=== PATIENT | male | born 1940 | race Caucasian/White ===

== ENCOUNTER 2017-08-30 01:48 | Inpatient (IN) ==
[2017-08-30 02:51] LABS: Baso # (Auto) 0.1 th/mm3 (0.0-0.2); Baso % (Auto) 0.2 % (0.0-2.0); Eos # (Auto) 0.2 th/mm3 (0.0-0.4); Eos % (Auto) 0.9 % (0.0-4.0); Hematocrit 42.8 % (39.0-51.0); Hemoglobin 13.9 gm/dL (13.0-17.0); Lymph % (Auto) 4.4 % (9.0-44.0); Mean Corpuscular HGB Conc 32.4 % (32.0-36.0); Mean Corpuscular Hemoglobin 26.7 pg (27.0-34.0); Mean Corpuscular Volume 82.5 fL (80.0-100.0); Mean Platelet Volume 7.4 fL (7.0-11.0); Mono # (Auto) 1.2 th/mm3 (0.0-0.9); Neut % (Auto) 89.5 % (16.0-70.0); Platelet Count 371 th/mm3 (150-450); Red Blood Count 5.18 mil/mm3 (4.50-5.90); Red Cell Distribution Width 15.3 % (11.6-17.2); White Blood Count 23.4 th/mm3 (4.0-11.0)
[2017-08-30 03:04] LABS: Activated Partial Thrombo Time 53.1 sec (24.3-30.1); Prothrombin Time 20.2 sec (9.8-11.6)
[2017-08-30 03:08] LABS: Albumin 1.7 g/dL (3.4-5.0); Anion Gap 15 meq/L (5-15); Aspartate Aminotransferase 20 U/L (15-37); Blood Urea Nitrogen 7 mg/dL (7-18); Calcium 8.5 mg/dL (8.5-10.1); Carbon Dioxide 21.2 meq/L (21.0-32.0); Chloride 108 meq/L (98-107); D-Dimer 1.13 mg/L FEU (0.00-0.50); Glomerular Filtration Rate 73 mL/min (>89); Glucose,Random 95 mg/dL (74-106); Magnesium 1.8 mg/dL (1.5-2.5); Potassium 3.7 meq/L (3.5-5.1); Sodium 144 meq/L (136-145)
[2017-08-30 03:12] LABS: Alkaline Phosphatase 81 U/L (45-117); Total Protein 5.5 g/dL (6.4-8.2)
[2017-08-30 03:13] LABS: Creatine Kinase 28 U/L (39-308)
[2017-08-30] MEDS ORDERED: Vancomycin Inj 1 GM/200 ML PIGGYBACK IV.SIG ONE (03:47)
--- NOTE | 2017-08-30 03:53 | XR ---
EXAM DATE: 08/30/2017 3:32 AM EDT AGE/SEX: 76 years / Male INDICATIONS: Shortness of breath. CLINICAL DATA: This is the patient's initial encounter. Patient reports that signs and symptoms have been present for 1 day and indicates a pain score of Nonresponsive. MEDICAL/SURGICAL HISTORY: Hypertension. Stroke. Carcinoma, prostatic. Dementia. Parkinson's. . Heart valve replacement. COMPARISON: No prior exams available for comparison. FINDINGS: Single AP view of the chest. Median sternotomy wires. Prosthetic cardiac valve. Mild right hemidiaphr agm elevation. Small right pleural effusion. Mild bilateral pulmonary parenchymal opacity likely repr esenting mild pulmonary edema. CONCLUSION: 1. Mild bilateral hazy pulmonary opacity, likely representing mild pulmonary edema. 2. Small right pleural effusion. Electronically signed by: Clark Busch MD 08/30/2017 3:52 AM EDT
[2017-08-30 04:35] LABS: Bacteria,Urine Few /hpf; Bilirubin,Urine Negative (Negative); Calcium Oxalate Crystals,Urine Occasional /hpf; Clarity,Urine Turbid (Clear); Color,Urine Amber (Yellw/Straw); Glucose,Urine (UA) Negative (Negative); Leukocyte Esterase,Urine Large (Negative); Nitrite,Urine Negative (Negative); Specific Gravity,Urine 1.036 (1.002-1.035)
--- NOTE | 2017-08-30 05:03 | ED ---
HPI General Chief complaint: Respiratory Symptoms Stated complaint: Diff breathing, EVAC Time Seen by Provider: 08/30/17 02:08 History of Present Illness HPI narrative: Patient presented from [facility] and rehab secondary to respiratory distress. Satting 70% on 2 L with rales in all lung louis per EMS. Receiving IV Zosyn for presumed sepsis (stage 4 ulcer). They used the BVM his O2 sats increased to 80%. He is a DNR/DNI. Unable to get history from the patient secondary to have being on BiPAP. Related Data Allergies Allergy/AdvReac Type Severity Reaction Status Date / Time No Known Allergies Allergy Mild Uncoded 08/27/05 01:39 Review of Systems ROS Unobtainable other [facility] Medical History Medical History Atrial fibrillation (Acute) CVA (cerebral vascular accident) (Acute) Dementia (Acute) Edema (Acute) GERD (gastroesophageal reflux disease) (Acute) Hypertension (Acute) Hypokalemia (Acute) PTSD (post-traumatic stress disorder) (Acute) Parkinson disease (Acute) Pressure ulcer (Acute) Prostate cancer (Acute) Surgical History Surgical History Hx of prosthetic heart valve (Acute) Social History Social History Substance History: Unable to Obtain Smoking Status: Unknown if ever smoked How Often Do You Have a Drink Containing Alcohol: Unable to Obtain Recent Travel in [facility] within the Last 8 Weeks: No Recent Out of Country Travel within the Last 8 Weeks: No Immunization History Tetanus Immunization: Unable to Assess Exam Narrative Exam Narrative: GENERAL: In respiratory distress. SKIN: Focused skin assessment warm/dry. HEAD: Atraumatic. Normocephalic. EYES: Pupils equal and round. No scleral icterus. No injection or drainage. ENT: No nasal bleeding or discharge. Mucous membranes pink and moist. NECK: Trachea midline. No JVD. CARDIOVASCULAR: Regular rate and rhythm. No murmur appreciated. RESPIRATORY: Coarse breath sounds bilaterally, tachypneic. GASTROINTESTINAL: Abdomen soft, non-tender, nondistended. Hepatic and splenic margins not palpable. Stage 4 ulcer, no drainage, slight erythema around wound. MUSCULOSKELETAL: Extremities in contractures. NEUROLOGICAL: Awake and alert. No obvious cranial nerve deficits. Motor grossly within normal limits. Normal speech. PSYCHIATRIC: Appropriate mood and affect; insight and judgment normal. Course Initial Documented Vital Signs Temperature 97.8 F 08/30/17 01:54 Pulse Rate 111 H 08/30/17 01:54 Respiratory Rate 24 08/30/17 01:54 Blood Pressure 154/112 H 08/30/17 01:54 Pulse Oximetry 100 08/30/17 01:54 Last Documented Vital Signs Temperature 97.8 F 08/30/17 01:54 Pulse Rate 122 H 08/30/17 03:15 Respiratory Rate 24 08/30/17 03:15 Blood Pressure 168/81 H 08/30/17 03:15 Pulse Oximetry 100 08/30/17 03:15 Medical Decision Making [facility] Narrative Medical decision making narrative: Patient presents to the ER and respiratory distress. Patient was placed on BiPAP and labs/EKG/chest x-ray ordered. ECG: Difficult to assess secondary to patient's respiratory, rate approximately 99, A. fib, left axis deviation, QTC 427.Given 1gram IV vancomycin in ER as he's already getting zosyn. Labs: elevated wbc count, INR 2, elevated d-dimer, BNP increased, Ua-+ UTI, CXR: CONCLUSION: 1. Mild bilateral hazy pulmonary opacity, likely representing mild pulmonary edema. 2. Small right pleural effusion. CTA chest: CONCLUSION:1. No evidence of pulmonary embolus.2. 3 cm filling defectin the left atrium suspicious for thrombus.3. Moderate severity bilateral lower lobe pulmonary consolidation/atelectasis and small pleural effusions.4. 7 mm nodular density right upper lobe. Recommend six-month follow-up noncontrast chest CT.5. Cholelithiasis. Differential Diagnosis Differential Diagnosis: Pneumonia, PE, pulmonary edema, pleural effusion, pneumothorax Lab Data Result diagrams: 08/30/17 02:40 08/30/17 02:40 Lab Results 08/30/17 08/30/17 08/30/17 Range/Units 02:40 02:40 02:40 WBC 23.4 H (4.0-11.0) th/mm3 RBC 5.18 (4.50-5.90) mil/mm3 Hgb 13.9 (13.0-17.0) gm/dL Hct 42.8 (39.0-51.0) % MCV 82.5 (80.0-100.0) fL MCH 26.7 L (27.0-34.0) pg MCHC 32.4 (32.0-36.0) % RDW 15.3 (11.6-17.2) % Plt Count 371 (150-450) th/mm3 MPV 7.4 (7.0-11.0) fL Neut % (Auto) 89.5 H (16.0-70.0) % Lymph % (Auto) 4.4 L (9.0-44.0) % Grainger % (Auto) 5.0 (0.0-8.0) % Eos % (Auto) 0.9 (0.0-4.0) % Baso % (Auto) 0.2 (0.0-2.0) % Neut # (Auto) 21.0 H (1.8-7.7) th/mm3 Lymph # (Auto) 1.0 (1.0-4.8) th/mm3 Grainger # (Auto) 1.2 H (0.0-0.9) th/mm3 Eos # (Auto) 0.2 (0.0-0.4) th/mm3 Baso # (Auto) 0.1 (0.0-0.2) th/mm3 WBC Differential . Differential Comment Auto diff final PT 20.2 H (9.8-11.6) sec INR 2.0 Ratio APTT 53.1 H (24.3-30.1) sec D-Dimer Quant (PE/DVT) 1.13 H (0.00-0.50) mg/L FEU Sodium 144 (136-145) meq/L Potassium 3.7 (3.5-5.1) meq/L Chloride 108 H (98-107) meq/L Carbon Dioxide 21.2 (21.0-32.0) meq/L Anion Gap 15 (5-15) meq/L BUN 7 (7-18) mg/dL Creatinine 0.99 (0.60-1.30) mg/dL Estimated GFR 73 L (>89) mL/min Random Glucose 95 (74-106) mg/dL Calcium 8.5 (8.5-10.1) mg/dL Magnesium 1.8 (1.5-2.5) mg/dL Total Bilirubin 0.7 (0.2-1.0) mg/dL AST 20 (15-37) U/L ALT Less than 6 L (12-78) U/L Alkaline Phosphatase 81 (45-117) U/L Total Creatine Kinase 28 L (39-308) U/L Troponin I Less than 0.02 L (0.02-0.05) ng/mL B-Natriuretic Peptide (0-100) pg/mL Total Protein 5.5 L (6.4-8.2) g/dL Albumin 1.7 L (3.4-5.0) g/dL Urine Color (Yellw/Straw) Urine Clarity (Clear) Urine pH (5.0-8.5) Ur Specific [place] (1.002-1.035) Urine Protein (Neg-Trace) mg/dL Urine Glucose (UA) (Negative) mg/dL Urine Ketones (Negative) mg/dL Urine Occult Blood (Negative) Urine Nitrate (Negative) Urine Bilirubin (Negative) Urine Urobilinogen (Less than 2) mg/dL Ur Leukocyte Esterase (Negative) Urine RBC (0-3) /hpf Urine WBC (0-5) /hpf Urine WBC Clumps (None) Calcium Oxalate Crystal (None) /hpf Urine Bacteria (None) /hpf Urine Yeast (None) /hpf Micro UA Comment Urine Culture Comments 08/30/17 08/30/17 Range/Units 02:40 04:10 WBC (4.0-11.0) th/mm3 RBC (4.50-5.90) mil/mm3 Hgb (13.0-17.0) gm/dL Hct (39.0-51.0) % MCV (80.0-100.0) fL MCH (27.0-34.0) pg MCHC (32.0-36.0) % RDW (11.6-17.2) % Plt Count (150-450) th/mm3 MPV (7.0-11.0) fL Neut % (Auto) (16.0-70.0) % Lymph % (Auto) (9.0-44.0) % Grainger % (Auto) (0.0-8.0) % Eos % (Auto) (0.0-4.0) % Baso % (Auto) (0.0-2.0) % Neut # (Auto) (1.8-7.7) th/mm3 Lymph # (Auto) (1.0-4.8) th/mm3 Grainger # (Auto) (0.0-0.9) th/mm3 Eos # (Auto) (0.0-0.4) th/mm3 Baso # (Auto) (0.0-0.2) th/mm3 WBC Differential Differential Comment PT (9.8-11.6) sec INR Ratio APTT (24.3-30.1) sec D-Dimer Quant (PE/DVT) (0.00-0.50) mg/L FEU Sodium (136-145) meq/L Potassium (3.5-5.1) meq/L Chloride (98-107) meq/L Carbon Dioxide (21.0-32.0) meq/L Anion Gap (5-15) meq/L BUN (7-18) mg/dL Creatinine (0.60-1.30) mg/dL Estimated GFR (>89) mL/min Random Glucose (74-106) mg/dL Calcium (8.5-10.1) mg/dL Magnesium (1.5-2.5) mg/dL Total Bilirubin (0.2-1.0) mg/dL AST (15-37) U/L ALT (12-78) U/L Alkaline Phosphatase (45-117) U/L Total Creatine Kinase (39-308) U/L Troponin I (0.02-0.05) ng/mL B-Natriuretic Peptide 461 H (0-100) pg/mL Total Protein (6.4-8.2) g/dL Albumin (3.4-5.0) g/dL Urine Color [place] (Yellw/Straw) Urine Clarity Turbid H (Clear) Urine pH 5.0 (5.0-8.5) Ur Specific [place] 1.036 H (1.002-1.035) Urine Protein 30 H (Neg-Trace) mg/dL Urine Glucose (UA) Negative (Negative) mg/dL Urine Ketones Trace (Negative) mg/dL Urine Occult Blood Large H (Negative) Urine Nitrate Negative (Negative) Urine Bilirubin Negative (Negative) Urine Urobilinogen Less than 2 (Less than 2) mg/dL Ur Leukocyte Esterase Large H (Negative) Urine RBC 75 H (0-3) /hpf Urine WBC (0-5) /hpf Urine WBC Clumps Occasional H (None) Calcium Oxalate Crystal Occasional H (None) /hpf Urine Bacteria Few H (None) /hpf Urine Yeast Many H (None) /hpf Micro UA Comment Cath-culture ind Urine Culture Comments Cath-cult indicated Imaging Data Radiologist's impression: ITS Impressions Chest X-Ray 08/30/17 02:22 CONCLUSION: 1. Mild bilateral hazy pulmonary opacity, likely representing mild pulmonary edema. 2. Small right pleural effusion. Chest CTA 08/30/17 03:47 CONCLUSION: 1. No evidence of pulmonary embolus. 2. 3 cm filling defect in the left atrium suspicious for thrombus. 3. Moderate severity bilateral lower lobe pulmonary consolidation/atelectasis and small pleural effusions. 4. 7 mm nodular density right upper lobe. Recommend six-month follow-up noncontrast chest CT. 5. Cholelithiasis. Discharge Plan Discharge Disposition Patient Disposition: 30 Still Patient Discharge Condition Condition: Fair Discharge Details Discharge Problem: Pneumonia, Bacterial UTI Physicians Team ED Provider: Cris Blanton Primary Care Provider: Herminio Mendez Attending Provider: Juliana Hidalgo Discharge Interventions Interventions: Vital Signs Last Done: 08/30/17 03:15 Status ED Status: Admitted Patient
--- NOTE | 2017-08-30 05:07 | CT ---
EXAM DATE: 08/30/2017 4:45 AM EDT AGE/SEX: 76 years / Male INDICATIONS: Shortness of breath; rule out pulmonary embolus. CLINICAL DATA: This is the patient's initial encounter. Patient reports that signs and symptoms have been present for 1 day and indicates a pain score of 0/10. MEDICAL/SURGICAL HISTORY: Cardiovascular disease. Gastroesophageal reflux disease. Hypertension. Parkinsons disease, Dementia, . Valve replacement RADIATION DOSE: 10.68 CTDI (mGy) COMPARISON: No prior exams available for comparison. TECHNIQUE: Volumetric scanning was performed using a multi-row detector CT scanner during bolus infu jarred of 77 ml Omnipaque 350 (iohexol) nonionic water-soluble contrast as a single exam dose. The sandro a was post processed with a variety of visualization algorithms including full volume maximum intensi ty projection and sliding thin slab reformation. Using automated exposure control and adjustment of the mA and/or kV according to patient size, radiation dose was kept as low as reasonably achievable t o obtain optimal diagnostic quality images. DICOM format image data is available electronically for review and comparison. FINDINGS: There is good opacification of the pulmonary arteries. No filling defects to suggest pulmonary embolu s. Approximately 3 cm filling defect is seen anteriorly within the left atrium suggesting thrombus. The thoracic aorta is normal diameter. Moderate-sized areas of pulmonary consolidation/atelectasis in the lower lobes bilaterally. 7 mm nodu lar density in the right upper lobe on image #44. Small bilateral pleural effusions left greater than right. Mildly prominent precarinal lymph node fay suring 1.3 cm. Coronary artery calcification noted. Calcified gallstones in the gallbladder. CONCLUSION: 1. No evidence of pulmonary embolus. 2. 3 cm filling defect in the left atrium suspicious for thrombus. 3. Moderate severity bilateral lower lobe pulmonary consolidation/atelectasis and small pleural effu sions. 4. 7 mm nodular density right upper lobe. Recommend six-month follow-up noncontrast chest CT. 5. Cholelithiasis. Electronically signed by: Clark Busch MD 08/30/2017 5:05 AM EDT
[2017-08-30] MEDS ORDERED: Vancomycin Consult Pharmacy 1 EACH OTHER SCH (05:50)
[2017-08-30] MEDS ORDERED: Acetaminophen 325 MG Tablet PO PRN (05:55)
[2017-08-30] MEDS ORDERED: Bisacodyl 10 MG Supp RECTAL PRN (05:55)
[2017-08-30] MEDS: Heparin - SQ 10,000 UNITS/ML Vial SQ SCH ×2 (06:52→17:37)
[2017-08-30] MEDS: Piperacil/Tazo 4.5 GM Premix 4.5 GM/100 ML BAG IV.SIG SCH ×3 (09:30→21:13)
--- NOTE | 2017-08-30 11:13 | ECG ---
Date Performed: 08/30/2017 Time Performed: 03:32:08 PTAGE: 76 years EKG: POSSIBLE ATRIAL FIBRILLATION EXTENSIVE BASELINE ARTEFACT LEFT BUNDLE BRANCH BLOCK ABNORMAL ECG PREVIOUS TRACING : 09/07/2005 00.37 Compared to previous tracing, extensive baseline artefact a nd left bundle branch block pattern are now present. DOCTOR: Omer Gregg Interpretating Date/Time 08/30/2017 11:12:54
[2017-08-30 12:09] LABS: ABG Base Excess -3.3 mmol/L (-2-2); ABG PCO2 27 mmHg (38-42); ABG PO2 237 mmHg (61-120)
[2017-08-30] MEDS: Senna/Docusate Sodium 8.6/50 MG Tablet PO SCH ×2 (14:59→20:54)
--- NOTE | 2017-08-30 16:20 | P.HPIM ---
History of Present Illness Primary Care Physician: Herminio Mendez MD Chief Complaint: sob, sent for evaluation History of Present Illness: The patient is chronically ill 76-year-old male with past medical history of advanced Parkinson's, bedbound, atrial fibrillation, endocarditis status post valve replacement, prostate cancer. The [facility] for further evaluation of respiratory distress. He was saturating 70% on 2 L by nasal cannula with Rales in all lung louis when EMS arrived. Patient also has stage IV ulcer and he receive IV Zosyn for sepsis. The patient is DNR/ DNI. History is obtained from records, staff and spoke with his by phone. also is telling me she was talking with hospice residential facility and she is considering hospice. However what the is very upset because EMS brought the patient [place] and she wanted the patient to go to [facility] was he always being there admitted and he was recently admitted at [facility] for sepsis stage 4 decub ulcers. The patient follows with neurologist Dr. Childress and also with his PCP. Inpatient Certification: I certify that the inpatient services were ordered in accordance with Medicare regulations governing the order. This includes certification that hospital inpatient services are reasonable and necessary and in the case of services not specified as inpatient-only under 42 CFR 419.22(n), that they are appropriately provided as inpatient services in accordance to with the 2-midnight benchmark under 43 CFR 412.3(e) Estimated Total Length of Stay (Days): 3 Plans for Post Hospital Care: Not yet determined Review of Systems Ros review by as patient not able to communicate. Ros negative except as stated in HPI. PMFSH - History History Provided By: Family Member (I spoke with his ) - Medical History Medical History: Medical History (Last Reviewed 08/30/17 @ 15:44 by Lawanda Bustamante MD) Atrial fibrillation CVA (cerebral vascular accident) Dementia Edema GERD (gastroesophageal reflux disease) Hypertension Hypokalemia PTSD (post-traumatic stress disorder) Parkinson disease Pressure ulcer Prostate cancer - Surgical History Surgical History: Surgical History (Last Reviewed 08/30/17 @ 15:44 by Lawanda Bustamante MD) Hx of prosthetic heart valve - Family History Family History: Family History (Last Updated 08/30/17 @ 15:47 by Lawanda Bustamante MD) Mother Stroke Father Prostate CA - Tobacco History Smoking Status: Unknown if ever smoked - Alcohol History How Often Do You Have a Drink Containing Alcohol: Unable to Obtain - Substance Use History Substance History: Unable to Obtain - Travel History Recent Travel in the [place] Within the Last 8 Weeks: No Recent Travel Out of the Country Within the Last 8 Weeks: No - Immunization History Tetanus Immunization: Unable to Assess Medications and Allergies Active Medications: Active Medications Acetaminophen (Tylenol) 650 mg PO Q4H PRN PRN Reason: Temp > 100.4 Al Hydroxide/Mg Hydroxide (Milk Of Magnesia Liq) 30 ml PO Q12H PRN PRN Reason: Mild Constipation Bisacodyl (Dulcolax Supp) 10 mg RECTAL DAILY PRN PRN Reason: SEVERE CONSITIPATION Heparin Sodium (Porcine) (Heparin Inj) 5,000 units SQ Q12H [facility] Last Admin: 08/30/17 06:52 Dose: 5,000 units Pharmacy Profile Note (Vancomycin Consult Pharmacy) 0 mls @ 0 mls/hr OTHER UNSCH [facility] Piperacillin/Tazobactam/Dextrose (Zosyn 4.5 Gm Premix) 4.5 gm in 100 mls @ 200 mls/hr IV.SIG Q6H [facility] Last Admin: 08/30/17 09:30 Dose: Not Given Vancomycin HCl 1,500 mg/ (Sodium Chloride) 515 mls @ 250 mls/hr IV.SIG Q18H [facility] Lactulose (Lactulose Liq) 30 ml PO DAILY PRN PRN Reason: SEVERE CONSITIPATION Miscellaneous Information ([facility] Ordered Lab Info) 0 each OTHER ONCE ONE Stop: 09/01/17 05:46 Ondansetron HCl (Zofran Inj) 4 mg IV.PUSH Q6H PRN PRN Reason: NAUSEA OR VOMITING Senna/Docusate Sodium (Marisa-Colace) 1 tab PO BID [facility] Last Admin: 08/30/17 14:59 Dose: Not Given Sennosides (Senokot) 17.2 mg PO Q12H PRN PRN Reason: Moderate Constipation Allergies Allergy/AdvReac Type Severity Reaction Status Date / Time No Known Allergies Allergy Mild Uncoded 08/27/05 01:39 Exam Vital signs: Vital Signs 08/30/17 01:54 08/30/17 02:04 08/30/17 02:15 Temperature 97.8 F Pulse Rate 111 H 119 H Respiratory Rate 24 24 24 Blood Pressure 154/112 H 154/112 H Pulse Oximetry 100 100 08/30/17 02:27 08/30/17 03:15 08/30/17 07:00 Temperature Pulse Rate 122 H 105 H Respiratory Rate 24 18 Blood Pressure 168/81 H 183/85 H Pulse Oximetry 100 100 100 08/30/17 08:35 08/30/17 12:00 Temperature 97.8 F Pulse Rate 86 Respiratory Rate 18 17 Blood Pressure 129/72 Pulse Oximetry 97 Intake & Output 08/29/17 08/30/17 08/30/17 18:59 06:59 18:59 Weight 76.204 kg Narrative: GENERAL: Elderly male, cachectic, chronically ill appearance with shortness of breath saturating well while on nonrebreather mask at this time SKIN: Warm and dry. Stage IV sacral decubitus ulcers present on admission HEAD: Atraumatic. Normocephalic. EYES: Pupils equal and round. No scleral icterus. ENT: No nasal bleeding or discharge. NECK: Trachea midline. No JVD. CARDIOVASCULAR: Regular rate and rhythm. RESPIRATORY: No accessory muscle use. Bronchial, course respiratory sounds. No wheezing. GASTROINTESTINAL: Abdomen soft, non-tender, nondistended. Hepatic and splenic margins not palpable. MUSCULOSKELETAL: Extremities without clubbing, cyanosis, or edema. No obvious deformities. NEUROLOGICAL: Awake and alert. No obvious cranial nerve deficits. Results - Labs CBC & Chem 7: 08/30/17 02:40 08/30/17 02:40 Labs: Short CBC 08/30/17 Range/Units 02:40 WBC 23.4 H (4.0-11.0) th/mm3 Hgb 13.9 (13.0-17.0) gm/dL Hct 42.8 (39.0-51.0) % Plt Count 371 (150-450) th/mm3 BMP 08/30/17 02:40 Sodium 144 Potassium 3.7 Chloride 108 H Carbon Dioxide 21.2 BUN 7 Creatinine 0.99 Calcium 8.5 Cardiac Enzymes 08/30/17 Range/Units 02:40 Total Creatine Kinase 28 L (39-308) U/L Troponin I Less than 0.02 L (0.02-0.05) ng/mL Liver Function 08/30/17 Range/Units 02:40 Total Bilirubin 0.7 (0.2-1.0) mg/dL AST 20 (15-37) U/L ALT Less than 6 L (12-78) U/L Alkaline Phosphatase 81 (45-117) U/L Albumin 1.7 L (3.4-5.0) g/dL Urine 08/30/17 Range/Units 04:10 Urine Color Dinora (Yellw/Straw) Urine Clarity Turbid H (Clear) Urine pH 5.0 (5.0-8.5) Ur Specific [place] 1.036 H (1.002-1.035) Urine Protein 30 H (Neg-Trace) mg/dL Urine Glucose (UA) Negative (Negative) mg/dL - Imaging Impressions Chest X-Ray 08/30/17 02:22 CONCLUSION: 1. Mild bilateral hazy pulmonary opacity, likely representing mild pulmonary edema. 2. Small right pleural effusion. Chest CTA 08/30/17 03:47 CONCLUSION: 1. No evidence of pulmonary embolus. 2. 3 cm filling defect in the left atrium suspicious for thrombus. 3. Moderate severity bilateral lower lobe pulmonary consolidation/atelectasis and small pleural effusions. 4. 7 mm nodular density right upper lobe. Recommend six-month follow-up noncontrast chest CT. 5. Cholelithiasis. Caprini VTE Risk Assessment Caprini VTE Risk Assessment: Moderate/High Risk (score >= 2) Caprini Risk Assessment Model: Point Value = 1 Point Value = 2 Point Value = 3 Point Value = 5 Age 41-60 Minor surgery BMI > 25 kg/m2 Swollen legs Varicose veins or History of unexplained or recurrent spontaneous Oral contraceptives or hormone replacement Sepsis (< 1 month) Serious lung disease, including pneumonia (< 1 month) Abnormal pulmonary function Acute myocardial infarction Congestive heart failure (< 1 month) History of inflammatory bowel disease Medical patient at bed rest Age 61-74 Arthroscopic surgery Major open surgery (> 45 min) Laparoscopic surgery (> 45 min) Malignancy Confined to bed (> 72 hours) Immobilizing plaster cast Central venous access Age >= 75 History of VTE Family history of VTE Factor V Leiden Prothrombin [id number] Lupus anticoagulant Anticardiolipin antibodies Elevated serum homocysteine Heparin-induced thrombocytopenia Other congenital or acquired thrombophilia Stroke (< 1 month) Elective arthroplasty Hip, pelvis, or leg fracture Acute spinal cord injury (< 1 month) Prophylaxis Regimen: Total Risk Factor Score Risk Level Prophylaxis Regimen 0-1 Low Early ambulation 2 Moderate Order ONE of the following: *Sequential Compression Device (SCD) *Heparin 5000 units SQ BID 3-4 Higher Order ONE of the following medications: *Heparin 5000 units SQ TID *Enoxaparin/Lovenox 40 mg SQ daily (WT < 150 kg, CrCl > 30 mL/min) *Enoxaparin/Lovenox 30 mg SQ daily (WT < 150 kg, CrCl > 10-29 mL/min) *Enoxaparin/Lovenox 30 mg SQ BID (WT < 150 kg, CrCl > 30 mL/min) AND/OR *Sequential Compression Device (SCD) 5 or more Highest Order ONE of the following medications: *Heparin 5000 units SQ TID (Preferred with Epidurals) *Enoxaparin/Lovenox 40 mg SQ daily (WT < 150 kg, CrCl > 30 mL/min) *Enoxaparin/Lovenox 30 mg SQ daily (WT < 150 kg, CrCl > 10-29 mL/min) *Enoxaparin/Lovenox 30 mg SQ BID (WT < 150 kg, CrCl > 30 mL/min) AND *Sequential Compression Device (SCD) Assessment and Plan - Plan Acute respiratory failure patient placed on BiPAP as he was dessating in 80s. Sepsis with (tachycardia, tachypnea, leukocytosis, source of infection possible pneumonia and UTI, sacral decubitus ulcers stage IV on admission) Stage 4 sacral decubitus ulcers Atrial fibrillation. Elevated BNP possible CHF unknown EF. Will do 2D ECHO Advanced Parkinson's, bedbound Small right pleural effusion 7 mm nodular density right upper lobe of lung seen by CT recommend follow-up noncontrast CT chest in 6 months History of 3 cm thrombus in the left atrium Cholelithiasis DNR/DNI CODE STATUS Obtain blood cultures, urine cultures, wound cultures, follow-up results Start IV antibiotics Zosyn and vancomycin Duo nebs, steroids, Lasix by 1 time IV 20 mg. Elevated BNP poss CHF with exacerbation. Will do 2D ECHO Monitor vital signs. Monitor kidney function Trend white blood cells ABG. Maintain oxygen saturation more than 94.Consult pulm if need. Restart home medications as appropriate Consult his neurology Dr Elliott Consult wound care Consult palliative care for goals of care and hospice as had discussions with hospice while at [facility] CODE STATUS: DNR/ DNI Discussed at length with his , nurse, case management CM is following for possible transfer to [facility] as per request.
[2017-08-30] MEDS ORDERED: Dextrose 50% in Water 50 ML Vial IV.PUSH PRN (16:39)
[2017-08-30] MEDS ORDERED: Vancomycin Inj 1,000 MG in Sodium Chlor 0.9% Inj 250 ML IV.SIG SCH (17:00)
[2017-08-30] MEDS ORDERED: Vancomycin Inj 1,500 MG in Sodium Chlor 0.9% Inj 500 ML IV.SIG SCH (18:00)
[2017-08-31] MEDS: Piperacil/Tazo 4.5 GM Premix 4.5 GM/100 ML BAG IV.SIG SCH ×4 (03:33→22:07)
[2017-08-31] MEDS: Heparin - SQ 10,000 UNITS/ML Vial SQ SCH ×2 (05:40→18:23)
[2017-08-31 08:50] LABS: Baso # (Auto) 0.1 th/mm3 (0.0-0.2); Baso % (Auto) 0.2 % (0.0-2.0); Eos # (Auto) 0.4 th/mm3 (0.0-0.4); Eos % (Auto) 1.5 % (0.0-4.0); Hematocrit 41.3 % (39.0-51.0); Hemoglobin 13.5 gm/dL (13.0-17.0); Lymph # (Auto) 0.7 th/mm3 (1.0-4.8); Lymph % (Auto) 2.4 % (9.0-44.0); Mean Corpuscular HGB Conc 32.7 % (32.0-36.0); Mean Corpuscular Hemoglobin 26.9 pg (27.0-34.0); Mean Corpuscular Volume 82.4 fL (80.0-100.0); Mean Platelet Volume 7.9 fL (7.0-11.0); Mono # (Auto) 0.6 th/mm3 (0.0-0.9); Neut # (Auto) 26.5 th/mm3 (1.8-7.7); Neut % (Auto) 93.9 % (16.0-70.0); Platelet Count 331 th/mm3 (150-450); Red Blood Count 5.01 mil/mm3 (4.50-5.90); White Blood Count 28.2 th/mm3 (4.0-11.0)
[2017-08-31 09:12] LABS: Calcium 8.5 mg/dL (8.5-10.1); Carbon Dioxide 21.2 meq/L (21.0-32.0); Potassium 3.2 meq/L (3.5-5.1)
[2017-08-31] MEDS: Lisinopril 10 MG Tablet PO SCH (09:29)
[2017-08-31] MEDS: Senna/Docusate Sodium 8.6/50 MG Tablet PO SCH ×2 (09:29→22:06)
[2017-08-31] MEDS: amLODIPine 5 MG Tablet PO SCH (09:29)
--- NOTE | 2017-08-31 14:02 | P.PNWCN ---
Wound Care Nurse Consult Description: Wound consult ordered by for wound management. Communicated with: Saloni BURRELL, Recommendation: 1. Please reposition patient every 2 hours for comfort and offloading. 2. Please do not place patient on cotton underpads or multiple layers with specialty surface. 3. 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 4 Apply Santyl 2mm thick to moist gauze loosely pack into wound base and cover with dry absorbant dressing. 5. Change dressing daily or as needed for dislodgement/exudate.Sign and date all dressings. 6. Contact wound care if wounds worsen or treatment fails. 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 Wound/Pressure Injury - Patient Status Premedicated for Pain Prior to Dressing Change: No - Wound Sacrum Wound Staging: Stage IV Wound Assessment: Ongoing Wound Type: Pressure Injury Is This a Chronic Wound: Yes Requested from Provider a Wound Care Consult: No (Yury BURRELL,[facility] seen pt 08/31) Length: 6.3 Width: 5.4 Depth: 2.1 Wound Bed Appearance: Necrotic, [place], Red Surrounding Tissue Appearance: Blanched/Dull, [place] Surrounding Tissue Temperature: Cool Drainage Description: Serosanguinous Drainage Amount: Moderate Drainage Odor: Slight Odor Dressing Status: Dry & Intact, Changed Cleansing Solution: Saline Wound Packing Type: Gauze Pads Cover Dressing: Adhesive Dressing Wound Dressing Change Date: 08/31/17 Incision - Patient Status Premedicated for Pain Prior to Dressing Change: No
--- NOTE | 2017-08-31 14:49 | P.DIET ---
Nutritional Evaluation Type of nutrition evaluation: initial Nutrition consult regarding: Diet Evaluation Nutrition screening: [facility] [place] Screening comments: 08/30/17 [facility] [place] Calorie Counting for eval of peg tube, also dietary recs Subjective Subjective Comments: Pt receiving a breathing treatment; eyes closed. RN Saloni reports pt has no po intake d/t he is lethargic Objective - Diagnosis Pneumonia, UTI - Objective % IBW: 107 Body Weight Used for Calculations: Actual Energy Needs - Lower Range (kCal/kg): 30 Energy Needs - Upper Range (kCal/kg): 35 Lower Limit kCal/kg (kCals): 2,070 Upper Limit kCal/kg (kCals): 2,415 Lower Limit Protein Factor (Grams per Kg): 1.2 Upper Limit Protein Factor (Grams per Kg): 1.5 Lower Protein Needs (Protein): 83 Upper Protein Needs (Protein): 104 Dietitian Reviewed in Medical Record: Current diet, Curent medications, Intake & Output, Labs, Medical history Speech Therapy Recommendations: Yes (NPO) Objective Comments: PMH: AFib, CVA, Dementia, Edema, GERD, HTN, Hypokalemia, Parkinson's Disease- bedbound, Pressure Ulcer, Prostate Cancer, PTSD Labs Include: K 3.2, BUN 13, Creatinine 2.03, estGFR 32 Meds Include: Norvasc, Sinemet, Lactulose, Lisinopril, Namenda, Zofran, VitD3 -UOP 400ml, +2BM Assessment Assessment: Pt is at nutrition risk r/t diagnosis and increased needs for wound healing. Pt is lethargic w/no po intake. Calorie Count on-hold r/t ST Recs for NPO. Additional Recs r/t Clinical Course. Recommendations: 1.Calorie Count on-hold r/t ST Recs for NPO 2.Additional Recs r/t Clinical Course Dietitian to Monitor: Lab values, Electrolytes, Renal labs, Intake & Output, Weight change, Diet advancement, Wound/skin status, Swallow recommendations, Medical course
--- NOTE | 2017-08-31 15:56 | P.CONPAL ---
Consult Service: Palliative Care Requesting Physician: Lawanda Bustamante Reason for Consult: a. To assist with evaluation and management of symptoms including: weakness, dyspnea. b. To assist medical decision maker(s) with: better understanding of current medical conditions; weighing benefits/burdens of medical treatment options; making medical treatment decisions. Primary Care Provider: Herminio Mendez MD History of Present Illness History of Present Illness: Mr. Bhatia is a 76 year old male with past medical history of atrial fibrillation, dementia, Parkinson's disease, hypertension, CVA, GERD, PTSD and prostate cancer status post cryo. In review of records patient was previously admitted at [facility] on 07/29/17 with sepsis, sacral wound, fecal impaction, leukocytosis, lactic acidosis and A. fib with RVR, evaluation was negative for UTI. It appears he was discharged to the [facility]. Patient has a history of Parkinson's and dementia was being followed by neurology, Dr. Childress. Patient presented to [facility] emergency department on 08/30/17 from the [facility] for respiratory distress. Patient's oxygen saturation was in the 70s on 2 L oxygen via NC. BVM increased saturations into the 80's. Patient was placed on BiPAP. He was unable to provide any medical history upon arrival. Initial evaluation revealed: * VS: Temp 97.8, pulse 111, respiratory rate 24, BP 154/112 * Chest x-ray: Mild bilateral hazy pulmonary obesity, likely representing pulmonary edema, small right pleural effusion. * CTA chest: No evidence of pulmonary embolus, 3 cm filling defect in the left atrium suspicious for thrombus (in review of [facility] records this was present during last admission), moderate severity bilateral lower lobe pulmonary consolidation/atelectasis and small pleural effusions, 7 mm nodular density right upper lobe for which six-month follow-up imaging is recommended, cholelithiasis. * WBC 23.4, hemoglobin 13.9, hematocrit 42.8, platelet count 371, neutrophils 89.5% * PT 20.2, INR 2.0, PTT 53.1, d-dimer 1.13 * Sodium 144, potassium 3.7, chloride 108, carbon dioxide 21.2, BUN 7, creatinine 0.99, GFR 73, glucose 95, calcium 8.5, magnesium 1.8 * Total bilirubin 0.7, AST 20, ALT less than 6, alkaline phosphatase 81 * Total creatine kinase 28, troponin less than 0.02, BNP 461 * Total protein 5.5, albumin 1.7 * Urinalysis positive leukocyte esterase, bacteria and yeast, culture indicated. Later resulted Amelie albicans. Patient was admitted with acute respiratory failure on BiPAP, sepsis, possible pneumonia and UTI, sacral decubitus ulcer stage IV, possible CHF. Neurology consult pending. Patient has had decreased appetite, dietary consulted. Wound care consulted for wound management. Patient indicated to staff that she had met with [facility] hospice and was considering hospice admission while patient was in the [facility]. Palliative care was consulted to assist with symptom management further clarification of treatment goals. . Function/Cognitive Trajectory: Patient was living at home with his prior to [facility] admission in July at that time he was "fine." He was bed to WC bound with assistance. He was eating 3 meals per day and feeding himself. reports he left [facility] to the [facility] and has had continued decline. Review of Systems unobtainable due to mental status Constitutional: Reports fatigue Respiratory: Reports shortness of breath Psychiatric: Reports change in appetite (decreased) ROS limited per report as she was busy when I called her. [facility] - History History Provided By: Family Member (I spoke with his ), Medical Record ( review of [facility] review note from recent admission) - Medical History Medical History: Medical History (Last Reviewed 08/31/17 @ 16:33 by Dayana Salguero) Atrial fibrillation CVA (cerebral vascular accident) Dementia Edema GERD (gastroesophageal reflux disease) Hypertension Hypokalemia PTSD (post-traumatic stress disorder) Parkinson disease Pressure ulcer Prostate cancer - Surgical History Surgical History: Surgical History (Last Reviewed 08/31/17 @ 16:33 by Dayana Salguero) History of appendectomy History of cryosurgery History of tonsillectomy Hx of prosthetic heart valve - Family History Family History: Family History (Last Updated 08/30/17 @ 15:47 by Lawanda Bustamante MD) Mother Stroke Father Prostate CA - Tobacco History Smoking Status: Former smoker Tobacco Type: Cigarettes Smoking End Date: Quit in 1981. - Alcohol History How Often Do You Have a Drink Containing Alcohol: Unable to Obtain (Old EMR indicates prior social alcohol use.) - Substance Use History Substance History: Unable to Obtain - Travel History Recent Travel in the [place] Within the Last 8 Weeks: No Recent Travel Out of the Country Within the Last 8 Weeks: No - Immunization History Tetanus Immunization: Unable to Assess Medications and Allergies Active Medications: Active Medications Acetaminophen (Tylenol) 650 mg PO Q4H PRN PRN Reason: Temp > 100.4 Al Hydroxide/Mg Hydroxide (Milk Of Magnesia Liq) 30 ml PO Q12H PRN PRN Reason: Mild Constipation Albuterol (Duoneb Neb (Leslie)) 1 ampul NEB Q6HR WHILE AWAKE NEB [facility] Last Admin: 08/31/17 14:01 Dose: 1 ampul Albuterol (Duoneb Neb (Prn)) 1 ampul NEB Q2HR NEB PRN PRN Reason: SHORTNESS OF BREATH/WHEEZING Amlodipine Besylate (Norvasc) 5 mg PO DAILY [facility] Last Admin: 08/31/17 09:29 Dose: Not Given Aspirin (Ecotrin) 81 mg PO DAILY [facility] Last Admin: 08/31/17 09:28 Dose: Not Given Bisacodyl (Dulcolax Supp) 10 mg RECTAL DAILY PRN PRN Reason: SEVERE CONSITIPATION Carbidopa/Levodopa (Sinemet 25/100 Mg) 1 tab PO TID [facility] Last Admin: 08/31/17 14:12 Dose: Not Given Dextrose (D50w Vial) 50 ml IV.PUSH UNSCH PRN PRN Reason: PER HYPOGLYCEMIA PROTOCOL Glucagon (Glucagon Inj) 1 mg OTHER PRN PRN PRN Reason: for Hypoglycemia Protocol Heparin Sodium (Porcine) (Heparin Inj) 5,000 units SQ Q12H [facility] Last Admin: 08/31/17 05:40 Dose: 5,000 units Pharmacy Profile Note (Vancomycin Consult Pharmacy) 0 mls @ 0 mls/hr OTHER UNSCH [facility] Piperacillin/Tazobactam/Dextrose (Zosyn 4.5 Gm Premix) 4.5 gm in 100 mls @ 200 mls/hr IV.SIG Q6H [facility] Last Admin: 08/31/17 09:27 Dose: 100 mls/hr Vancomycin HCl 1,500 mg/ (Sodium Chloride) 515 mls @ 250 mls/hr IV.SIG Q18H [facility] Last Infusion: 08/30/17 19:00 Dose: Infused Lactulose (Lactulose Liq) 30 ml PO DAILY PRN PRN Reason: SEVERE CONSITIPATION Lisinopril (Prinivil) 10 mg PO DAILY [facility] Last Admin: 08/31/17 09:29 Dose: Not Given Memantine (Namenda) 0 mg PO DAILY [facility] Last Admin: 08/31/17 09:28 Dose: Not Given Miscellaneous Information ([facility] Ordered Lab Info) 0 each OTHER ONCE ONE Stop: 09/01/17 05:46 Ondansetron HCl (Zofran Inj) 4 mg IV.PUSH Q6H PRN PRN Reason: NAUSEA OR VOMITING Pyridoxine HCl (Vitamin B-6) 50 mg PO DAILY [facility] Last Admin: 08/31/17 14:12 Dose: Not Given Senna/Docusate Sodium (Marisa-Colace) 1 tab PO BID [facility] Last Admin: 08/31/17 09:29 Dose: Not Given Sennosides (Senokot) 17.2 mg PO Q12H PRN PRN Reason: Moderate Constipation Vitamin D (Vitamin D3) 1,000 unit PO DAILY [facility] Last Admin: 08/31/17 09:28 Dose: Not Given Allergies Allergy/AdvReac Type Severity Reaction Status Date / Time No Known Allergies Allergy Mild Uncoded 08/27/05 01:39 Advance Directives Living Will: Unknown Health Care Surrogate Name and Number: Dwight Bhatia, HCP/ : [phone] or [phone] Power of [employer] 2Nd Shift: Unknown Documented care wishes: [place] DNR order signed on chart completed July. Today's verbally stated goals: Patient is unable not capacitated to make his own healthcare decisions, will not regain capacity. No known written advanced directives. According to [place] statutes, healthcare proxy decision making falls to the patient's spouse , Dwight Bhatia. Family/friends goals: Spoke with briefly via phone. She requests to meet on 09/01/17, provided my cell number so she can call me when she comes. Ethical and Legal Issues: No known concerns at this time. Physical Exam Vital Signs: Vital Signs - 24 hr 08/30/17 16:00 08/30/17 17:21 08/30/17 20:00 Temperature 97.8 F 98.6 F Pulse Rate 66 104 H Respiratory Rate 16 14 22 Blood Pressure 122/56 L 91/57 L Pulse Oximetry 100 98 08/30/17 21:48 08/31/17 00:00 08/31/17 00:25 Temperature 98 F Pulse Rate 68 89 105 H Respiratory Rate 24 20 Blood Pressure 102/57 L Pulse Oximetry 100 08/31/17 04:00 08/31/17 08:00 08/31/17 08:22 Temperature 97.9 F 97.7 F Pulse Rate 99 H 95 H Respiratory Rate 20 20 Blood Pressure 117/76 114/58 L Pulse Oximetry 98 100 99 08/31/17 12:00 08/31/17 14:03 Temperature 98.1 F Pulse Rate 96 H 73 Respiratory Rate 22 14 Blood Pressure 105/67 Pulse Oximetry 100 I&O: Intake & Output 08/29/17 08/30/17 08/31/17 09/01/17 06:59 06:59 06:59 06:59 Intake Total 1015 / 1015 Output Total 425 / 425 Balance 590 / 590 Weight 76.204 kg 69 kg Physical Exam: CONSTITUTIONAL/GENERAL: This is an elderly male, in no apparent distress. TUBES/LINES/DRAINS: Oxygen via rebreather mask, PIVs x 2 right, Herring, splint wrist, podus boots. SKIN: No jaundice, rashes, or lesions. Ecchymoses on upper extremities. Erythema right buttock. No wounds seen anteriorly. Skin temperature appropriate. Not diaphoretic. HEAD: Atraumatic. Normocephalic. EYES: eyes closed. ENT: Hearing grossly normal. Nose without bleeding or purulent drainage. Mouth closed. NECK: Trachea midline. CARDIOVASCULAR: Regular rate and rhythm without murmurs, gallops, or rubs. No JVD. Peripheral pulses symmetric. RESPIRATORY/CHEST: Old well healed sternal scar. Clear to auscultation. GASTROINTESTINAL: Abdomen soft, nondistended. No guarding. Bowel sounds present. GENITOURINARY: Without palpable bladder distension. Herring catheter in place. MUSCULOSKELETAL: Extremities without clubbing, cyanosis, or edema. No mottling or clubbing. LYMPHATICS: No palpable cervical or supraclavicular adenopathy. NEUROLOGICAL: Asleep. PSYCHIATRIC: Asleep. Diagnostic Tests Laboratory: Laboratory Results - last 72 hr 08/30/17 08/30/17 08/30/17 02:40 02:40 02:40 WBC 23.4 H RBC 5.18 Hgb 13.9 Hct 42.8 MCV 82.5 MCH 26.7 L MCHC 32.4 RDW 15.3 Plt Count 371 MPV 7.4 Neut % (Auto) 89.5 H Lymph % (Auto) 4.4 L Bee % (Auto) 5.0 Eos % (Auto) 0.9 Baso % (Auto) 0.2 Neut # (Auto) 21.0 H Lymph # (Auto) 1.0 Bee # (Auto) 1.2 H Eos # (Auto) 0.2 Baso # (Auto) 0.1 WBC Differential . Differential Comment Auto diff final PT 20.2 H INR 2.0 APTT 53.1 H D-Dimer Quant (PE/DVT) 1.13 H Puncture Site Patient Temperature O2 Saturation ABG pH ABG pCO2 ABG pO2 ABG HCO3 ABG O2 Content ABG Base Excess ABG Methemoglobin Hemoglobin Carboxyhemoglobin O2 Delivery Device Liter Flow Inspired O2 Critical Value Sodium 144 Potassium 3.7 Chloride 108 H Carbon Dioxide 21.2 Anion Gap 15 BUN 7 Creatinine 0.99 Estimated GFR 73 L POC Glucose Random Glucose 95 Lactic Acid Calcium 8.5 Magnesium 1.8 Total Bilirubin 0.7 AST 20 ALT Less than 6 L Alkaline Phosphatase 81 Total Creatine Kinase 28 L Troponin I Less than 0.02 L B-Natriuretic Peptide Total Protein 5.5 L Albumin 1.7 L Urine Color Urine Clarity Urine pH Ur Specific [place] Urine Protein Urine Glucose (UA) Urine Ketones Urine Occult Blood Urine Nitrate Urine Bilirubin Urine Urobilinogen Ur Leukocyte Esterase Urine RBC Urine WBC Urine WBC Clumps Calcium Oxalate Crystal Urine Bacteria Urine Yeast Micro UA Comment Urine Culture Comments Stl C.difficile Tox PCR St C. diff Tox Epid 027 08/30/17 08/30/17 08/30/17 02:40 03:10 04:10 WBC RBC Hgb Hct MCV MCH MCHC RDW Plt Count MPV Neut % (Auto) Lymph % (Auto) Bee % (Auto) Eos % (Auto) Baso % (Auto) Neut # (Auto) Lymph # (Auto) Bee # (Auto) Eos # (Auto) Baso # (Auto) WBC Differential Differential Comment PT INR APTT D-Dimer Quant (PE/DVT) Puncture Site Patient Temperature O2 Saturation ABG pH ABG pCO2 ABG pO2 ABG HCO3 ABG O2 Content ABG Base Excess ABG Methemoglobin Hemoglobin Carboxyhemoglobin O2 Delivery Device Liter Flow Inspired O2 Critical Value Sodium Potassium Chloride Carbon Dioxide Anion Gap BUN Creatinine Estimated GFR POC Glucose Random Glucose Lactic Acid Calcium Magnesium Total Bilirubin AST ALT Alkaline Phosphatase Total Creatine Kinase Troponin I B-Natriuretic Peptide 461 H Total Protein Albumin Urine Color Dinora Urine Clarity Turbid H Urine pH 5.0 Ur Specific [place] 1.036 H Urine Protein 30 H Urine Glucose (UA) Negative Urine Ketones Trace Urine Occult Blood Large H Urine Nitrate Negative Urine Bilirubin Negative Urine Urobilinogen Less than 2 Ur Leukocyte Esterase Large H Urine RBC 75 H Urine WBC Urine WBC Clumps Occasional H Calcium Oxalate Crystal Occasional H Urine Bacteria Few H Urine Yeast Many H Micro UA Comment Cath-culture ind Urine Culture Comments Cath-cult indicated Stl C.difficile Tox PCR Negative St C. diff Tox Epid 027 Negative 08/30/17 08/30/17 08/30/17 06:20 11:00 17:27 WBC RBC Hgb Hct MCV MCH MCHC RDW Plt Count MPV Neut % (Auto) Lymph % (Auto) Bee % (Auto) Eos % (Auto) Baso % (Auto) Neut # (Auto) Lymph # (Auto) Bee # (Auto) Eos # (Auto) Baso # (Auto) WBC Differential Differential Comment PT INR APTT D-Dimer Quant (PE/DVT) Puncture Site Right brachial Patient Temperature 98.6 O2 Saturation 98 ABG pH 7.48 H ABG pCO2 27 L ABG pO2 237 H ABG HCO3 20 L ABG O2 Content 19.4 ABG Base Excess -3.3 L ABG Methemoglobin 0.8 Hemoglobin 13.7 Carboxyhemoglobin 0.8 O2 Delivery Device Partial rebreather Liter Flow 13.00 Inspired O2 80 Critical Value No Sodium Potassium Chloride Carbon Dioxide Anion Gap BUN Creatinine Estimated GFR POC Glucose 74 Random Glucose Lactic Acid 1.5 Calcium Magnesium Total Bilirubin AST ALT Alkaline Phosphatase Total Creatine Kinase Troponin I B-Natriuretic Peptide Total Protein Albumin Urine Color Urine Clarity Urine pH Ur Specific [place] Urine Protein Urine Glucose (UA) Urine Ketones Urine Occult Blood Urine Nitrate Urine Bilirubin Urine Urobilinogen Ur Leukocyte Esterase Urine RBC Urine WBC Urine WBC Clumps Calcium Oxalate Crystal Urine Bacteria Urine Yeast Micro UA Comment Urine Culture Comments Stl C.difficile Tox PCR St C. diff Tox Epid 027 08/31/17 08/31/17 08/31/17 00:35 06:32 07:28 WBC 28.2 H RBC 5.01 Hgb 13.5 Hct 41.3 MCV 82.4 MCH 26.9 L MCHC 32.7 RDW 16.0 Plt Count 331 MPV 7.9 Neut % (Auto) 93.9 H Lymph % (Auto) 2.4 L Bee % (Auto) 2.0 Eos % (Auto) 1.5 Baso % (Auto) 0.2 Neut # (Auto) 26.5 H Lymph # (Auto) 0.7 L Bee # (Auto) 0.6 Eos # (Auto) 0.4 Baso # (Auto) 0.1 WBC Differential . Differential Comment Auto diff final PT INR APTT D-Dimer Quant (PE/DVT) Puncture Site Patient Temperature O2 Saturation ABG pH ABG pCO2 ABG pO2 ABG HCO3 ABG O2 Content ABG Base Excess ABG Methemoglobin Hemoglobin Carboxyhemoglobin O2 Delivery Device Liter Flow Inspired O2 Critical Value Sodium Potassium Chloride Carbon Dioxide Anion Gap BUN Creatinine Estimated GFR POC Glucose 78 75 Random Glucose Lactic Acid Calcium Magnesium Total Bilirubin AST ALT Alkaline Phosphatase Total Creatine Kinase Troponin I B-Natriuretic Peptide Total Protein Albumin Urine Color Urine Clarity Urine pH Ur Specific [place] Urine Protein Urine Glucose (UA) Urine Ketones Urine Occult Blood Urine Nitrate Urine Bilirubin Urine Urobilinogen Ur Leukocyte Esterase Urine RBC Urine WBC Urine WBC Clumps Calcium Oxalate Crystal Urine Bacteria Urine Yeast Micro UA Comment Urine Culture Comments Stl C.difficile Tox PCR St C. diff Tox Epid 027 08/31/17 07:28 WBC RBC Hgb Hct MCV MCH MCHC RDW Plt Count MPV Neut % (Auto) Lymph % (Auto) Bee % (Auto) Eos % (Auto) Baso % (Auto) Neut # (Auto) Lymph # (Auto) Bee # (Auto) Eos # (Auto) Baso # (Auto) WBC Differential Differential Comment PT INR APTT D-Dimer Quant (PE/DVT) Puncture Site Patient Temperature O2 Saturation ABG pH ABG pCO2 ABG pO2 ABG HCO3 ABG O2 Content ABG Base Excess ABG Methemoglobin Hemoglobin Carboxyhemoglobin O2 Delivery Device Liter Flow Inspired O2 Critical Value Sodium 145 Potassium 3.2 L Chloride 108 H Carbon Dioxide 21.2 Anion Gap 16 H BUN 13 Creatinine 2.03 H Estimated GFR 32 L POC Glucose Random Glucose 83 Lactic Acid Calcium 8.5 Magnesium Total Bilirubin AST ALT Alkaline Phosphatase Total Creatine Kinase Troponin I B-Natriuretic Peptide Total Protein Albumin Urine Color Urine Clarity Urine pH Ur Specific [place] Urine Protein Urine Glucose (UA) Urine Ketones Urine Occult Blood Urine Nitrate Urine Bilirubin Urine Urobilinogen Ur Leukocyte Esterase Urine RBC Urine WBC Urine WBC Clumps Calcium Oxalate Crystal Urine Bacteria Urine Yeast Micro UA Comment Urine Culture Comments Stl C.difficile Tox PCR St C. diff Tox Epid 027 Result Diagrams: 08/31/17 07:28 08/31/17 07:28 Microbiology: Microbiology 08/30/17 04:10 Urine Culture - Final Catheterized Urine Amelie albicans 08/30/17 06:15 Aerobic Blood Culture - Preliminary Blood - Peripheral No growth in 1 day Anaerobic Blood Culture - Preliminary No growth in 1 day 08/30/17 06:28 Aerobic Blood Culture - Preliminary Blood - Peripheral No growth in 1 day Anaerobic Blood Culture - Preliminary No growth in 1 day 08/30/17 02:40 Aerobic Blood Culture - Preliminary Blood - Peripheral No growth in 1 day Anaerobic Blood Culture - Preliminary No growth in 1 day 08/30/17 02:35 Aerobic Blood Culture - Preliminary Blood - Peripheral No growth in 1 day Anaerobic Blood Culture - Preliminary No growth in 1 day Imaging: Chest X-Ray 08/30/17 02:22 CONCLUSION: 1. Mild bilateral hazy pulmonary opacity, likely representing mild pulmonary edema. 2. Small right pleural effusion. Chest CTA 08/30/17 03:47 CONCLUSION: 1. No evidence of pulmonary embolus. 2. 3 cm filling defect in the left atrium suspicious for thrombus. 3. Moderate severity bilateral lower lobe pulmonary consolidation/atelectasis and small pleural effusions. 4. 7 mm nodular density right upper lobe. Recommend six-month follow-up noncontrast chest CT. 5. Cholelithiasis. Patient/Family Conference Present at Family Conference: Spoke with , Dwight via phone briefly. Family Conference Time: 20 Family Conference Location: Telephone Issues Discussed: * Palliative care role, purpose, approach * Patients general health, functional status, and cognitive changes in the months leading up to the current hospitalization * Palliative care contact information provided Assessment and Plan Pertinent Non-Medical Issues: Psychosocial: . Retired from real estate. Spiritual: Unknown. Legal: Patient is not capacitated to make his own healthcare decisions, will not regain capacity. Cording to [place] statutes, healthcare proxy decision making falls to his spouse Dwight. Ethical issues impacting care: No known concerns at this time. Important Contacts: * Dwight Bhatia, HCP/: [phone] or [phone] Prognosis: Overall prognosis is poor given advanced dementia/Parkinson's disease. Hospice appropriate if goals are comfort oriented. Code Status: No Code DNR Plan: * Patient is not capacitated to make his own healthcare decisions, will not regain capacity. According to [place] statutes, healthcare proxy decision making falls to his spouse Dwight. * NO CODE * Spoke briefly with patient's via telephone she indicates that she is at the [facility] and request that we meet on 09/01/17. Palliative care number provided she will call when she is planning to come tomorrow. * SYMPTOMS: Dyspnea: On oxygen via mask. Patient unresponsive. Does not appear in any distress. Will continue to monitor. * Palliative care number provided. * Positive care will continue to follow throughout hospital course to assist with symptom management further clarification of medical treatment goals. Appreciation Thank you for the opportunity to participate in the care of Petar Bhatia. Attestation Attestation: To help prompt me to consider important information that might be impacting today's encounter and assessment, information from prior notes written by myself or my colleagues may have been "brought forward" into today's note. My signature on this note, however, is an attestation that I personally performed the exam, history, and/or decision-making noted today, and, unless otherwise indicated, the interactions with patient, family, and staff as well as the review of records all occurred today. I also attest that the listed assessment and stated plan reflect my best clinical judgment today based on the combination of historical information, prior notes, and today's exam/ interactions. When time spent is documented, it refers only to time spent today by the signer, or if indicated, combined time spent today by collaborating physician/nurse practitioner.
--- NOTE | 2017-08-31 16:23 | MB ---
cc: Alan Brown MD, PhD DATE: 08/31/2017 REASON FOR CONSULTATION: Parkinson's disease. HISTORY OF PRESENT ILLNESS: Mr. Bhatia is a 76-year-old man who has advanced Parkinson's disease. He was admitted with respiratory distress and sepsis. He has been very bradykinetic with generalized weakness. He has also history of endocarditis with valve replacement, prostatic cancer, atrial fibrillation, history of stroke in the past. CURRENT MEDICATIONS: 1. Tylenol. 2. DuoNeb. 3. Norvasc 5 mg daily. 4. Ecotrin 81 mg daily. 5. Dulcolax. 6. Sinemet 25/100 t.i.d. 7. Dextrose. 8. Glucagon. 9. Subcutaneous heparin. 10. Lactulose. 11. Prinivil. 12. Namenda. 13. Zofran. 14. Zosyn. 15. Senokot. 16. Vancomycin. NEUROLOGICAL EXAMINATION: VITAL SIGNS: Blood pressure is 114/58, pulse 95, respiratory rate is 20, temperature is 97.7 degrees. HIGHER CORTICAL FUNCTION: He is very lethargic, minimally responsive. CRANIAL NERVES: Intact. MOTOR EXAM: He is very bradykinetic with marked cogwheel rigidity in the upper and lower extremities and generalized weakness. IMAGING STUDIES: Chest CTA: No evidence of PE, 3 cm filling defect left atrium, possible thrombosis; pulmonary consolidation, 7 mm density right upper lobe. IMPRESSION AND PLAN: Severe parkinsonism, which has been exacerbated by his underlying medical illness. At the present time, would recommend no other therapy for his Parkinson's disease. Alan Brown MD, PhD JAZMINE/SB , 04:08 PM , 04:21 PM
--- NOTE | 2017-08-31 16:44 | P.PN ---
Physical Exam Vital signs: Vital Signs 08/30/17 17:21 08/30/17 20:00 08/30/17 21:48 Temperature 98.6 F Pulse Rate 104 H 68 Respiratory Rate 14 22 24 Blood Pressure 91/57 L Pulse Oximetry 98 08/31/17 00:00 08/31/17 00:25 08/31/17 04:00 Temperature 98 F 97.9 F Pulse Rate 89 105 H 99 H Respiratory Rate 20 20 Blood Pressure 102/57 L 117/76 Pulse Oximetry 100 98 08/31/17 08:00 08/31/17 08:22 08/31/17 12:00 Temperature 97.7 F 98.1 F Pulse Rate 95 H 96 H Respiratory Rate 20 22 Blood Pressure 114/58 L 105/67 Pulse Oximetry 100 99 100 08/31/17 14:03 Temperature Pulse Rate 73 Respiratory Rate 14 Blood Pressure Pulse Oximetry Intake & Output 08/30/17 08/31/17 08/31/17 18:59 06:59 18:59 Intake Total 0 / 0 1015 / 1015 100 / 100 Output Total 25 / 25 400 / 400 Balance -25 / -25 615 / 615 100 / 100 Weight 69 kg Intake: IV 1015 / 1015 100 / 100 Zosyn 4.5 GM Premix 4.5 gm In 300 / 300 100 / 100 100 ml @ 200 mls/hr IV.SIG Q6H MICHELLE Rx#:[id number] Vancomycin Inj 1,500 MG In NS 515 / 515 Inj 500 ML @ 250 mls/hr IV.SIG Q18H MICHELLE Rx#:[id number] Oral 0 / 0 Output: Urine 25 / 25 Urine Amount (Catheter) 400 / 400 Indwelling Temp Sensing 400 / 400 Catheter Other: # Incontinent Voids 1 Date of Last Bowel Movement 08/30/17 08/30/17 # Bowel Movements 2 # Incontinent Bowel Movements 1 Narrative: GENERAL: Elderly male, cachectic, chronically ill appearance with shortness of breath saturating well while on nonrebreather mask at this time. Nonverbal. SKIN: Warm and dry. Stage IV sacral decubitus ulcers present on admission CARDIOVASCULAR: Regular rate and rhythm. RESPIRATORY: Bronchial, course respiratory sounds. No wheezing. GASTROINTESTINAL: Abdomen soft, non-tender, nondistended. Hepatic and splenic margins not palpable. MUSCULOSKELETAL: Extremities without clubbing, cyanosis, or edema. No obvious deformities. NEUROLOGICAL: Awake and alert. No obvious cranial nerve deficits. Nonverbal doesn't follow commands. Assessment and Plan Acute respiratory failure patient placed on BiPAP as he was dessating in 80s. Sepsis with (tachycardia, tachypnea, leukocytosis, source of infection possible pneumonia and UTI, sacral decubitus ulcers stage IV on admission) Stage 4 sacral decubitus ulcers Atrial fibrillation. Elevated BNP possible CHF unknown EF. Will do 2D ECHO Advanced Parkinson's, bedbound Small right pleural effusion 7 mm nodular density right upper lobe of lung seen by CT recommend follow-up noncontrast CT chest in 6 months History of 3 cm thrombus in the left atrium Cholelithiasis DNR/DNI CODE STATUS Obtain blood cultures, urine cultures, wound cultures, follow-up results Start IV antibiotics Zosyn and vancomycin Duo nebs, steroids, Lasix by 1 time IV 20 mg. Elevated BNP poss CHF with exacerbation. Will do 2D ECHO Monitor vital signs. Monitor kidney function Trend white blood cells ABG. Maintain oxygen saturation more than 94.Consult pulm if need. Restart home medications as appropriate Consult his neurology Dr Elliott Consult wound care Consult palliative care for goals of care and hospice as had discussions with hospice while at [facility]. Appreciate recommendations. wants hospice to follow but did not decide for hospice yet Continue recommendations for wound care per wound care recommendations CODE STATUS: DNR/ DNI Discussed with the nurse, case management, wound care nurse. CM is following [facility]. However [facility] will not take patient. is upset... - Urinary Catheter Management Indwelling Temp Sensing Catheter Cath placed during this visit: no Reason for continuing: Chronic Urinary Retention Results - Labs CBC & Chem 7: 08/31/17 07:28 08/31/17 07:28 Laboratory Results - last 24 hr 08/30/17 08/31/17 08/31/17 17:27 00:35 06:32 WBC RBC Hgb Hct MCV MCH MCHC RDW Plt Count MPV Neut % (Auto) Lymph % (Auto) Yell % (Auto) Eos % (Auto) Baso % (Auto) Neut # (Auto) Lymph # (Auto) Yell # (Auto) Eos # (Auto) Baso # (Auto) WBC Differential Differential Comment Sodium Potassium Chloride Carbon Dioxide Anion Gap BUN Creatinine Estimated GFR POC Glucose 74 78 75 Random Glucose Calcium 08/31/17 08/31/17 07:28 07:28 WBC 28.2 H RBC 5.01 Hgb 13.5 Hct 41.3 MCV 82.4 MCH 26.9 L MCHC 32.7 RDW 16.0 Plt Count 331 MPV 7.9 Neut % (Auto) 93.9 H Lymph % (Auto) 2.4 L Yell % (Auto) 2.0 Eos % (Auto) 1.5 Baso % (Auto) 0.2 Neut # (Auto) 26.5 H Lymph # (Auto) 0.7 L Yell # (Auto) 0.6 Eos # (Auto) 0.4 Baso # (Auto) 0.1 WBC Differential . Differential Comment Auto diff final Sodium 145 Potassium 3.2 L Chloride 108 H Carbon Dioxide 21.2 Anion Gap 16 H BUN 13 Creatinine 2.03 H Estimated GFR 32 L POC Glucose Random Glucose 83 Calcium 8.5 Microbiology 08/30/17 04:10 Catheterized Urine Urine Culture - Final Amelie albicans 08/30/17 06:15 Blood - Peripheral Aerobic Blood Culture - Preliminary No growth in 1 day 08/30/17 06:15 Blood - Peripheral Anaerobic Blood Culture - Preliminary No growth in 1 day 08/30/17 06:28 Blood - Peripheral Aerobic Blood Culture - Preliminary No growth in 1 day 08/30/17 06:28 Blood - Peripheral Anaerobic Blood Culture - Preliminary No growth in 1 day 08/30/17 02:40 Blood - Peripheral Aerobic Blood Culture - Preliminary No growth in 1 day 08/30/17 02:40 Blood - Peripheral Anaerobic Blood Culture - Preliminary No growth in 1 day 08/30/17 02:35 Blood - Peripheral Aerobic Blood Culture - Preliminary No growth in 1 day 08/30/17 02:35 Blood - Peripheral Anaerobic Blood Culture - Preliminary No growth in 1 day Assessment and Plan - Plan Acute respiratory failure patient placed on BiPAP as he was dessating in 80s. Sepsis with (tachycardia, tachypnea, leukocytosis, source of infection possible pneumonia and UTI, sacral decubitus ulcers stage IV on admission) Stage 4 sacral decubitus ulcers Atrial fibrillation. Elevated BNP possible CHF unknown EF. Will do 2D ECHO Advanced Parkinson's, bedbound Small right pleural effusion 7 mm nodular density right upper lobe of lung seen by CT recommend follow-up noncontrast CT chest in 6 months History of 3 cm thrombus in the left atrium Cholelithiasis DNR/DNI CODE STATUS Obtain blood cultures, urine cultures, wound cultures, follow-up results Start IV antibiotics Zosyn and vancomycin Duo nebs, steroids, Lasix by 1 time IV 20 mg. Elevated BNP poss CHF with exacerbation. Will do 2D ECHO Monitor vital signs. Monitor kidney function Trend white blood cells ABG. Maintain oxygen saturation more than 94.Consult pulm if need. Restart home medications as appropriate Consult his neurology Dr Elliott Consult wound care Consult palliative care for goals of care and hospice as had discussions with hospice while at [facility] CODE STATUS: DNR/ DNI Discussed at length with his , nurse, case management CM is following for [facility].
[2017-08-31] MEDS: KCL 10 mEq/D5W/NaCl 0.45% Inj 1,000 ML IV.CONT SCH (18:58)
[2017-08-31] MEDS: MethylPREDNISolone Sod Succinate Inj 40 MG/ML Vial IV.PUSH SCH (22:07)
[2017-09-01] MEDS: Piperacil/Tazo 4.5 GM Premix 4.5 GM/100 ML BAG IV.SIG SCH (03:05)
[2017-09-01] MEDS ORDERED: Pharmacy Ordered Lab Info OTHER ONE (05:45)
[2017-09-01] MEDS: Heparin - SQ 10,000 UNITS/ML Vial SQ SCH ×2 (05:45→17:58)
[2017-09-01] MEDS: amLODIPine 5 MG Tablet PO SCH (11:50)
[2017-09-01] MEDS: Lisinopril 10 MG Tablet PO SCH (11:50)
[2017-09-01] MEDS: Senna/Docusate Sodium 8.6/50 MG Tablet PO SCH (11:50)
[2017-09-01] MEDS: MethylPREDNISolone Sod Succinate Inj 40 MG/ML Vial IV.PUSH SCH ×2 (11:52→23:06)
[2017-09-01] MEDS: Piperacil/Tazo 2.25 GM Premix 50 ML IV.SIG SCH ×3 (11:54→23:06)
[2017-09-01] MEDS ORDERED: Vancomycin Inj 1,000 MG in Sodium Chlor 0.9% Inj 250 ML IV.SIG ONE (13:00)
--- NOTE | 2017-09-01 13:13 | MB ---
cc: Balbina Wild MD DATE: 08/31/2017 REASON FOR CONSULTATION: Respiratory distress and pneumonia. 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 The patient apparently has become progressively obtunded and was in respiratory distress with the saturations running around 70% on nasal cannula at 2 liters and thus was sent to the emergency room. Upon arrival, the patient was septic, hypotensive, dehydrated, and was placed on a nonrebreather mask and was admitted. He has been started on IV antibiotic therapy including vancomycin and Zosyn with broad spectrum coverage and on IV fluids as well. Neurologic evaluation is being conducted. The patient apparently was being considered for hospice care recently. The patient is nonverbal and breathing rapidly and is on a nonrebreather mask, but the O2 saturations are 93%. Most of the information is obtained from the chart. PAST MEDICAL HISTORY: Includes history of CVA and atrial fibrillation, history of weakness of all extremities with contractures, history of dementia and gastroesophageal reflux with aspiration, history of hypertension and PTSD and a history of prostate cancer. He has had a valve replacement surgery for endocarditis. FAMILY HISTORY: Significant for CVA. HABITS: The patient does not smoke. Alcohol use is unknown. ALLERGIES: NO DRUG ALLERGIES ARE LISTED. MEDICATION LIST: Reviewed from the chart. REVIEW OF SYSTEMS: Unable to obtain. The patient is obtunded and is on a nonrebreather mask. PHYSICAL EXAMINATION: This emaciated looking elderly man is pale, mildly cyanotic and tachypneic. VITAL SIGNS: Blood pressures 150/100, pulse is 106, respirations 28, temperature 97.6. HEAD: Normocephalic. EYES: Pupils reactive. ENT: Tongue is dry. Nasal mucosa is crusted. NECK: Supple with no venous distention. No thyromegaly. CHEST: Decreased breath sounds at the bases. Crackles at the lung bases and diffuse wheezes bilaterally. HEART: The heart sounds were regular, S1 and S2. No murmur. ABDOMEN: Soft and protuberant without masses. No organomegaly. No tenderness. EXTREMITIES: Contractures of the extremities with decreased pulses and mild edema of the feet. The patient does not move his extremities well and he is unresponsive and encephalopathic. NEUROLOGIC: Cannot be conducted. IMPRESSIONS: 1. Bilateral pneumonia with hypoxemia. 2. Sepsis. 3. Aspiration recurrent. 4. History of cerebrovascular accident. 5. Multiple contractures of the extremities. 6. Dementia. 7. Urinary tract infection. 8. Decubitus ulcers. PLAN: The patient will be maintained on a nonrebreather mask. Nebulized DuoNeb solution added q.i.d. and we will continue with antibiotic coverage as ordered, which includes Zosyn and vancomycin. Cultures from bloody urine are pending and sputum if possible. We will also place him on Solu-Medrol 40 mg b.i.d. for 3 days and a followup chest x-ray to be obtained. EzPAP with a nebulizer solution to be given 4 times a day. The patient's prognosis is quite poor. Family has made him a DNR. We will get palliative care to be involved in the case. I will follow the case with you Dr. Lawanda Bustamante. Thank you for this consultation. VCarlo Wild MD VJD/DL , 12:49 PM , 01:12 PM
--- NOTE | 2017-09-01 14:32 | P.PNPAL ---
Reason for Visit Reason for visit: a. To assist with evaluation and management of symptoms including: weakness, dyspnea. b. To assist medical decision maker(s) with: better understanding of current medical conditions; weighing benefits/burdens of medical treatment options; making medical treatment decisions. Subjective Subjective/Interval History: Patient seen and examined in room. No family present. He does not respond to voice or exam. ID following. Wound care has made wound care recommendations. No new labs. Echocardiogram EF 45-50%. . Family/Friend Interactions: Awaiting call from to meet. Advance Directives Health Care Surrogate Name and Number: Dwight Bhatia, HCP/ : [phone] or [phone] Documented care wishes:: [place] DNR order signed on chart completed July. Significant change in goals:: has spoken with hospice twice in the past week, has not agreed to consideration of services. Awaiting meeting with to further clarify treatment goals. Objective Vital Signs: Vital Signs 08/31/17 20:00 08/31/17 20:24 09/01/17 00:00 Temperature 98.4 F 98 F Pulse Rate 112 H 103 H 92 H Respiratory Rate 18 18 18 Blood Pressure 101/55 L 122/63 Pulse Oximetry 95 98 92 L 09/01/17 04:00 09/01/17 07:44 09/01/17 11:48 Temperature 97.8 F Pulse Rate 84 77 109 H Respiratory Rate 18 16 16 Blood Pressure 117/78 Pulse Oximetry 100 99 Intake & Output 08/31/17 09/01/17 09/01/17 18:59 06:59 18:59 Intake Total 260 / 260 100 / 100 50 / 50 Output Total 300 / 300 250 / 250 Balance -40 / -40 -150 / -150 50 / 50 Intake: IV 200 / 200 100 / 100 50 / 50 Zosyn 2.25 GM Premix 50 ML @ 50 / 50 100 mls/hr IV.SIG Q6H MICHELLE Rx#: [id number] Zosyn 4.5 GM Premix 4.5 gm In 200 / 200 100 / 100 100 ml @ 200 mls/hr IV.SIG Q6H MICHELLE Rx#:[id number] Oral 60 / 60 Output: Urine 300 / 300 Urine Amount (Catheter) 250 / 250 Indwelling Temp Sensing 250 / 250 Catheter Other: Date of Last Bowel Movement 08/30/17 09/01/17 # Bowel Movements 2 # Incontinent Bowel Movements 1 Physical Exam: CONSTITUTIONAL/GENERAL: This is an elderly male, in no apparent distress. TUBES/LINES/DRAINS: Oxygen via rebreather mask, PIVs x 2 right, Herring, splint wrist, podus boots. SKIN: No jaundice, rashes, or lesions. Ecchymoses on upper extremities. Erythema right buttock.Skin temperature appropriate. Not diaphoretic. EYES: eyes closed. CARDIOVASCULAR: Regular rate and rhythm. RESPIRATORY/CHEST: Old well healed sternal scar. Scattered course breath sounds. GASTROINTESTINAL: Abdomen soft, nondistended. Bowel sounds present. GENITOURINARY: Without palpable bladder distension. Herring catheter in place. MUSCULOSKELETAL: Extremities without clubbing, cyanosis, or edema. No mottling or clubbing. NEUROLOGICAL: Asleep. PSYCHIATRIC: Asleep. Diagnostic Tests Laboratory: Laboratory Results - last 72 hr 08/30/17 08/30/17 08/30/17 02:40 02:40 02:40 WBC 23.4 H RBC 5.18 Hgb 13.9 Hct 42.8 MCV 82.5 MCH 26.7 L MCHC 32.4 RDW 15.3 Plt Count 371 MPV 7.4 Neut % (Auto) 89.5 H Lymph % (Auto) 4.4 L [place] % (Auto) 5.0 Eos % (Auto) 0.9 Baso % (Auto) 0.2 Neut # (Auto) 21.0 H Lymph # (Auto) 1.0 [place] # (Auto) 1.2 H Eos # (Auto) 0.2 Baso # (Auto) 0.1 WBC Differential . Differential Comment Auto diff final PT 20.2 H INR 2.0 APTT 53.1 H D-Dimer Quant (PE/DVT) 1.13 H Puncture Site Patient Temperature O2 Saturation ABG pH ABG pCO2 ABG pO2 ABG HCO3 ABG O2 Content ABG Base Excess ABG Methemoglobin Hemoglobin Carboxyhemoglobin O2 Delivery Device Liter Flow Inspired O2 Critical Value Sodium 144 Potassium 3.7 Chloride 108 H Carbon Dioxide 21.2 Anion Gap 15 BUN 7 Creatinine 0.99 Estimated GFR 73 L POC Glucose Random Glucose 95 Lactic Acid Calcium 8.5 Magnesium 1.8 Total Bilirubin 0.7 AST 20 ALT Less than 6 L Alkaline Phosphatase 81 Total Creatine Kinase 28 L Troponin I Less than 0.02 L B-Natriuretic Peptide Total Protein 5.5 L Albumin 1.7 L Urine Color Urine Clarity Urine pH Ur Specific [place] Urine Protein Urine Glucose (UA) Urine Ketones Urine Occult Blood Urine Nitrate Urine Bilirubin Urine Urobilinogen Ur Leukocyte Esterase Urine RBC Urine WBC Urine WBC Clumps Calcium Oxalate Crystal Urine Bacteria Urine Yeast Micro UA Comment Urine Culture Comments Stl C.difficile Tox PCR St C. diff Tox Epid 027 Random Vancomycin 08/30/17 08/30/17 08/30/17 02:40 03:10 04:10 WBC RBC Hgb Hct MCV MCH MCHC RDW Plt Count MPV Neut % (Auto) Lymph % (Auto) [place] % (Auto) Eos % (Auto) Baso % (Auto) Neut # (Auto) Lymph # (Auto) [place] # (Auto) Eos # (Auto) Baso # (Auto) WBC Differential Differential Comment PT INR APTT D-Dimer Quant (PE/DVT) Puncture Site Patient Temperature O2 Saturation ABG pH ABG pCO2 ABG pO2 ABG HCO3 ABG O2 Content ABG Base Excess ABG Methemoglobin Hemoglobin Carboxyhemoglobin O2 Delivery Device Liter Flow Inspired O2 Critical Value Sodium Potassium Chloride Carbon Dioxide Anion Gap BUN Creatinine Estimated GFR POC Glucose Random Glucose Lactic Acid Calcium Magnesium Total Bilirubin AST ALT Alkaline Phosphatase Total Creatine Kinase Troponin I B-Natriuretic Peptide 461 H Total Protein Albumin Urine Color [place] Urine Clarity Turbid H Urine pH 5.0 Ur Specific [place] 1.036 H Urine Protein 30 H Urine Glucose (UA) Negative Urine Ketones Trace Urine Occult Blood Large H Urine Nitrate Negative Urine Bilirubin Negative Urine Urobilinogen Less than 2 Ur Leukocyte Esterase Large H Urine RBC 75 H Urine WBC Urine WBC Clumps Occasional H Calcium Oxalate Crystal Occasional H Urine Bacteria Few H Urine Yeast Many H Micro UA Comment Cath-culture ind Urine Culture Comments Cath-cult indicated Stl C.difficile Tox PCR Negative St C. diff Tox Epid 027 Negative Random Vancomycin 08/30/17 08/30/17 08/30/17 06:20 11:00 17:27 WBC RBC Hgb Hct MCV MCH MCHC RDW Plt Count MPV Neut % (Auto) Lymph % (Auto) [place] % (Auto) Eos % (Auto) Baso % (Auto) Neut # (Auto) Lymph # (Auto) [place] # (Auto) Eos # (Auto) Baso # (Auto) WBC Differential Differential Comment PT INR APTT D-Dimer Quant (PE/DVT) Puncture Site Right brachial Patient Temperature 98.6 O2 Saturation 98 ABG pH 7.48 H ABG pCO2 27 L ABG pO2 237 H ABG HCO3 20 L ABG O2 Content 19.4 ABG Base Excess -3.3 L ABG Methemoglobin 0.8 Hemoglobin 13.7 Carboxyhemoglobin 0.8 O2 Delivery Device Partial rebreather Liter Flow 13.00 Inspired O2 80 Critical Value No Sodium Potassium Chloride Carbon Dioxide Anion Gap BUN Creatinine Estimated GFR POC Glucose 74 Random Glucose Lactic Acid 1.5 Calcium Magnesium Total Bilirubin AST ALT Alkaline Phosphatase Total Creatine Kinase Troponin I B-Natriuretic Peptide Total Protein Albumin Urine Color Urine Clarity Urine pH Ur Specific [place] Urine Protein Urine Glucose (UA) Urine Ketones Urine Occult Blood Urine Nitrate Urine Bilirubin Urine Urobilinogen Ur Leukocyte Esterase Urine RBC Urine WBC Urine WBC Clumps Calcium Oxalate Crystal Urine Bacteria Urine Yeast Micro UA Comment Urine Culture Comments Stl C.difficile Tox PCR St C. diff Tox Epid 027 Random Vancomycin 08/31/17 08/31/17 08/31/17 00:35 06:32 07:28 WBC 28.2 H RBC 5.01 Hgb 13.5 Hct 41.3 MCV 82.4 MCH 26.9 L MCHC 32.7 RDW 16.0 Plt Count 331 MPV 7.9 Neut % (Auto) 93.9 H Lymph % (Auto) 2.4 L [place] % (Auto) 2.0 Eos % (Auto) 1.5 Baso % (Auto) 0.2 Neut # (Auto) 26.5 H Lymph # (Auto) 0.7 L [place] # (Auto) 0.6 Eos # (Auto) 0.4 Baso # (Auto) 0.1 WBC Differential . Differential Comment Auto diff final PT INR APTT D-Dimer Quant (PE/DVT) Puncture Site Patient Temperature O2 Saturation ABG pH ABG pCO2 ABG pO2 ABG HCO3 ABG O2 Content ABG Base Excess ABG Methemoglobin Hemoglobin Carboxyhemoglobin O2 Delivery Device Liter Flow Inspired O2 Critical Value Sodium Potassium Chloride Carbon Dioxide Anion Gap BUN Creatinine Estimated GFR POC Glucose 78 75 Random Glucose Lactic Acid Calcium Magnesium Total Bilirubin AST ALT Alkaline Phosphatase Total Creatine Kinase Troponin I B-Natriuretic Peptide Total Protein Albumin Urine Color Urine Clarity Urine pH Ur Specific [place] Urine Protein Urine Glucose (UA) Urine Ketones Urine Occult Blood Urine Nitrate Urine Bilirubin Urine Urobilinogen Ur Leukocyte Esterase Urine RBC Urine WBC Urine WBC Clumps Calcium Oxalate Crystal Urine Bacteria Urine Yeast Micro UA Comment Urine Culture Comments Stl C.difficile Tox PCR St C. diff Tox Epid 027 Random Vancomycin 08/31/17 08/31/17 08/31/17 07:28 16:24 17:53 WBC RBC Hgb Hct MCV MCH MCHC RDW Plt Count MPV Neut % (Auto) Lymph % (Auto) [place] % (Auto) Eos % (Auto) Baso % (Auto) Neut # (Auto) Lymph # (Auto) [place] # (Auto) Eos # (Auto) Baso # (Auto) WBC Differential Differential Comment PT INR APTT D-Dimer Quant (PE/DVT) Puncture Site Patient Temperature O2 Saturation ABG pH ABG pCO2 ABG pO2 ABG HCO3 ABG O2 Content ABG Base Excess ABG Methemoglobin Hemoglobin Carboxyhemoglobin O2 Delivery Device Liter Flow Inspired O2 Critical Value Sodium 145 Potassium 3.2 L Chloride 108 H Carbon Dioxide 21.2 Anion Gap 16 H BUN 13 Creatinine 2.03 H Estimated GFR 32 L POC Glucose 69 124 H Random Glucose 83 Lactic Acid Calcium 8.5 Magnesium Total Bilirubin AST ALT Alkaline Phosphatase Total Creatine Kinase Troponin I B-Natriuretic Peptide Total Protein Albumin Urine Color Urine Clarity Urine pH Ur Specific [place] Urine Protein Urine Glucose (UA) Urine Ketones Urine Occult Blood Urine Nitrate Urine Bilirubin Urine Urobilinogen Ur Leukocyte Esterase Urine RBC Urine WBC Urine WBC Clumps Calcium Oxalate Crystal Urine Bacteria Urine Yeast Micro UA Comment Urine Culture Comments Stl C.difficile Tox PCR St C. diff Tox Epid 027 Random Vancomycin 09/01/17 09/01/17 09/01/17 01:28 05:38 08:32 WBC RBC Hgb Hct MCV MCH MCHC RDW Plt Count MPV Neut % (Auto) Lymph % (Auto) [place] % (Auto) Eos % (Auto) Baso % (Auto) Neut # (Auto) Lymph # (Auto) [place] # (Auto) Eos # (Auto) Baso # (Auto) WBC Differential Differential Comment PT INR APTT D-Dimer Quant (PE/DVT) Puncture Site Patient Temperature O2 Saturation ABG pH ABG pCO2 ABG pO2 ABG HCO3 ABG O2 Content ABG Base Excess ABG Methemoglobin Hemoglobin Carboxyhemoglobin O2 Delivery Device Liter Flow Inspired O2 Critical Value Sodium Potassium Chloride Carbon Dioxide Anion Gap BUN Creatinine Estimated GFR POC Glucose 121 H 124 H 152 H Random Glucose Lactic Acid Calcium Magnesium Total Bilirubin AST ALT Alkaline Phosphatase Total Creatine Kinase Troponin I B-Natriuretic Peptide Total Protein Albumin Urine Color Urine Clarity Urine pH Ur Specific [place] Urine Protein Urine Glucose (UA) Urine Ketones Urine Occult Blood Urine Nitrate Urine Bilirubin Urine Urobilinogen Ur Leukocyte Esterase Urine RBC Urine WBC Urine WBC Clumps Calcium Oxalate Crystal Urine Bacteria Urine Yeast Micro UA Comment Urine Culture Comments Stl C.difficile Tox PCR St C. diff Tox Epid 027 Random Vancomycin 09/01/17 09/01/17 10:00 12:35 WBC RBC Hgb Hct MCV MCH MCHC RDW Plt Count MPV Neut % (Auto) Lymph % (Auto) [place] % (Auto) Eos % (Auto) Baso % (Auto) Neut # (Auto) Lymph # (Auto) [place] # (Auto) Eos # (Auto) Baso # (Auto) WBC Differential Differential Comment PT INR APTT D-Dimer Quant (PE/DVT) Puncture Site Patient Temperature O2 Saturation ABG pH ABG pCO2 ABG pO2 ABG HCO3 ABG O2 Content ABG Base Excess ABG Methemoglobin Hemoglobin Carboxyhemoglobin O2 Delivery Device Liter Flow Inspired O2 Critical Value Sodium Potassium Chloride Carbon Dioxide Anion Gap BUN Creatinine Estimated GFR POC Glucose 186 H Random Glucose Lactic Acid Calcium Magnesium Total Bilirubin AST ALT Alkaline Phosphatase Total Creatine Kinase Troponin I B-Natriuretic Peptide Total Protein Albumin Urine Color Urine Clarity Urine pH Ur Specific [place] Urine Protein Urine Glucose (UA) Urine Ketones Urine Occult Blood Urine Nitrate Urine Bilirubin Urine Urobilinogen Ur Leukocyte Esterase Urine RBC Urine WBC Urine WBC Clumps Calcium Oxalate Crystal Urine Bacteria Urine Yeast Micro UA Comment Urine Culture Comments Stl C.difficile Tox PCR St C. diff Tox Epid 027 Random Vancomycin 15.8 Result Diagrams: 09/03/17 06:30 09/03/17 06:30 Microbiology: Microbiology 08/30/17 06:15 Aerobic Blood Culture - Preliminary Blood - Peripheral No growth in 2 days Anaerobic Blood Culture - Preliminary No growth in 2 days 08/30/17 06:28 Aerobic Blood Culture - Preliminary Blood - Peripheral No growth in 2 days Anaerobic Blood Culture - Preliminary No growth in 2 days 08/30/17 02:40 Aerobic Blood Culture - Preliminary Blood - Peripheral Yeast - ID to follow Anaerobic Blood Culture - Preliminary No growth in 2 days 08/30/17 02:35 Aerobic Blood Culture - Preliminary Blood - Peripheral No growth in 2 days Anaerobic Blood Culture - Preliminary No growth in 2 days 08/30/17 04:10 Urine Culture - Final Catheterized Urine Amelie albicans Imaging: Chest X-Ray 08/30/17 02:22 CONCLUSION: 1. Mild bilateral hazy pulmonary opacity, likely representing mild pulmonary edema. 2. Small right pleural effusion. Chest CTA 08/30/17 03:47 CONCLUSION: 1. No evidence of pulmonary embolus. 2. 3 cm filling defect in the left atrium suspicious for thrombus. 3. Moderate severity bilateral lower lobe pulmonary consolidation/atelectasis and small pleural effusions. 4. 7 mm nodular density right upper lobe. Recommend six-month follow-up noncontrast chest CT. 5. Cholelithiasis. Assessment and Plan Pertinent Non-Medical Issues: Psychosocial: . Retired from real estate. Spiritual: Unknown. Legal: Patient is not capacitated to make his own healthcare decisions, will not regain capacity. Cording to [place] statutes, healthcare proxy decision making falls to his spouse Dwight. Ethical issues impacting care: No known concerns at this time. Important Contacts: * Dwight Bhatia, HCP/: [phone] or [phone] Prognosis: Overall prognosis is poor given advanced dementia/Parkinson's disease. Hospice appropriate if goals are comfort oriented. Code Status: No Code DNR Plan: * Patient is not capacitated to make his own healthcare decisions, will not regain capacity. According to [place] statutes, healthcare proxy decision making falls to his spouse Dwight. * NO CODE * Spoke briefly with patient's via telephone on 08/31/17 she indicated that [facility] and request that we meet on 09/01/17. Palliative care is awaiting call from to clarify when she is able to meet for further clarification of treatment goals. * SYMPTOMS: Dyspnea: On oxygen via mask. Patient unresponsive. Does not appear in any distress. Will continue to monitor. * Palliative care will continue to follow throughout hospital course to assist with symptom management further clarification of medical treatment goals. Attestation Attestation: To help prompt me to consider important information that might be impacting today's encounter and assessment, information from prior notes written by myself or my colleagues may have been "brought forward" into today's note. My signature on this note, however, is an attestation that I personally performed the exam, history, and/or decision-making noted today, and, unless otherwise indicated, the interactions with patient, family, and staff as well as the review of records all occurred today. I also attest that the listed assessment and stated plan reflect my best clinical judgment today based on the combination of historical information, prior notes, and today's exam/ interactions. When time spent is documented, it refers only to time spent today by the signer, or if indicated, combined time spent today by collaborating physician/nurse practitioner.
--- NOTE | 2017-09-01 15:08 | ECHRPT ---
Indication: HEART FAILURE CONCLUSIONS Normal left ventricular size. Wall thickness is normal. The left ventricular systolic function is mildly reduced with an estimated ejection fraction in the range of 45- 50%. regional wall motion abnormalities. Mitral valve annuloplasty ring is present. Aortic valve sclerosis is present. Trace aortic valve regurgitation. There is mild tricuspid valve regurgitation. The estimated pulmonary arterial pressure is 50mmHg. BP: / HR: Rhythm: MEASUREMENTS (Male / Female) Normal Values Technical Quality: 2D ECHO LV Diastolic Diameter PLAX 4.6 cm 4.2 - 5.9 / 3.9 - 5.3 cm LV Systolic Diameter PLAX 3.8 cm IVS Diastolic Thickness 0.8 cm 0.6 - 1.0 / 0.6 - 0.9 cm LVPW Diastolic Thickness 0.8 cm 0.6 - 1.0 / 0.6 - 0.9 cm LV Relative Wall Thickness 0.4 RV Internal Dim ED PLAX 2.2 cm LA Systolic Diameter LX 4.6 cm 3.0 - 4.0 / 2.7 - 3.8 cm M-MODE Aortic Root Diameter MM 3.2 cm AV Cusp Separation MM 1.7 cm DOPPLER MV Peak Velocity 160.0 cm/s MV Peak Gradient 10.2 mmHg MV Mean Velocity 108.0 cm/s MV Mean Gradient 5.0 mmHg MV Area PHT 1.8 cm Mitral E Point Velocity 137.0 cm/s TR Peak Velocity 330.0 cm/s TR Peak Gradient 43.6 mmHg FINDINGS LEFT VENTRICLE Normal left ventricular size. Wall thickness is normal. The left ventricular systolic function is mildly reduced with an estimated ejection fraction in the range of 45- 50%. regional wall motion abnormalities. RIGHT VENTRICLE Normal right ventricular size and systolic function. LEFT ATRIUM The left atrial size is mildly enlarged RIGHT ATRIUM The right atrial size is normal. ATRIAL SEPTUM Normal atrial septal thickness without atrial level shunting by limited color doppler interrogation. AORTA The aortic root and proximal ascending aorta are normal in size on limited imaging. MITRAL VALVE Suspect bioprosthesis with normal function. AORTIC VALVE Aortic valve sclerosis is present. Trace aortic valve regurgitation. TRICUSPID VALVE There is trace tricuspid valve regurgitation. The estimated pulmonary arterial pressure is 50mmHg. PULMONARY VALVE The pulmonary valve is not well visualized. VESSELS The inferior vena cava is normal in size. PERICARDIUM No pericardial effusion. Estrada Acevedo MD (Electronically Signed) Final Date:01 September 2017 15:08
[2017-09-01] MEDS: Collagenase Oint 30 GM Tube TOPICAL SCH (16:46)
[2017-09-01] MEDS: KCL 10 mEq/D5W/NaCl 0.45% Inj 1,000 ML IV.CONT SCH (16:52)
--- NOTE | 2017-09-01 16:56 | P.PN ---
Physical Exam Vital signs: Vital Signs 08/31/17 20:00 08/31/17 20:24 09/01/17 00:00 Temperature 98.4 F 98 F Pulse Rate 112 H 103 H 92 H Respiratory Rate 18 Blood Pressure 101/55 L 122/63 Pulse Oximetry 95 98 92 L 09/01/17 04:00 09/01/17 07:44 09/01/17 11:48 Temperature 97.8 F Pulse Rate 84 77 109 H Respiratory Rate 18 16 16 Blood Pressure 117/78 Pulse Oximetry 100 99 09/01/17 16:00 Temperature 97.9 F Pulse Rate 83 Respiratory Rate 20 Blood Pressure 109/67 Pulse Oximetry 93 L Intake & Output 08/31/17 09/01/17 09/01/17 18:59 06:59 18:59 Intake Total 260 / 260 100 / 100 50 / 50 Output Total 300 / 300 250 / 250 Balance -40 / -40 -150 / -150 50 / 50 Intake: IV 200 / 200 100 / 100 50 / 50 Zosyn 2.25 GM Premix 50 ML @ 50 / 50 100 mls/hr IV.SIG Q6H MICHELLE Rx#: [id number] Zosyn 4.5 GM Premix 4.5 gm In 200 / 200 100 / 100 100 ml @ 200 mls/hr IV.SIG Q6H MICHELLE Rx#:[id number] Oral 60 / 60 Output: Urine 300 / 300 Urine Amount (Catheter) 250 / 250 Indwelling Temp Sensing 250 / 250 Catheter Other: Date of Last Bowel Movement 08/30/17 09/01/17 # Bowel Movements 2 # Incontinent Bowel Movements 1 Narrative: Subjective: Patient in bed with severe Parkinsonism and not able to talk or follow any commands. Flat affects and not engaging. He is on rebreather mask at tis time, sattign well, he doesn't appear in acute distress. Physical exam: GENERAL: Elderly male, cachectic, chronically ill appearance with shortness of breath saturating well while on nonrebreather mask at this time. Nonverbal. SKIN: Warm and dry. Stage IV sacral decubitus ulcers present on admission. CARDIOVASCULAR: Regular rate and rhythm. RESPIRATORY: Bronchial, course respiratory sounds. No wheezing. GASTROINTESTINAL: Abdomen soft, non-tender, nondistended. Hepatic and splenic margins not palpable. MUSCULOSKELETAL: Extremities without clubbing, cyanosis, or edema. No obvious deformities. NEUROLOGICAL: Awake and alert. No obvious cranial nerve deficits. Nonverbal doesn't follow commands. Assessment and Plan Acute respiratory failure patient placed on BiPAP as he was dessating in 80s. Sepsis with (tachycardia, tachypnea, leukocytosis, source of infection possible pneumonia and UTI, sacral decubitus ulcers stage IV on admission) Stage 4 sacral decubitus ulcers, present on admission Atrial fibrillation. Elevated BNP possible CHF unknown EF. Will do 2D ECHO Advanced Parkinson's, bedbound Small right pleural effusion 7 mm nodular density right upper lobe of lung seen by CT recommend follow-up noncontrast CT chest in 6 months History of 3 cm thrombus in the left atrium Cholelithiasis DNR/DNI CODE STATUS Obtain blood cultures, urine cultures, wound cultures, follow-up results Start IV antibiotics Zosyn and vancomycin Duo nebs, steroids, Lasix by 1 time IV 20 mg. Elevated BNP poss CHF with exacerbation. Will do 2D ECHO Monitor vital signs. Monitor kidney function Trend white blood cells ABG. Maintain oxygen saturation more than 94.Consult pulm if need. Restart home medications as appropriate Consult his neurology Dr Elliott Consult wound care Consult palliative care for goals of care and hospice as had discussions with hospice while at [facility]. Appreciate recommendations. wants hospice to follow but did not decide for hospice yet Continue recommendations for wound care per wound care recommendations. CODE STATUS: DNR/ DNI Discussed with the nurse, case management, wound care nurse Deborah, family at bedside . CM is following for possible transfer to [facility] as per request. However [facility] will not take patient. Discussed with the at bedside and she is not happy with wound care and with wound recommendations. I spoke with Deborah from wound care to reevaluate patient. Also discussed with the regarding goals of care and she is not considering hospice at this time. - Urinary Catheter Management Indwelling Temp Sensing Catheter Cath placed during this visit: no Reason for continuing: Chronic Urinary Retention Results - Labs CBC & Chem 7: 08/31/17 07:28 08/31/17 07:28 Laboratory Results - last 24 hr 08/31/17 09/01/17 09/01/17 17:53 01:28 05:38 POC Glucose 124 H 121 H 124 H Random Vancomycin 09/01/17 09/01/17 09/01/17 08:32 10:00 12:35 POC Glucose 152 H 186 H Random Vancomycin 15.8 Microbiology 08/30/17 06:15 Blood - Peripheral Aerobic Blood Culture - Preliminary No growth in 2 days 08/30/17 06:15 Blood - Peripheral Anaerobic Blood Culture - Preliminary No growth in 2 days 08/30/17 06:28 Blood - Peripheral Aerobic Blood Culture - Preliminary No growth in 2 days 08/30/17 06:28 Blood - Peripheral Anaerobic Blood Culture - Preliminary No growth in 2 days 08/30/17 02:40 Blood - Peripheral Aerobic Blood Culture - Preliminary Yeast - ID to follow 08/30/17 02:40 Blood - Peripheral Anaerobic Blood Culture - Preliminary No growth in 2 days 08/30/17 02:35 Blood - Peripheral Aerobic Blood Culture - Preliminary No growth in 2 days 08/30/17 02:35 Blood - Peripheral Anaerobic Blood Culture - Preliminary No growth in 2 days 08/30/17 04:10 Catheterized Urine Urine Culture - Final Amelie albicans Assessment and Plan - Plan Acute respiratory failure patient placed on BiPAP as he was dessating in 80s. Sepsis with (tachycardia, tachypnea, leukocytosis, source of infection possible pneumonia and UTI, sacral decubitus ulcers stage IV on admission) Stage 4 sacral decubitus ulcers Atrial fibrillation. Elevated BNP possible CHF unknown EF. Will do 2D ECHO Advanced Parkinson's, bedbound Small right pleural effusion 7 mm nodular density right upper lobe of lung seen by CT recommend follow-up noncontrast CT chest in 6 months History of 3 cm thrombus in the left atrium Cholelithiasis DNR/DNI CODE STATUS Obtain blood cultures, urine cultures, wound cultures, follow-up results Start IV antibiotics Zosyn and vancomycin Duo nebs, steroids, Lasix by 1 time IV 20 mg. Elevated BNP poss CHF with exacerbation. Will do 2D ECHO Monitor vital signs. Monitor kidney function Trend white blood cells ABG. Maintain oxygen saturation more than 94.Consult pulm if need. Restart home medications as appropriate Consult his neurology Dr Elliott Consult wound care Consult palliative care for goals of care and hospice as had discussions with hospice while at [facility] CODE STATUS: DNR/ DNI Discussed at length with his , nurse, case management CM is following for possible transfer to [facility] as per request.
--- NOTE | 2017-09-01 17:05 | P.CONID ---
History of Present Illness Service: Infectious disease Consult date: 09/01/17 Requesting Physician: Lawanda Bustamante Reason for Consult: Evaluate patient with William sepsis Primary Care Provider: Herminio Mendez MD Family Provider: Herminio Mendez MD Chief Complaint: sob, sent for evaluation History of Present Illness: Patient seen and examined. Records reviewed. Patient is a 76-year-old male, resides in a detention, with advanced Parkinson's disease, and bedbound, brought into the hospital for further evaluation of shortness of breath and desaturation. There was no mention of any problem with congestion or cough. There is no mention of any fever or chills, or any nausea or vomiting. Since admission the patient has not been febrile. His WBC was 23.4, and it is up to 28.2. Chest x-ray showed pulmonary edema. CT of the chest did not show any pulmonary embolism, there is filling defect in the left atrium suggestive of thrombus, and there is also bilateral lower lobe consolidation/atelectasis and bilateral small effusion as well as a right upper lung nodule. His urinalysis did show significant pyuria. Patient was admitted for sepsis and UTI, and the blood culture done in the emergency room now is growing William. Patient had a Zhang catheter placed on admission. His creatinine went up to 2.03 today. Infectious disease consultation has been requested to assist with evaluation of sepsis, and blood culture with William. Review of Systems unobtainable due to mental status PMFSH - History History Provided By: Family Member (I spoke with his ), Medical Record ( review of [facility] review note from recent admission) - Medical History Medical History: Medical History (Last Updated 09/01/17 @ 16:53 by Gregoria Molina MD) Atrial fibrillation CVA (cerebral vascular accident) Dementia Edema Endocarditis of mitral valve GERD (gastroesophageal reflux disease) Hydrocele in adult Hypertension Hypokalemia PTSD (post-traumatic stress disorder) Parkinson disease Pressure ulcer Prostate cancer - Surgical History Surgical History: Surgical History (Last Updated 09/01/17 @ 16:55 by Gregoria Molina MD) H/O mitral valve replacement with tissue graft History of appendectomy History of cryosurgery History of tonsillectomy - Family History Family History: Family History (Last Updated 08/30/17 @ 15:47 by Lawanda Bustamante MD) Mother Stroke Father Prostate CA - Tobacco History Smoking Status: Former smoker Tobacco Type: Cigarettes Smoking End Date: Quit in 1981. - Alcohol History How Often Do You Have a Drink Containing Alcohol: Unable to Obtain (Old EMR indicates prior social alcohol use.) - Substance Use History Substance History: No History of Abuse - Travel History Recent Travel in the [place] Within the Last 8 Weeks: No Recent Travel Out of the Country Within the Last 8 Weeks: No - Immunization History Tetanus Immunization: Unable to Assess Medications and Allergies Active Medications: Active Medications Acetaminophen (Tylenol) 650 mg PO Q4H PRN PRN Reason: Temp > 100.4 Al Hydroxide/Mg Hydroxide (Milk Of [place] Liq) 30 ml PO Q12H PRN PRN Reason: Mild Constipation Albuterol (Duoneb Neb (Leslie)) 1 ampul NEB Q6HR WHILE AWAKE NEB [facility] Last Admin: 09/01/17 11:45 Dose: 1 ampul Albuterol (Duoneb Neb (Prn)) 1 ampul NEB Q2HR NEB PRN PRN Reason: SHORTNESS OF BREATH/WHEEZING Amlodipine Besylate (Norvasc) 5 mg PO DAILY [facility] Last Admin: 09/01/17 11:50 Dose: Not Given Aspirin (Ecotrin) 81 mg PO DAILY [facility] Last Admin: 09/01/17 11:50 Dose: Not Given Bisacodyl (Dulcolax Supp) 10 mg RECTAL DAILY PRN PRN Reason: SEVERE CONSITIPATION Carbidopa/Levodopa (Sinemet 25/100 Mg) 1 tab PO TID [facility] Last Admin: 09/01/17 12:43 Dose: Not Given Collagenase (Santyl Oint) 1 applicatio TOPICAL DAILY [facility] Dextrose (D50w Vial) 50 ml IV.PUSH UNSCH PRN PRN Reason: PER HYPOGLYCEMIA PROTOCOL Last Admin: 08/31/17 16:28 Dose: 50 ml Glucagon (Glucagon Inj) 1 mg OTHER PRN PRN PRN Reason: for Hypoglycemia Protocol Heparin Sodium (Porcine) (Heparin Inj) 5,000 units SQ Q12H [facility] Last Admin: 09/01/17 05:45 Dose: 5,000 units Pharmacy Profile Note (Vancomycin Consult Pharmacy) 0 mls @ 0 mls/hr OTHER UNSCH [facility] Potassium Chloride/Dextrose/Sod Cl (D5w/1/2ns + Kcl 10 Meq Inj) 1,000 mls @ 45 mls/hr IV.CONT .[id number] [facility] Last Admin: 08/31/17 18:58 Dose: 45 mls/hr Piperacillin/Tazobactam/Dextrose (Zosyn 2.25 Gm Premix) 50 mls @ 100 mls/hr IV.SIG Q6H [facility] Last Infusion: 09/01/17 12:30 Dose: Infused Lactulose (Lactulose Liq) 30 ml PO DAILY PRN PRN Reason: SEVERE CONSITIPATION Lisinopril (Prinivil) 10 mg PO DAILY [facility] Last Admin: 09/01/17 11:50 Dose: Not Given Memantine (Namenda) 0 mg PO DAILY [facility] Last Admin: 09/01/17 11:50 Dose: Not Given Methylprednisolone Sodium Succinate (Solumedrol Inj) 40 mg IV.PUSH Q12HR [facility] Last Admin: 09/01/17 11:52 Dose: 40 mg Ondansetron HCl (Zofran Inj) 4 mg IV.PUSH Q6H PRN PRN Reason: NAUSEA OR VOMITING Pyridoxine HCl (Vitamin B-6) 50 mg PO DAILY [facility] Last Admin: 09/01/17 11:51 Dose: Not Given Senna/Docusate Sodium (Marisa-Colace) 1 tab PO BID [facility] Last Admin: 09/01/17 11:50 Dose: Not Given Sennosides (Senokot) 17.2 mg PO Q12H PRN PRN Reason: Moderate Constipation Vitamin D (Vitamin D3) 1,000 unit PO DAILY [facility] Last Admin: 09/01/17 11:51 Dose: Not Given Allergies Allergy/AdvReac Type Severity Reaction Status Date / Time No Known Allergies Allergy Mild Uncoded 08/27/05 01:39 Exam Vital signs: Vital Signs 08/31/17 20:00 08/31/17 20:24 09/01/17 00:00 Temperature 98.4 F 98 F Pulse Rate 112 H 103 H 92 H Respiratory Rate 18 18 18 Blood Pressure 101/55 L 122/63 Pulse Oximetry 95 98 92 L 09/01/17 04:00 09/01/17 07:44 09/01/17 11:48 Temperature 97.8 F Pulse Rate 84 77 109 H Respiratory Rate 18 16 16 Blood Pressure 117/78 Pulse Oximetry 100 99 09/01/17 16:00 Temperature 97.9 F Pulse Rate 83 Respiratory Rate 20 Blood Pressure 109/67 Pulse Oximetry 93 L Intake & Output 08/31/17 09/01/17 09/01/17 18:59 06:59 18:59 Intake Total 260 / 260 100 / 100 50 / 50 Output Total 300 / 300 250 / 250 Balance -40 / -40 -150 / -150 50 / 50 Intake: IV 200 / 200 100 / 100 50 / 50 Zosyn 2.25 GM Premix 50 ML @ 50 / 50 100 mls/hr IV.SIG Q6H [facility] Rx#: [id number] Zosyn 4.5 GM Premix 4.5 gm In 200 / 200 100 / 100 100 ml @ 200 mls/hr IV.SIG Q6H [facility] Rx#:[id number] Oral 60 / 60 Output: Urine 300 / 300 Urine Amount (Catheter) 250 / 250 Indwelling Temp Sensing 250 / 250 Catheter Other: Date of Last Bowel Movement 08/30/17 09/01/17 # Bowel Movements 2 # Incontinent Bowel Movements 1 Narrative: Physical Examination GENERAL: Patient is a well-nourished, well-developed male, awake, not interactive, body very stiff, not in distress SKIN: Cool and dry, no generalized rash, no ecchymoses and no evidence of embolic lesions. HEAD: Atraumatic. Normocephalic. No temporal wasting, or tenderness. EYES: [place] conjunctiva. No petechia or hemorrhage. Pupils equal, round and reactive to light. No scleral icterus. No injection or drainage. EARS, NOSE AND THROAT: Nose without bleeding or purulent nasal discharge. Mucous membranes pink and moist. Limited exam NECK: Neck very stiff and he keeps it in slightly flexed position CARDIOVASCULAR: Regular rate and rhythm. Soft heart sounds RESPIRATORY: Scattered rhonchi, decreased at bases ABDOMEN: Soft, not distended, no reaction to deep palpation, not guarding. Bowel sounds present and normoactive. EXTREMITIES: No clubbing, cyanosis. Has mild pedal edema. Very rigid extremities, and BLE flexure contractures NEUROLOGICAL: Awake, not interacting PSYCHIATRIC: Unable to assess BACK: Has stage 4 decubitus in sacrum with min slough LINE: No evidence of infection : Zhang in place, with some sediment, has some mild urethral discharge Results - Labs CBC & Chem 7: 09/02/17 06:00 09/02/17 06:00 Labs: Laboratory Results - last 24 hr 08/31/17 09/01/17 09/01/17 17:53 01:28 05:38 POC Glucose 124 H 121 H 124 H Random Vancomycin 09/01/17 09/01/17 09/01/17 08:32 10:00 12:35 POC Glucose 152 H 186 H Random Vancomycin 15.8 - Imaging Chest X-Ray 08/30/17 02:22 CONCLUSION: 1. Mild bilateral hazy pulmonary opacity, likely representing mild pulmonary edema. 2. Small right pleural effusion. Chest CTA 08/30/17 03:47 CONCLUSION: 1. No evidence of pulmonary embolus. 2. 3 cm filling defect in the left atrium suspicious for thrombus. 3. Moderate severity bilateral lower lobe pulmonary consolidation/atelectasis and small pleural effusions. 4. 7 mm nodular density right upper lobe. Recommend six-month follow-up noncontrast chest CT. 5. Cholelithiasis. Assessment and Plan - Plan Impression William sepsis, source, likely - concern with other source S/P MVR with bovine tissue 2005 for Strep sanguis IE Severe Parkinson's. bedbound Stage 4 decubitus, looks pretty clean Acute renal failure, etiology? - ?due to IV contrast - ?due to sepsis - ?obstruction, has zhnag placed here Hx prostate CA, S/P cryoablation Leukocytosis, worsening Recommendation Start Flagyl and Micafungin until william has been identified Renal US to check for obstruction Continue Zosyn Stop Vancomycin Check urine for eos Repeat UA Follow C/S Monitor progress Palliative medicine following to determine goals of care If more (+) BC, will do echo and prob ask ophtha consult Will determine course of Rx once wokr-up completed I will follow along with you Thank you for this consultation D/W RN
--- NOTE | 2017-09-01 17:55 | P.PN ---
Subjective Interval history: Poorly responsive and on a NRB mask. On antibiotics and nebs. On IV fluids. Physical Exam Vital signs: Vital Signs 08/31/17 20:00 08/31/17 20:24 09/01/17 00:00 Temperature 98.4 F 98 F Pulse Rate 112 H 103 H 92 H Respiratory Rate 18 18 18 Blood Pressure 101/55 L 122/63 Pulse Oximetry 95 98 92 L 09/01/17 04:00 09/01/17 07:44 09/01/17 11:48 Temperature 97.8 F Pulse Rate 84 77 109 H Respiratory Rate 18 16 16 Blood Pressure 117/78 Pulse Oximetry 100 99 09/01/17 16:00 Temperature 97.9 F Pulse Rate 83 Respiratory Rate 20 Blood Pressure 109/67 Pulse Oximetry 93 L Intake & Output 08/31/17 09/01/17 09/01/17 18:59 06:59 18:59 Intake Total 260 / 260 100 / 100 1050 / 1050 Output Total 300 / 300 250 / 250 Balance -40 / -40 -150 / -150 1050 / 1050 Intake: IV 200 / 200 100 / 100 1050 / 1050 D5W/1/2NS + KCL 10 mEq Inj 1, 1000 / 1000 000 ML @ 45 mls/hr IV.CONT . [id number] [facility] Rx#:[id number] Zosyn 2.25 GM Premix 50 ML @ 50 / 50 100 mls/hr IV.SIG Q6H [facility] Rx#: [id number] Zosyn 4.5 GM Premix 4.5 gm In 200 / 200 100 / 100 100 ml @ 200 mls/hr IV.SIG Q6H [facility] Rx#:[id number] Oral 60 / 60 Output: Urine 300 / 300 Urine Amount (Catheter) 250 / 250 Indwelling Temp Sensing 250 / 250 Catheter Other: Date of Last Bowel Movement 08/30/17 09/01/17 # Bowel Movements 2 # Incontinent Bowel Movements 1 - Constitutional chronically ill appearing - Routine HEENT Exam Head: Present: normocephalic Eye: Present: PERRL, conjunctivae pink ENT: Present: mucous membranes moist, external ear normal - Routine Neck Exam Present: supple, trachea midline - Routine Respiratory Exam Present: accessory muscle use, wheezes, crackles, distant breath sounds, diminished air movement - Routine Cardiovascular Exam Present: S1, S2, irregular rhythm - Routine Abdominal Exam Present: soft, normoactive bowel sounds - Routine Extremities Exam Present: joint swelling, extremity cold to touch - Routine Skin Exam Present: mottling, wounds - Routine Neurological Exam Present: motor deficit, altered mental status, tremors - Detailed Neurological Exam: Coma Scale Eye Opening: None - Urinary Catheter Management Indwelling Temp Sensing Catheter Cath placed during this visit: no Reason for continuing: Chronic Urinary Retention Results - Labs CBC & Chem 7: 08/31/17 07:28 08/31/17 07:28 Laboratory Results - last 24 hr 08/31/17 09/01/17 09/01/17 17:53 01:28 05:38 POC Glucose 124 H 121 H 124 H Random Vancomycin 09/01/17 09/01/17 09/01/17 08:32 10:00 12:35 POC Glucose 152 H 186 H Random Vancomycin 15.8 09/01/17 17:12 POC Glucose 138 H Random Vancomycin Microbiology 08/30/17 06:15 Blood - Peripheral Aerobic Blood Culture - Preliminary No growth in 2 days 08/30/17 06:15 Blood - Peripheral Anaerobic Blood Culture - Preliminary No growth in 2 days 08/30/17 06:28 Blood - Peripheral Aerobic Blood Culture - Preliminary No growth in 2 days 08/30/17 06:28 Blood - Peripheral Anaerobic Blood Culture - Preliminary No growth in 2 days 08/30/17 02:40 Blood - Peripheral Aerobic Blood Culture - Preliminary Yeast - ID to follow 08/30/17 02:40 Blood - Peripheral Anaerobic Blood Culture - Preliminary No growth in 2 days 08/30/17 02:35 Blood - Peripheral Aerobic Blood Culture - Preliminary No growth in 2 days 08/30/17 02:35 Blood - Peripheral Anaerobic Blood Culture - Preliminary No growth in 2 days 08/30/17 04:10 Catheterized Urine Urine Culture - Final Amelie albicans Assessment and Plan - Assessment (1) Respiratory failure with hypercapnia Code(s): J96.92 - Respiratory failure, unspecified with hypercapnia Status: Acute (2) Respiratory failure with hypoxia and hypercapnia Code(s): J96.91 - Respiratory failure, unspecified with hypoxia; J96.92 - Respiratory failure, unspecified with hypercapnia Status: Acute (3) Pneumonia due to aerobic bacteria Code(s): J15.6 - Pneumonia due to other Gram-negative bacteria Status: Acute (4) Dementia Code(s): F03.90 - Unspecified dementia without behavioral disturbance Status: Acute (5) Decubitus skin ulcer Code(s): L89.90 - Pressure ulcer of unspecified site, unspecified stage Status : Acute (6) Pneumonia Code(s): J18.9 - Pneumonia, unspecified organism Status: Acute (7) Bacterial UTI Code(s): N39.0 - Urinary tract infection, site not specified; A49.9 - Bacterial infection, unspecified Status: Acute (8) Hx of prosthetic heart valve Code(s): Z95.2 - Presence of prosthetic heart valve Status: Acute - Plan 1. Cont antibiotics / Zosyn and Vancomycin 2. Duoneb nebs qid. 3. Add BIPAP at 15/6, FIO2 50 %. 4. Solumedrol 40 mg BID 5. Continue IV fluids for hydration 6. CBC,BMP ,CXR in am 7. DNR Status. (6) Pneumonia Qualifiers: Pneumonia type: due to unspecified organism Laterality: unspecified laterality Lung location: unspecified part of lung Qualified Code(s): J18.9 - Pneumonia, unspecified organism
[2017-09-02 04:49] LABS: Bacteria,Urine Occasional /hpf; Bilirubin,Urine Negative (Negative); Clarity,Urine Cloudy (Clear); Color,Urine Yellow (Yellw/Straw); Glucose,Urine (UA) Negative (Negative); Leukocyte Esterase,Urine Large (Negative); Mucus,Urine Few /lpf (Occasional); Nitrite,Urine Negative (Negative); Specific Gravity,Urine 1.031 (1.002-1.035)
[2017-09-02] MEDS: Senna/Docusate Sodium 8.6/50 MG Tablet PO SCH ×3 (05:37→21:04)
[2017-09-02] MEDS: Heparin - SQ 10,000 UNITS/ML Vial SQ SCH ×2 (05:38→18:37)
[2017-09-02] MEDS: Piperacil/Tazo 2.25 GM Premix 50 ML IV.SIG SCH ×4 (05:39→21:04)
[2017-09-02 06:34] LABS: Hematocrit 32.9 % (39.0-51.0); Hemoglobin 11.1 gm/dL (13.0-17.0); Lymph # (Auto) 0.3 th/mm3 (1.0-4.8); Lymph % (Auto) 1.6 % (9.0-44.0); Mean Corpuscular HGB Conc 33.7 % (32.0-36.0); Mean Corpuscular Hemoglobin 27.6 pg (27.0-34.0); Mean Corpuscular Volume 81.9 fL (80.0-100.0); Mean Platelet Volume 7.3 fL (7.0-11.0); Mono # (Auto) 0.4 th/mm3 (0.0-0.9); Mono % (Auto) 1.9 % (0.0-8.0); Neut # (Auto) 19.5 th/mm3 (1.8-7.7); Neut % (Auto) 96.5 % (16.0-70.0); Platelet Count 309 th/mm3 (150-450); Red Blood Count 4.02 mil/mm3 (4.50-5.90); Red Cell Distribution Width 15.6 % (11.6-17.2); White Blood Count 20.3 th/mm3 (4.0-11.0)
[2017-09-02 07:13] LABS: Calcium 7.9 mg/dL (8.5-10.1); Carbon Dioxide 25.8 meq/L (21.0-32.0)
[2017-09-02 07:37] LABS: Potassium 2.9 meq/L (3.5-5.1)
[2017-09-02] MEDS: MethylPREDNISolone Sod Succinate Inj 40 MG/ML Vial IV.PUSH SCH ×2 (09:03→21:04)
[2017-09-02] MEDS: amLODIPine 5 MG Tablet PO SCH (09:07)
[2017-09-02] MEDS: Collagenase Oint 30 GM Tube TOPICAL SCH (09:08)
[2017-09-02] MEDS: Lisinopril 10 MG Tablet PO SCH (09:08)
[2017-09-02] MEDS: Potassium Chlor 20 mEq Premix 20 MEQ/100 ML PIGGYBACK IV.SIG SCH ×4 (09:14→16:14)
--- NOTE | 2017-09-02 11:59 | US ---
EXAM DATE: 09/02/2017 11:55 AM EDT AGE/SEX: 76 years / Male INDICATIONS: Increased lab values. CLINICAL DATA: This is the patient's initial encounter. Patient reports that signs and symptoms have been present for 1 day and indicates a pain score of Nonresponsive. MEDICAL/SURGICAL HISTORY: Cerebrovascular disease. Carcinoma, prostatic. Hypertension. GERD. Atrial fibrillation. Dementia. Parkinson Disease. Pressure ulcer. Endocarditis of mitral valve. Appendectomy. Tonsillectomy. Cryosurgery. Mitral Valve replacement with tissue graft. COMPARISON: No prior exams available for comparison. MEASUREMENTS: Right Kidney:__11.9 x 5.7 x 6.6 cm Left Kidney:__10.1 x 5.0 x 5.7 cm FINDINGS: Right Kidney: Increased echotexture. No mass or hydronephrosis. Left Kidney: Increased echotexture. No mass or hydronephrosis. Bladder: There is a 2 cm stone in the urinary bladder. Other: Small bilateral pleural effusions are identified. CONCLUSION: Echogenic kidneys bilaterally compatible with medical renal disease. Bladder stone Electronically signed by: Ryan Bautista MD 09/02/2017 11:57 AM EDT
[2017-09-02] MEDS: KCL 10 mEq/D5W/NaCl 0.45% Inj 1,000 ML IV.CONT SCH (14:04)
--- NOTE | 2017-09-02 14:23 | P.PNID ---
Subjective Remarks: Patient is a 76-year-old male, resides in a intermediate, with advanced Parkinson's disease, and bedbound, brought into the hospital for further evaluation of shortness of breath and desaturation. There was no mention of any problem with congestion or cough. There is no mention of any fever or chills, or any nausea or vomiting. Since admission the patient has not been febrile. His WBC was 23.4, and it is up to 28.2. Chest x-ray showed pulmonary edema. CT of the chest did not show any pulmonary embolism, there is filling defect in the left atrium suggestive of thrombus, and there is also bilateral lower lobe consolidation/atelectasis and bilateral small effusion as well as a right upper lung nodule. His urinalysis did show significant pyuria. Patient was admitted for sepsis and UTI, and the blood culture done in the emergency room now is growing Amelie. Patient had a Zhang catheter placed on admission. His creatinine went up to 2.03 today. Infectious disease consultation has been requested to assist with evaluation of sepsis, and blood culture with Amelie. Notes reviewed Temps ok No interaction On PNRB, sats 99% One BC with yeast No new (+) BC UC with Amelie albicans Renal US no hydro WBC down to 20.3 Creatinine better, down to 1.56 from 2+ Antibiotics: Diflucan Micafungin Lines: No evidence of infection Past Medical History: Atrial fibrillation CVA (cerebral vascular accident) Dementia Edema Endocarditis of mitral valve GERD (gastroesophageal reflux disease) Hydrocele in adult Hypertension Hypokalemia PTSD (post-traumatic stress disorder) Parkinson disease Pressure ulcer Prostate cancer H/O mitral valve replacement with tissue graft History of appendectomy History of cryosurgery History of tonsillectomy Allergies/Adverse Reactions: Allergies No Known Allergies Allergy (Mild, Uncoded 08/27/05 01:39) Objective Vital Signs 09/01/17 16:00 09/01/17 19:19 09/01/17 20:00 Temperature 97.9 F 98 F Pulse Rate 83 76 92 H Respiratory Rate 20 12 19 Blood Pressure 109/67 135/79 Pulse Oximetry 93 L 97 97 09/01/17 20:20 09/01/17 23:59 09/02/17 00:00 Temperature 97.6 F Pulse Rate 71 76 Respiratory Rate 19 Blood Pressure 136/62 Pulse Oximetry 97 97 09/02/17 04:00 09/02/17 04:24 09/02/17 08:00 Temperature 97.5 F L 98.4 F Pulse Rate 77 73 74 Respiratory Rate 19 20 Blood Pressure 135/67 127/69 Pulse Oximetry 97 09/02/17 08:18 09/02/17 11:59 09/02/17 12:00 Temperature 98.2 F Pulse Rate 73 71 72 Respiratory Rate 19 18 18 Blood Pressure 142/78 H Pulse Oximetry 96 99 Intake & Output 09/01/17 09/02/17 09/02/17 18:59 06:59 18:59 Intake Total 1050 / 1050 550 / 550 1250 / 1250 Output Total 800 / 800 Balance 1050 / 1050 -250 / -250 1250 / 1250 Weight 68.9 kg Intake: IV 1050 / 1050 450 / 450 1250 / 1250 D5W/1/2NS + KCL 10 mEq Inj 1, 1000 / 1000 1000 / 1000 000 ML @ 45 mls/hr IV.CONT . [id number] [facility] Rx#:[id number] Diflucan 400 mg Premix Bag 200 200 / 200 ML @ 100 mls/hr IV.SIG Q24H [facility] Rx#:[id number] Mycamine Inj 100 MG In NS Inj 100 / 100 100 ML @ 100 mls/hr IV.SIG Q24H [facility] Rx#:[id number] Zosyn 2.25 GM Premix 50 ML @ 50 / 50 150 / 150 50 / 50 100 mls/hr IV.SIG Q6H [facility] Rx#: [id number] KCl 20 mEq Premix Inj 20 meq In 200 / 200 100 ml @ 50 mls/hr IV.SIG Q2H [facility] Rx#:[id number] Oral 100 / 100 Output: Urine Amount (Catheter) 800 / 800 Indwelling Temp Sensing 800 / 800 Catheter Other: # Voids 2 Date of Last Bowel Movement 09/01/17 09/01/17 # Bowel Movements 1 09/01/17 19:57 Blood - Peripheral Aerobic Blood Culture - Preliminary No growth in 1 day 09/01/17 19:57 Blood - Peripheral Anaerobic Blood Culture - Preliminary No growth in 1 day 09/01/17 20:11 Blood - Peripheral Aerobic Blood Culture - Preliminary No growth in 1 day 09/01/17 20:11 Blood - Peripheral Anaerobic Blood Culture - Preliminary No growth in 1 day 08/30/17 06:15 Blood - Peripheral Aerobic Blood Culture - Preliminary No growth in 3 days 08/30/17 06:15 Blood - Peripheral Anaerobic Blood Culture - Preliminary No growth in 3 days 08/30/17 06:28 Blood - Peripheral Aerobic Blood Culture - Preliminary No growth in 3 days 08/30/17 06:28 Blood - Peripheral Anaerobic Blood Culture - Preliminary No growth in 3 days 08/30/17 02:40 Blood - Peripheral Aerobic Blood Culture - Preliminary Yeast - ID to follow 08/30/17 02:40 Blood - Peripheral Anaerobic Blood Culture - Preliminary No growth in 3 days 08/30/17 02:35 Blood - Peripheral Aerobic Blood Culture - Preliminary No growth in 3 days 08/30/17 02:35 Blood - Peripheral Anaerobic Blood Culture - Preliminary No growth in 3 days 08/30/17 04:10 Catheterized Urine Urine Culture - Final Amelie albicans Lab - Hematology Results 09/02/17 06:00 WBC 20.3 H RBC 4.02 L Hgb 11.1 L D Hct 32.9 L MCV 81.9 MCH 27.6 MCHC 33.7 RDW 15.6 Plt Count 309 MPV 7.3 Neut % (Auto) 96.5 H Lymph % (Auto) 1.6 L [place]inger % (Auto) 1.9 Eos % (Auto) 0.0 Baso % (Auto) 0.0 Neut # (Auto) 19.5 H Lymph # (Auto) 0.3 L [place] # (Auto) 0.4 Eos # (Auto) 0.0 Baso # (Auto) 0.0 WBC Differential . Differential Comment Auto diff final Lab - Chemistry Results 08/31/17 08/31/17 09/01/17 16:24 17:53 01:28 Sodium Potassium Chloride Carbon Dioxide Anion Gap BUN Creatinine Estimated GFR POC Glucose 69 124 H 121 H Random Glucose Calcium 09/01/17 09/01/17 09/01/17 05:38 08:32 12:35 Sodium Potassium Chloride Carbon Dioxide Anion Gap BUN Creatinine Estimated GFR POC Glucose 124 H 152 H 186 H Random Glucose Calcium 09/01/17 09/01/17 09/02/17 17:12 23:23 05:45 Sodium Potassium Chloride Carbon Dioxide Anion Gap BUN Creatinine Estimated GFR POC Glucose 138 H 137 H 144 H Random Glucose Calcium 09/02/17 09/02/17 06:00 12:40 Sodium 148 H Potassium 2.9 L* Chloride 112 H Carbon Dioxide 25.8 Anion Gap 10 BUN 18 Creatinine 1.56 H Estimated GFR 43 L POC Glucose 155 H Random Glucose 135 H Calcium 7.9 L Imaging: ITS Impressions Chest X-Ray 08/30/17 02:22 CONCLUSION: 1. Mild bilateral hazy pulmonary opacity, likely representing mild pulmonary edema. 2. Small right pleural effusion. Chest CTA 08/30/17 03:47 CONCLUSION: 1. No evidence of pulmonary embolus. 2. 3 cm filling defect in the left atrium suspicious for thrombus. 3. Moderate severity bilateral lower lobe pulmonary consolidation/atelectasis and small pleural effusions. 4. 7 mm nodular density right upper lobe. Recommend six-month follow-up noncontrast chest CT. 5. Cholelithiasis. Abdomen/Bladder Ultrasound 09/02/17 00:00 CONCLUSION: Echogenic kidneys bilaterally compatible with medical renal disease. Bladder stone Physical Exam: GENERAL: Did not open eyes, not responsive, body very stiff, not in distress SKIN: Cool and dry, no generalized rash, no ecchymoses and no evidence of embolic lesions. HEAD: Atraumatic. Normocephalic. No temporal wasting, or tenderness. EYES: [place] conjunctiva. No petechia or hemorrhage. Pupils equal, round and reactive to light. No scleral icterus. No injection or drainage. EARS, NOSE AND THROAT: Nose without bleeding or purulent nasal discharge. Mucous membranes pink and moist. Limited exam NECK: Neck very stiff and he keeps it in slightly flexed position CARDIOVASCULAR: Regular rate and rhythm. Soft heart sounds RESPIRATORY: Scattered rhonchi L, decreased at bases ABDOMEN: Soft, not distended, no reaction to deep palpation, not guarding. Bowel sounds present and normoactive. EXTREMITIES: No clubbing, cyanosis. Has mild pedal edema. 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 bedbound Stage 4 decubitus, looks pretty clean Acute renal failure, etiology? improving - ?due to IV contrast - ?due to sepsis - ?obstruction, has zhang placed here Hx prostate CA, S/P cryoablation Leukocytosis, decreasing Recommendation Continue Diflucan and Micafungin until amelie has been identified Continue Zosyn Repeat CXR Follow C/S Monitor progress Palliative medicine following to determine goals of care If more (+) BC, will do echo and prob ask ophtha consult Will determine course of Rx once work-up completed D/W RN Spoke with I will be off September 03- Other ID MD covering in my absence
--- NOTE | 2017-09-02 17:55 | P.PN ---
Physical Exam Vital signs: Vital Signs 09/01/17 19:19 09/01/17 20:00 09/01/17 20:20 Temperature 98 F Pulse Rate 76 92 H Respiratory Rate 12 19 Blood Pressure 135/79 Pulse Oximetry 97 97 97 09/01/17 23:59 09/02/17 00:00 09/02/17 04:00 Temperature 97.6 F 97.5 F L Pulse Rate 71 76 77 Respiratory Rate 19 19 Blood Pressure 136/62 135/67 Pulse Oximetry 97 97 09/02/17 04:24 09/02/17 08:00 09/02/17 08:18 Temperature 98.4 F Pulse Rate 73 74 73 Respiratory Rate 20 19 Blood Pressure 127/69 Pulse Oximetry 96 09/02/17 11:59 09/02/17 12:00 09/02/17 16:00 Temperature 98.2 F 97.9 F Pulse Rate 71 72 75 Respiratory Rate 18 18 18 Blood Pressure 142/78 H 156/83 H Pulse Oximetry 99 100 Intake & Output 09/01/17 09/02/17 09/02/17 18:59 06:59 18:59 Intake Total 1050 / 1050 550 / 550 1350 / 1350 Output Total 800 / 800 Balance 1050 / 1050 -250 / -250 1350 / 1350 Weight 68.9 kg Intake: IV 1050 / 1050 450 / 450 1350 / 1350 D5W/1/2NS + KCL 10 mEq Inj 1, 1000 / 1000 1000 / 1000 000 ML @ 45 mls/hr IV.CONT . [id number] MICHELLE Rx#:[id number] Diflucan 400 mg Premix Bag 200 200 / 200 ML @ 100 mls/hr IV.SIG Q24H MICHELLE Rx#:[id number] Mycamine Inj 100 MG In NS Inj 100 / 100 100 ML @ 100 mls/hr IV.SIG Q24H MICHELLE Rx#:[id number] Zosyn 2.25 GM Premix 50 ML @ 50 / 50 150 / 150 50 / 50 100 mls/hr IV.SIG Q6H MICHELLE Rx#: [id number] KCl 20 mEq Premix Inj 20 meq In 300 / 300 100 ml @ 50 mls/hr IV.SIG Q2H MICHELLE Rx#:[id number] Oral 100 / 100 Output: Urine Amount (Catheter) 800 / 800 Indwelling Temp Sensing 800 / 800 Catheter Other: # Voids 2 Date of Last Bowel Movement 09/01/17 09/01/17 # Bowel Movements 1 Narrative: Subjective: Patient in bed with severe Parkinsonism and not able to talk or follow any commands. Flat affects and not engaging. He is on rebreather mask at tis time, sattign well, he doesn't appear in acute distress. at bedside Patient failed swallow eval persistently. Discussed with the she agrees to have Dubhoff and start feedings however no custodial PEG Physical exam: GENERAL: Elderly male, cachectic, chronically ill appearance with shortness of breath saturating well while on nonrebreather mask at this time. Nonverbal. SKIN: Warm and dry. Stage IV sacral decubitus ulcers present on admission. CARDIOVASCULAR: Regular rate and rhythm. RESPIRATORY: Bronchial, course respiratory sounds. No wheezing. GASTROINTESTINAL: Abdomen soft, non-tender, nondistended. Hepatic and splenic margins not palpable. MUSCULOSKELETAL: Extremities without clubbing, cyanosis, or edema. No obvious deformities. NEUROLOGICAL: Awake and alert. No obvious cranial nerve deficits. Nonverbal doesn't follow commands. Assessment and Plan Acute respiratory failure patient placed on BiPAP as he was dessating in 80s. Sepsis with (tachycardia, tachypnea, leukocytosis, source of infection possible pneumonia and UTI, sacral decubitus ulcers stage IV on admission) Stage 4 sacral decubitus ulcers, present on admission Atrial fibrillation. Elevated BNP possible CHF unknown EF. Will do 2D ECHO Advanced Parkinson's, bedbound Small right pleural effusion 7 mm nodular density right upper lobe of lung seen by CT recommend follow-up noncontrast CT chest in 6 months History of 3 cm thrombus in the left atrium Cholelithiasis DNR/DNI CODE STATUS Dysphagia NPO failed swallow eval . Place Dubhoff and start feedings, fifth hand consulted for Obtain blood cultures, urine cultures, wound cultures, follow-up results Start IV antibiotics Zosyn and vancomycin Duo nebs, steroids, Lasix by 1 time IV 20 mg. Elevated BNP poss CHF with exacerbation. Will do 2D ECHO Monitor vital signs. Monitor kidney function Trend white blood cells ABG. Maintain oxygen saturation more than 94.Consult pulm if need. Restart home medications as appropriate Consult his neurology Dr Elliott Consult wound care Consult palliative care for goals of care and hospice as had discussions with hospice while at [facility]F. Appreciate recommendations. wants hospice to follow but did not decide for hospice yet Continue recommendations for wound care per wound care recommendations. CODE STATUS: DNR/ DNI Discussed with the nurse, case management, wound care nurse Deborah, family at bedside . CM is following for possible transfer to [facility] as per request. However [facility] will not take patient. Discussed with the at bedside and she is not happy with wound care and with wound recommendations. I spoke with Deborah from wound care to reevaluate patient. Also discussed with the regarding goals of care and she is not considering hospice at this time. - Urinary Catheter Management Indwelling Temp Sensing Catheter Cath placed during this visit: no Reason for continuing: Hourly intake/output Results - Labs CBC & Chem 7: 09/02/17 06:00 09/02/17 06:00 Laboratory Results - last 24 hr 09/01/17 09/02/17 09/02/17 23:23 03:10 03:10 WBC RBC Hgb Hct MCV MCH MCHC RDW Plt Count MPV Neut % (Auto) Lymph % (Auto) [place] % (Auto) Eos % (Auto) Baso % (Auto) Neut # (Auto) Lymph # (Auto) [place] # (Auto) Eos # (Auto) Baso # (Auto) WBC Differential Differential Comment Sodium Potassium Chloride Carbon Dioxide Anion Gap BUN Creatinine Estimated GFR POC Glucose 137 H Random Glucose Calcium Urine Color Yellow Urine Clarity Cloudy H Urine pH 5.0 Ur Specific [place] 1.031 Urine Protein 30 H Urine Glucose (UA) Negative Urine Ketones Negative Urine Occult Blood Moderate H Urine Nitrate Negative Urine Bilirubin Negative Urine Urobilinogen Less than 2 Ur Leukocyte Esterase Large H Urine RBC 42 H Urine WBC 134 H Urine WBC Clumps Occasional H Urine Bacteria Occasional H Urine Mucus Few H Urine Yeast Moderate H Urine Eosinophils None seen 09/02/17 09/02/17 09/02/17 05:45 06:00 06:00 WBC 20.3 H RBC 4.02 L Hgb 11.1 L D Hct 32.9 L MCV 81.9 MCH 27.6 MCHC 33.7 RDW 15.6 Plt Count 309 MPV 7.3 Neut % (Auto) 96.5 H Lymph % (Auto) 1.6 L [place] % (Auto) 1.9 Eos % (Auto) 0.0 Baso % (Auto) 0.0 Neut # (Auto) 19.5 H Lymph # (Auto) 0.3 L [place] # (Auto) 0.4 Eos # (Auto) 0.0 Baso # (Auto) 0.0 WBC Differential . Differential Comment Auto diff final Sodium 148 H Potassium 2.9 L* Chloride 112 H Carbon Dioxide 25.8 Anion Gap 10 BUN 18 Creatinine 1.56 H Estimated GFR 43 L POC Glucose 144 H Random Glucose 135 H Calcium 7.9 L Urine Color Urine Clarity Urine pH Ur Specific [place] Urine Protein Urine Glucose (UA) Urine Ketones Urine Occult Blood Urine Nitrate Urine Bilirubin Urine Urobilinogen Ur Leukocyte Esterase Urine RBC Urine WBC Urine WBC Clumps Urine Bacteria Urine Mucus Urine Yeast Urine Eosinophils 09/02/17 12:40 WBC RBC Hgb Hct MCV MCH MCHC RDW Plt Count MPV Neut % (Auto) Lymph % (Auto) [place] % (Auto) Eos % (Auto) Baso % (Auto) Neut # (Auto) Lymph # (Auto) [place] # (Auto) Eos # (Auto) Baso # (Auto) WBC Differential Differential Comment Sodium Potassium Chloride Carbon Dioxide Anion Gap BUN Creatinine Estimated GFR POC Glucose 155 H Random Glucose Calcium Urine Color Urine Clarity Urine pH Ur Specific [place] Urine Protein Urine Glucose (UA) Urine Ketones Urine Occult Blood Urine Nitrate Urine Bilirubin Urine Urobilinogen Ur Leukocyte Esterase Urine RBC Urine WBC Urine WBC Clumps Urine Bacteria Urine Mucus Urine Yeast Urine Eosinophils Microbiology 08/30/17 02:40 Blood - Peripheral Aerobic Blood Culture - Final Amelie albicans 08/30/17 02:40 Blood - Peripheral Anaerobic Blood Culture - Preliminary No growth in 3 days 09/01/17 19:57 Blood - Peripheral Aerobic Blood Culture - Preliminary No growth in 1 day 09/01/17 19:57 Blood - Peripheral Anaerobic Blood Culture - Preliminary No growth in 1 day 09/01/17 20:11 Blood - Peripheral Aerobic Blood Culture - Preliminary No growth in 1 day 09/01/17 20:11 Blood - Peripheral Anaerobic Blood Culture - Preliminary No growth in 1 day 08/30/17 06:15 Blood - Peripheral Aerobic Blood Culture - Preliminary No growth in 3 days 08/30/17 06:15 Blood - Peripheral Anaerobic Blood Culture - Preliminary No growth in 3 days 08/30/17 06:28 Blood - Peripheral Aerobic Blood Culture - Preliminary No growth in 3 days 08/30/17 06:28 Blood - Peripheral Anaerobic Blood Culture - Preliminary No growth in 3 days 08/30/17 02:35 Blood - Peripheral Aerobic Blood Culture - Preliminary No growth in 3 days 08/30/17 02:35 Blood - Peripheral Anaerobic Blood Culture - Preliminary No growth in 3 days - Imaging Impressions Abdomen/Bladder Ultrasound 09/02/17 00:00 CONCLUSION: Echogenic kidneys bilaterally compatible with medical renal disease. Bladder stone Assessment and Plan - Plan Acute respiratory failure patient placed on BiPAP as he was dessating in 80s. Sepsis with (tachycardia, tachypnea, leukocytosis, source of infection possible pneumonia and UTI, sacral decubitus ulcers stage IV on admission) Stage 4 sacral decubitus ulcers Atrial fibrillation. Elevated BNP possible CHF unknown EF. Will do 2D ECHO Advanced Parkinson's, bedbound Small right pleural effusion 7 mm nodular density right upper lobe of lung seen by CT recommend follow-up noncontrast CT chest in 6 months History of 3 cm thrombus in the left atrium Cholelithiasis DNR/DNI CODE STATUS Obtain blood cultures, urine cultures, wound cultures, follow-up results Start IV antibiotics Zosyn and vancomycin Duo nebs, steroids, Lasix by 1 time IV 20 mg. Elevated BNP poss CHF with exacerbation. Will do 2D ECHO Monitor vital signs. Monitor kidney function Trend white blood cells ABG. Maintain oxygen saturation more than 94.Consult pulm if need. Restart home medications as appropriate Consult his neurology Dr Elliott Consult wound care Consult palliative care for goals of care and hospice as had discussions with hospice while at [facility] CODE STATUS: DNR/ DNI Discussed at length with his , nurse, case management CM is following for possible transfer to [facility] as per request.
--- NOTE | 2017-09-02 18:00 | P.PN ---
Subjective Interval history: He is not responsive. On a NRB Mask. Poorly responsive. Has some fever. On antibiotics for Blood culture showing amelie. CXR shows basal infiltrates Physical Exam Vital signs: Vital Signs 09/01/17 19:19 09/01/17 20:00 09/01/17 20:20 Temperature 98 F Pulse Rate 76 92 H Respiratory Rate 12 19 Blood Pressure 135/79 Pulse Oximetry 97 97 97 09/01/17 23:59 09/02/17 00:00 09/02/17 04:00 Temperature 97.6 F 97.5 F L Pulse Rate 71 76 77 Respiratory Rate 19 19 Blood Pressure 136/62 135/67 Pulse Oximetry 97 97 09/02/17 04:24 09/02/17 08:00 09/02/17 08:18 Temperature 98.4 F Pulse Rate 73 74 73 Respiratory Rate 20 19 Blood Pressure 127/69 Pulse Oximetry 96 09/02/17 11:59 09/02/17 12:00 09/02/17 16:00 Temperature 98.2 F 97.9 F Pulse Rate 71 72 75 Respiratory Rate 18 18 18 Blood Pressure 142/78 H 156/83 H Pulse Oximetry 99 100 Intake & Output 09/01/17 09/02/17 09/02/17 18:59 06:59 18:59 Intake Total 1050 / 1050 550 / 550 1350 / 1350 Output Total 800 / 800 Balance 1050 / 1050 -250 / -250 1350 / 1350 Weight 68.9 kg Intake: IV 1050 / 1050 450 / 450 1350 / 1350 D5W/1/2NS + KCL 10 mEq Inj 1, 1000 / 1000 1000 / 1000 000 ML @ 45 mls/hr IV.CONT . [id number] MICHELLE Rx#:[id number] Diflucan 400 mg Premix Bag 200 200 / 200 ML @ 100 mls/hr IV.SIG Q24H MICHELLE Rx#:[id number] Mycamine Inj 100 MG In NS Inj 100 / 100 100 ML @ 100 mls/hr IV.SIG Q24H MICHELLE Rx#:[id number] Zosyn 2.25 GM Premix 50 ML @ 50 / 50 150 / 150 50 / 50 100 mls/hr IV.SIG Q6H MICHELLE Rx#: [id number] KCl 20 mEq Premix Inj 20 meq In 300 / 300 100 ml @ 50 mls/hr IV.SIG Q2H MICHELLE Rx#:[id number] Oral 100 / 100 Output: Urine Amount (Catheter) 800 / 800 Indwelling Temp Sensing 800 / 800 Catheter Other: # Voids 2 Date of Last Bowel Movement 09/01/17 09/01/17 # Bowel Movements 1 Narrative: Subjective: Patient in bed with severe Parkinsonism and not able to talk or follow any commands. Flat affects and not engaging. He is on rebreather mask at tis time, sattign well, he doesn't appear in acute distress. Physical exam: GENERAL: Elderly male, cachectic, chronically ill appearance with shortness of breath saturating well while on nonrebreather mask at this time. Nonverbal. SKIN: Warm and dry. Stage IV sacral decubitus ulcers present on admission. CARDIOVASCULAR: Regular rate and rhythm. RESPIRATORY: Bronchial, course respiratory sounds. No wheezing. GASTROINTESTINAL: Abdomen soft, non-tender, nondistended. Hepatic and splenic margins not palpable. MUSCULOSKELETAL: Extremities without clubbing, cyanosis, or edema. No obvious deformities. NEUROLOGICAL: Awake and alert. No obvious cranial nerve deficits. Nonverbal doesn't follow commands. - Constitutional moderate distress - Routine HEENT Exam Head: Present: normocephalic, facial swelling Eye: Present: scleral injection, conjunctivae pink ENT: Present: mucous membranes dry, nares patent - Routine Neck Exam Present: supple, trachea midline - Routine Respiratory Exam Present: accessory muscle use, respiratory distress, wheezes, crackles, diminished air movement - Routine Cardiovascular Exam Present: S1, S2, irregular rhythm - Routine Abdominal Exam Present: soft, normoactive bowel sounds, organomegaly - Routine Skin Exam Present: pallor, wounds - Routine Neurological Exam Present: altered mental status, asterixis - Detailed Neurological Exam: Coma Scale Eye Opening: None - Urinary Catheter Management Indwelling Temp Sensing Catheter Cath placed during this visit: no Reason for continuing: Hourly intake/output Results - Labs CBC & Chem 7: 09/02/17 06:00 09/02/17 06:00 Laboratory Results - last 24 hr 09/01/17 09/02/17 09/02/17 23:23 03:10 03:10 WBC RBC Hgb Hct MCV MCH MCHC RDW Plt Count MPV Neut % (Auto) Lymph % (Auto) [place] % (Auto) Eos % (Auto) Baso % (Auto) Neut # (Auto) Lymph # (Auto) [place] # (Auto) Eos # (Auto) Baso # (Auto) WBC Differential Differential Comment Sodium Potassium Chloride Carbon Dioxide Anion Gap BUN Creatinine Estimated GFR POC Glucose 137 H Random Glucose Calcium Urine Color Yellow Urine Clarity Cloudy H Urine pH 5.0 Ur Specific [place] 1.031 Urine Protein 30 H Urine Glucose (UA) Negative Urine Ketones Negative Urine Occult Blood Moderate H Urine Nitrate Negative Urine Bilirubin Negative Urine Urobilinogen Less than 2 Ur Leukocyte Esterase Large H Urine RBC 42 H Urine WBC 134 H Urine WBC Clumps Occasional H Urine Bacteria Occasional H Urine Mucus Few H Urine Yeast Moderate H Urine Eosinophils None seen 09/02/17 09/02/17 09/02/17 05:45 06:00 06:00 WBC 20.3 H RBC 4.02 L Hgb 11.1 L D Hct 32.9 L MCV 81.9 MCH 27.6 MCHC 33.7 RDW 15.6 Plt Count 309 MPV 7.3 Neut % (Auto) 96.5 H Lymph % (Auto) 1.6 L [place] % (Auto) 1.9 Eos % (Auto) 0.0 Baso % (Auto) 0.0 Neut # (Auto) 19.5 H Lymph # (Auto) 0.3 L [place] # (Auto) 0.4 Eos # (Auto) 0.0 Baso # (Auto) 0.0 WBC Differential . Differential Comment Auto diff final Sodium 148 H Potassium 2.9 L* Chloride 112 H Carbon Dioxide 25.8 Anion Gap 10 BUN 18 Creatinine 1.56 H Estimated GFR 43 L POC Glucose 144 H Random Glucose 135 H Calcium 7.9 L Urine Color Urine Clarity Urine pH Ur Specific [place] Urine Protein Urine Glucose (UA) Urine Ketones Urine Occult Blood Urine Nitrate Urine Bilirubin Urine Urobilinogen Ur Leukocyte Esterase Urine RBC Urine WBC Urine WBC Clumps Urine Bacteria Urine Mucus Urine Yeast Urine Eosinophils 09/02/17 12:40 WBC RBC Hgb Hct MCV MCH MCHC RDW Plt Count MPV Neut % (Auto) Lymph % (Auto) [place] % (Auto) Eos % (Auto) Baso % (Auto) Neut # (Auto) Lymph # (Auto) [place] # (Auto) Eos # (Auto) Baso # (Auto) WBC Differential Differential Comment Sodium Potassium Chloride Carbon Dioxide Anion Gap BUN Creatinine Estimated GFR POC Glucose 155 H Random Glucose Calcium Urine Color Urine Clarity Urine pH Ur Specific [place] Urine Protein Urine Glucose (UA) Urine Ketones Urine Occult Blood Urine Nitrate Urine Bilirubin Urine Urobilinogen Ur Leukocyte Esterase Urine RBC Urine WBC Urine WBC Clumps Urine Bacteria Urine Mucus Urine Yeast Urine Eosinophils Microbiology 08/30/17 02:40 Blood - Peripheral Aerobic Blood Culture - Final Amelie albicans 08/30/17 02:40 Blood - Peripheral Anaerobic Blood Culture - Preliminary No growth in 3 days 09/01/17 19:57 Blood - Peripheral Aerobic Blood Culture - Preliminary No growth in 1 day 09/01/17 19:57 Blood - Peripheral Anaerobic Blood Culture - Preliminary No growth in 1 day 09/01/17 20:11 Blood - Peripheral Aerobic Blood Culture - Preliminary No growth in 1 day 09/01/17 20:11 Blood - Peripheral Anaerobic Blood Culture - Preliminary No growth in 1 day 08/30/17 06:15 Blood - Peripheral Aerobic Blood Culture - Preliminary No growth in 3 days 08/30/17 06:15 Blood - Peripheral Anaerobic Blood Culture - Preliminary No growth in 3 days 08/30/17 06:28 Blood - Peripheral Aerobic Blood Culture - Preliminary No growth in 3 days 08/30/17 06:28 Blood - Peripheral Anaerobic Blood Culture - Preliminary No growth in 3 days 08/30/17 02:35 Blood - Peripheral Aerobic Blood Culture - Preliminary No growth in 3 days 08/30/17 02:35 Blood - Peripheral Anaerobic Blood Culture - Preliminary No growth in 3 days - Imaging Impressions Abdomen/Bladder Ultrasound 09/02/17 00:00 CONCLUSION: Echogenic kidneys bilaterally compatible with medical renal disease. Bladder stone Assessment and Plan - Assessment (1) Respiratory failure with hypercapnia Code(s): J96.92 - Respiratory failure, unspecified with hypercapnia Status: Acute Plan: Use BiPAP 15/5 , 40 % FIO2 if tolerated Duonebs q6h. (2) Respiratory failure with hypoxia and hypercapnia Code(s): J96.91 - Respiratory failure, unspecified with hypoxia; J96.92 - Respiratory failure, unspecified with hypercapnia Status: Acute (3) Pneumonia due to aerobic bacteria Code(s): J15.6 - Pneumonia due to other Gram-negative bacteria Status: Acute Plan: Antibiotics per ID. Micafungin/ Zosyn (4) Dementia Code(s): F03.90 - Unspecified dementia without behavioral disturbance Status: Acute (5) Decubitus skin ulcer Code(s): L89.90 - Pressure ulcer of unspecified site, unspecified stage Status : Acute (6) Pneumonia Code(s): J18.9 - Pneumonia, unspecified organism Status: Acute Plan: Antibiotics per ID and get Chest Xray. (7) Bacterial UTI Code(s): N39.0 - Urinary tract infection, site not specified; A49.9 - Bacterial infection, unspecified Status: Acute (8) Hx of prosthetic heart valve Code(s): Z95.2 - Presence of prosthetic heart valve Status: Acute - Plan 1. Cont antibiotics / Zosyn and Vancomycin 2. Duoneb nebs qid. 3. Add BIPAP at 15/6, FIO2 50 %. 4. Solumedrol 40 mg BID 5. Continue IV fluids for hydration 6. CBC,BMP ,CXR in am 7. DNR Status. (6) Pneumonia Qualifiers: Qualified Code(s): J18.9 - Pneumonia, unspecified organism
[2017-09-02 19:39] LABS: Calcium 8.3 mg/dL (8.5-10.1); Carbon Dioxide 23.6 meq/L (21.0-32.0)
--- NOTE | 2017-09-03 02:01 | XR ---
EXAM DATE: 09/03/2017 1:28 AM EDT AGE/SEX: 76 years / Male INDICATIONS: dOBHOFF PLACEMENT. CLINICAL DATA: This is the patient's subsequent encounter. Patient reports that signs and symptoms h ave been present for 4 - 6 days and indicates a pain score of Nonresponsive. MEDICAL/SURGICAL HISTORY: . Hypertension. Stroke. Carcinoma, prostatic. Dementia. Parkinson's . Heart valve replacement. COMPARISON: No prior exams available for comparison. FINDINGS: There is a feeding type nasoenteric catheter with tip in the proximal duodenum. No dilated loops of b owel. Bilateral pleural-parenchymal opacities in the visualized lung bases. Osseous structures are in tact. CONCLUSION: 1. Nasoenteric feeding tube tip in the proximal duodenum. Electronically signed by: Hector Donohue MD 09/03/2017 2:00 AM EDT
--- NOTE | 2017-09-03 02:56 | XR ---
EXAM DATE: 09/03/2017 1:30 AM EDT AGE/SEX: 76 years / Male INDICATIONS: Short of breath. CLINICAL DATA: This is the patient's initial encounter. Patient reports that signs and symptoms have been present for 4 - 6 days and indicates a pain score of Nonresponsive. MEDICAL/SURGICAL HISTORY: . Hypertension. Stroke. Carcinoma, prostatic. Dementia. Parkinson's . Heart valve replacement. COMPARISON: [facility] [place], CHEST 1V SINGLE AP, 08/30/2017. . FINDINGS: Examination is limited due to flexed head obscuring large portion of the right lung. There are small bilateral pleural effusions with associated airspace disease in the lower lobes. Cardiac silhouette i s enlarged with indistinct central pulmonary vascularity. Visualized bony thorax is intact. There is a nasoenteric catheter coursing beyond the GE junction. CONCLUSION: 1. Limited exam with limited evaluation of the right upper lobe. 2. Small bilateral pleural effusions with associated lower lung zone airspace disease. 3. Cardiomegaly with positive fluid balance. Electronically signed by: Hector Donohue MD 09/03/2017 2:55 AM EDT
[2017-09-03] MEDS: Piperacil/Tazo 2.25 GM Premix 50 ML IV.SIG SCH ×2 (05:21→09:42)
[2017-09-03] MEDS: Heparin - SQ 10,000 UNITS/ML Vial SQ SCH ×2 (05:22→17:27)
[2017-09-03 07:33] LABS: Hematocrit 33.3 % (39.0-51.0); Lymph # (Auto) 0.3 th/mm3 (1.0-4.8); Lymph % (Auto) 1.7 % (9.0-44.0); Mean Corpuscular Hemoglobin 27.1 pg (27.0-34.0); Mean Corpuscular Volume 82.3 fL (80.0-100.0); Mean Platelet Volume 7.5 fL (7.0-11.0); Mono # (Auto) 0.5 th/mm3 (0.0-0.9); Mono % (Auto) 2.9 % (0.0-8.0); Neut # (Auto) 17.9 th/mm3 (1.8-7.7); Neut % (Auto) 95.4 % (16.0-70.0); Platelet Count 289 th/mm3 (150-450); Red Blood Count 4.05 mil/mm3 (4.50-5.90); Red Cell Distribution Width 15.4 % (11.6-17.2); White Blood Count 18.8 th/mm3 (4.0-11.0)
[2017-09-03 07:59] LABS: Calcium 8.1 mg/dL (8.5-10.1); Potassium 3.6 meq/L (3.5-5.1)
[2017-09-03] MEDS: Lisinopril 10 MG Tablet PO SCH (09:37)
[2017-09-03] MEDS: Senna/Docusate Sodium 8.6/50 MG Tablet PO SCH ×2 (09:38→20:50)
[2017-09-03] MEDS: amLODIPine 5 MG Tablet PO SCH (09:39)
[2017-09-03] MEDS: MethylPREDNISolone Sod Succinate Inj 40 MG/ML Vial IV.PUSH SCH ×2 (09:40→20:50)
[2017-09-03] MEDS: Collagenase Oint 30 GM Tube TOPICAL SCH (09:41)
--- NOTE | 2017-09-03 12:50 | P.DIET ---
Nutritional Evaluation Type of nutrition evaluation: follow-up Nutrition consult regarding: Tube Feeding, Diet Evaluation [place] [facility] [place]: [place] [facility] [place] Counting for eval of peg tube, also dietary recs Subjective Subjective Comments: Pt receiving a breathing treatment; eyes closed. RN Saloni reports pt has no po intake d/t he is lethargic Objective - Diagnosis Pneumonia, UTI - Objective % IBW: 107 (IBW 64.5kg) Body Weight Used for Calculations: Actual Energy Needs - Lower Range (kCal/kg): 30 Energy Needs - Upper Range (kCal/kg): 35 Lower Limit kCal/kg (kCals): 2,070 Upper Limit kCal/kg (kCals): 2,415 Lower Limit Protein Factor (Grams per Kg): 1.2 Upper Limit Protein Factor (Grams per Kg): 1.5 Lower Protein Needs (Protein): 83 Upper Protein Needs (Protein): 104 Fluid Factor (ml/kg): 30 Estimated Fluid Needs (ml): 2,070 Dietitian Reviewed in Medical Record: Curent medications, Intake & Output, Labs , Tube feeding Diet Order: TF'ing Bolus, Jevity 1.5 @ 55ml/hr Speech Therapy Recommendations: Yes (NPO) Wound Care Note: 08/30/17 WOCN: Stage 4 pressure injury-please see note in EMR Objective Comments: PMH: AFib, CVA, Dementia, Edema, GERD, HTN, Hypokalemia, Parkinson's Disease- bedbound, Pressure Ulcer, Prostate Cancer, PTSD Labs Include: Na 148, K 3.6, BUN 21, Creatinine 1.22, estGFR 58, Glucose 162, Accucheck 174, 187 Meds Include: Norvasc, Sinemet, Diflucan, Lactulose, Lisinopril, Namenda, Solumedrol, Zofran, VitD3 LBM 09/01 Feeding - Current Tube Feeding Tube Feeding Product: Jevity 1.5 Tube Feeding Rate: 30 Tube Feeding Route: nasogastric Current kCals Provided by Tube Feedin,080 Current Protein Provided by Tube Feeding (gPRO): 46 Current Free H2O Provided (m/l): 547 Assessment Assessment: Pt is at nutrition risk r/t diagnosis and increased needs for wound healing. Pt is lethargic, NPO per ST. Dobbhoff in place. For TF'ing w/Jevity 1.5, Rec goal rate @ 60ml/hr to offer 2160 kcal, 91.9g Protein and 1094ml free water. Rec to increase TF'ing rate 10ml Q 4-hr, as tolerated, to goal rate. Pt w/Stage 4 sacral pressure injury, per WOCN. Rec Addition of Riley 1-packet bid for wound healing. Mix each packet Riley w/8-oz water and syringe via NGT. Additional Free water flush per MD. Wt noted. Labs reviewed-monitor glucose closely. Additional Recs r/t Clinical Course. Recommendations: 1.For TF'ing w/Jevity 1.5, Rec goal rate @ 60ml/hr 2.Rec to increase TF'ing rate 10ml Q 4-hr, as tolerated, to goal rate 3.Pt w/Stage 4 sacral pressure-Rec Addition of [place] 1-packet bid for wound healing-Mix each packet Riley w/8-oz water and syringe via NGT 4.Additional Free water flush per MD 5.Additional Recs r/t Clinical Course Dietitian to Monitor: Lab values, Electrolytes, Renal labs, Glucose level, Intake & Output, Tube feeding tolerance, Weight change, Diet advancement, Wound/ skin status, Swallow recommendations, Medical course
[2017-09-03] MEDS: KCL 10 mEq/D5W/NaCl 0.45% Inj 1,000 ML IV.CONT SCH ×2 (14:12→18:43)
--- NOTE | 2017-09-03 14:24 | P.PNPAL ---
Reason for Visit Reason for visit: a. To assist with evaluation and management of symptoms including: weakness, dyspnea. b. To assist medical decision maker(s) with: better understanding of current medical conditions; weighing benefits/burdens of medical treatment options; making medical treatment decisions. Subjective Subjective/Interval History: Patient seen and examined in room. Family friend at bedside, who was here to shave him and wash his hair in preparation for patient's birthday tomorrow. He states "we need him here to celebrate his birthday tomorrow." Patient remains unresponsive. He is on oxygen via NC. Tolerating tube feeding via NG. Tmax 99.3. WBC decreased from 20.3 to 18.8. Blood cultures negative to date. Remains on Fluconazole and Micafungin for amelie in urine. ID following. . Family/Friend Interactions: Spoke with via phone to provide medical update. She verbalizes some frustrations regarding his wound. She does not seem to like Harlan and is upset he was not brought to [facility] from the [facility]. has refused transfer of patient. verbalizes she knows the patient is "going to ." She wants to see how he does for another 3-5 days with NG tube feeding. She does not thinks she would want to put him through a surgery to have a permanent feeding tube placed if it was not going to change his outcome. She does not be the one to "determine his fate." She states she knows "the inevitable." She is not ready to consider hospice services. Appreciates update. Advance Directives Health Care Surrogate Name and Number: Dwight Bhatia, HCP/ : [phone] or [phone] Documented care wishes:: [place] DNR order signed on chart completed July. Significant change in goals:: NO CODE 9DNR/DNI). desires continued aggressive care short of NO CODE for now. Objective Vital Signs: Vital Signs 09/02/17 16:00 09/02/17 20:00 09/02/17 20:59 Temperature 97.9 F 97.5 F L Pulse Rate 75 76 72 Respiratory Rate 18 16 18 Blood Pressure 156/83 H 118/64 Pulse Oximetry 100 100 100 09/02/17 21:00 09/03/17 00:00 09/03/17 04:00 Temperature 97.7 F 97.9 F Pulse Rate 77 69 Respiratory Rate 16 16 Blood Pressure 115/69 146/90 H Pulse Oximetry 100 100 99 09/03/17 08:00 09/03/17 10:11 09/03/17 12:00 Temperature 98.9 F 99.3 F Pulse Rate 77 71 91 H Respiratory Rate 20 17 20 Blood Pressure 156/69 H 138/65 Pulse Oximetry 99 98 94 L Intake & Output 09/02/17 09/03/17 09/03/17 18:59 06:59 18:59 Intake Total 1400 / 1400 100 / 100 Output Total 300 / 300 104 / 104 Balance 1400 / 1400 -200 / -200 -104 / -104 Weight 69 kg Intake: IV 1400 / 1400 100 / 100 D5W/1/2NS + KCL 10 mEq Inj 1, 1000 / 1000 000 ML @ 45 mls/hr IV.CONT . [id number] MICHELLE Rx#:[id number] Zosyn 2.25 GM Premix 50 ML @ 100 / 100 100 / 100 100 mls/hr IV.SIG Q6H MICHELLE Rx#: [id number] KCl 20 mEq Premix Inj 20 meq In 300 / 300 100 ml @ 50 mls/hr IV.SIG Q2H MICHELLE Rx#:[id number] Oral 0 / 0 Output: Urine Amount (Catheter) 300 / 300 Indwelling Temp Sensing 300 / 300 Catheter Gastric Drainage 104 / 104 Small Bore Feeding Tube 104 / 104 Other: # Voids 200 Date of Last Bowel Movement 09/02/17 09/03/17 09/03/17 # Bowel Movements 0 # Incontinent Bowel Movements 1 2 Physical Exam: CONSTITUTIONAL/GENERAL: This is an elderly male, in no apparent distress. TUBES/LINES/DRAINS: Oxygen via NC, NG tube, PIV, Herring, splint wrist, podus boots. SKIN: Ecchymoses on upper extremities. Erythema right buttock. Skin temperature appropriate. Not diaphoretic. EYES: eyes closed. CARDIOVASCULAR: Regular rate and rhythm without murmurs, gallops, or rubs. No JVD. Peripheral pulses symmetric. RESPIRATORY/CHEST: Old well healed sternal scar. Clear to auscultation. GASTROINTESTINAL: Abdomen soft, nondistended. Bowel sounds present. GENITOURINARY: Without palpable bladder distension. Herring catheter in place. MUSCULOSKELETAL: Extremities without clubbing, cyanosis, or edema. No mottling or clubbing. NEUROLOGICAL: Asleep. Unresponsive to voice or exam. PSYCHIATRIC: Asleep. Diagnostic Tests Laboratory: Laboratory Results - last 72 hr 08/31/17 08/31/17 09/01/17 16:24 17:53 01:28 WBC RBC Hgb Hct MCV MCH MCHC RDW Plt Count MPV Neut % (Auto) Lymph % (Auto) [place] % (Auto) Eos % (Auto) Baso % (Auto) Neut # (Auto) Lymph # (Auto) [place] # (Auto) Eos # (Auto) Baso # (Auto) WBC Differential Differential Comment Sodium Potassium Chloride Carbon Dioxide Anion Gap BUN Creatinine Estimated GFR POC Glucose 69 124 H 121 H Random Glucose Calcium Urine Color Urine Clarity Urine pH Ur Specific [place] Urine Protein Urine Glucose (UA) Urine Ketones Urine Occult Blood Urine Nitrate Urine Bilirubin Urine Urobilinogen Ur Leukocyte Esterase Urine RBC Urine WBC Urine WBC Clumps Urine Bacteria Urine Mucus Urine Yeast Urine Eosinophils Random Vancomycin 09/01/17 09/01/17 09/01/17 05:38 08:32 10:00 WBC RBC Hgb Hct MCV MCH MCHC RDW Plt Count MPV Neut % (Auto) Lymph % (Auto) [place] % (Auto) Eos % (Auto) Baso % (Auto) Neut # (Auto) Lymph # (Auto) [place] # (Auto) Eos # (Auto) Baso # (Auto) WBC Differential Differential Comment Sodium Potassium Chloride Carbon Dioxide Anion Gap BUN Creatinine Estimated GFR POC Glucose 124 H 152 H Random Glucose Calcium Urine Color Urine Clarity Urine pH Ur Specific [place] Urine Protein Urine Glucose (UA) Urine Ketones Urine Occult Blood Urine Nitrate Urine Bilirubin Urine Urobilinogen Ur Leukocyte Esterase Urine RBC Urine WBC Urine WBC Clumps Urine Bacteria Urine Mucus Urine Yeast Urine Eosinophils Random Vancomycin 15.8 09/01/17 09/01/17 09/01/17 12:35 17:12 23:23 WBC RBC Hgb Hct MCV MCH MCHC RDW Plt Count MPV Neut % (Auto) Lymph % (Auto) [place] % (Auto) Eos % (Auto) Baso % (Auto) Neut # (Auto) Lymph # (Auto) [place] # (Auto) Eos # (Auto) Baso # (Auto) WBC Differential Differential Comment Sodium Potassium Chloride Carbon Dioxide Anion Gap BUN Creatinine Estimated GFR POC Glucose 186 H 138 H 137 H Random Glucose Calcium Urine Color Urine Clarity Urine pH Ur Specific [place] Urine Protein Urine Glucose (UA) Urine Ketones Urine Occult Blood Urine Nitrate Urine Bilirubin Urine Urobilinogen Ur Leukocyte Esterase Urine RBC Urine WBC Urine WBC Clumps Urine Bacteria Urine Mucus Urine Yeast Urine Eosinophils Random Vancomycin 09/02/17 09/02/17 09/02/17 03:10 03:10 05:45 WBC RBC Hgb Hct MCV MCH MCHC RDW Plt Count MPV Neut % (Auto) Lymph % (Auto) [place] % (Auto) Eos % (Auto) Baso % (Auto) Neut # (Auto) Lymph # (Auto) [place] # (Auto) Eos # (Auto) Baso # (Auto) WBC Differential Differential Comment Sodium Potassium Chloride Carbon Dioxide Anion Gap BUN Creatinine Estimated GFR POC Glucose 144 H Random Glucose Calcium Urine Color Yellow Urine Clarity Cloudy H Urine pH 5.0 Ur Specific [place] 1.031 Urine Protein 30 H Urine Glucose (UA) Negative Urine Ketones Negative Urine Occult Blood Moderate H Urine Nitrate Negative Urine Bilirubin Negative Urine Urobilinogen Less than 2 Ur Leukocyte Esterase Large H Urine RBC 42 H Urine WBC 134 H Urine WBC Clumps Occasional H Urine Bacteria Occasional H Urine Mucus Few H Urine Yeast Moderate H Urine Eosinophils None seen Random Vancomycin 09/02/17 09/02/17 09/02/17 06:00 06:00 12:40 WBC 20.3 H RBC 4.02 L Hgb 11.1 L D Hct 32.9 L MCV 81.9 MCH 27.6 MCHC 33.7 RDW 15.6 Plt Count 309 MPV 7.3 Neut % (Auto) 96.5 H Lymph % (Auto) 1.6 L [place] % (Auto) 1.9 Eos % (Auto) 0.0 Baso % (Auto) 0.0 Neut # (Auto) 19.5 H Lymph # (Auto) 0.3 L [place] # (Auto) 0.4 Eos # (Auto) 0.0 Baso # (Auto) 0.0 WBC Differential . Differential Comment Auto diff final Sodium 148 H Potassium 2.9 L* Chloride 112 H Carbon Dioxide 25.8 Anion Gap 10 BUN 18 Creatinine 1.56 H Estimated GFR 43 L POC Glucose 155 H Random Glucose 135 H Calcium 7.9 L Urine Color Urine Clarity Urine pH Ur Specific [place] Urine Protein Urine Glucose (UA) Urine Ketones Urine Occult Blood Urine Nitrate Urine Bilirubin Urine Urobilinogen Ur Leukocyte Esterase Urine RBC Urine WBC Urine WBC [place]umps Urine Bacteria Urine Mucus Urine Yeast Urine Eosinophils Random Vancomycin 09/02/17 09/02/17 09/03/17 18:40 21:22 06:30 WBC 18.8 H RBC 4.05 L Hgb 11.0 L Hct 33.3 L MCV 82.3 MCH 27.1 MCHC 33.0 RDW 15.4 Plt Count 289 MPV 7.5 Neut % (Auto) 95.4 H Lymph % (Auto) 1.7 L [place] % (Auto) 2.9 Eos % (Auto) 0.0 Baso % (Auto) 0.0 Neut # (Auto) 17.9 H Lymph # (Auto) 0.3 L [place] # (Auto) 0.5 Eos # (Auto) 0.0 Baso # (Auto) 0.0 WBC Differential . Differential Comment Auto diff final Sodium 146 H Potassium 4.0 D Chloride 113 H Carbon Dioxide 23.6 Anion Gap 9 BUN 20 H Creatinine 1.41 H Estimated GFR 49 L POC Glucose 115 H Random Glucose 133 H Calcium 8.3 L Urine Color Urine Clarity Urine pH Ur Specific [place] Urine Protein Urine Glucose (UA) Urine Ketones Urine Occult Blood Urine Nitrate Urine Bilirubin Urine Urobilinogen Ur Leukocyte Esterase Urine RBC Urine WBC Urine WBC Clumps Urine Bacteria Urine Mucus Urine Yeast Urine Eosinophils Random Vancomycin 09/03/17 09/03/17 09/03/17 06:30 06:54 11:29 WBC RBC Hgb Hct MCV MCH MCHC RDW Plt Count MPV Neut % (Auto) Lymph % (Auto) [place] % (Auto) Eos % (Auto) Baso % (Auto) Neut # (Auto) Lymph # (Auto) [place] # (Auto) Eos # (Auto) Baso # (Auto) WBC Differential Differential Comment Sodium 148 H Potassium 3.6 Chloride 114 H Carbon Dioxide 22.0 Anion Gap 12 BUN 21 H Creatinine 1.22 Estimated GFR 58 L POC Glucose 174 H 187 H Random Glucose 162 H Calcium 8.1 L Urine Color Urine Clarity Urine pH Ur Specific [place] Urine Protein Urine Glucose (UA) Urine Ketones Urine Occult Blood Urine Nitrate Urine Bilirubin Urine Urobilinogen Ur Leukocyte Esterase Urine RBC Urine WBC Urine WBC [place] Urine Bacteria Urine Mucus Urine Yeast Urine Eosinophils Random Vancomycin Result Diagrams: 09/03/17 06:30 09/03/17 06:30 Microbiology: Microbiology 09/01/17 19:57 Aerobic Blood Culture - Preliminary Blood - Peripheral No growth in 2 days Anaerobic Blood Culture - Preliminary No growth in 2 days 09/01/17 20:11 Aerobic Blood Culture - Preliminary Blood - Peripheral No growth in 2 days Anaerobic Blood Culture - Preliminary No growth in 2 days 08/30/17 06:15 Aerobic Blood Culture - Preliminary Blood - Peripheral No growth in 4 days Anaerobic Blood Culture - Preliminary No growth in 4 days 08/30/17 06:28 Aerobic Blood Culture - Preliminary Blood - Peripheral No growth in 4 days Anaerobic Blood Culture - Preliminary No growth in 4 days 08/30/17 02:40 Aerobic Blood Culture - Final Blood - Peripheral Amelie albicans Anaerobic Blood Culture - Preliminary No growth in 4 days 08/30/17 02:35 Aerobic Blood Culture - Preliminary Blood - Peripheral No growth in 4 days Anaerobic Blood Culture - Preliminary No growth in 4 days 08/30/17 04:10 Urine Culture - Final Catheterized Urine Amelie albicans Imaging: Chest CTA 08/30/17 03:47 CONCLUSION: 1. No evidence of pulmonary embolus. 2. 3 cm filling defect in the left atrium suspicious for thrombus. 3. Moderate severity bilateral lower lobe pulmonary consolidation/atelectasis and small pleural effusions. 4. 7 mm nodular density right upper lobe. Recommend six-month follow-up noncontrast chest CT. 5. Cholelithiasis. Abdomen/Bladder Ultrasound 09/02/17 00:00 CONCLUSION: Echogenic kidneys bilaterally compatible with medical renal disease. Bladder stone Chest X-Ray 09/03/17 00:00 CONCLUSION: 1. Limited exam with limited evaluation of the right upper lobe. 2. Small bilateral pleural effusions with associated lower lung zone airspace disease. 3. Cardiomegaly with positive fluid balance. Abdomen X-Ray 09/03/17 00:52 CONCLUSION: 1. Nasoenteric feeding tube tip in the proximal duodenum. Assessment and Plan Pertinent Non-Medical Issues: Psychosocial: . Retired from real estate. Spiritual: Unknown. Legal: Patient is not capacitated to make his own healthcare decisions, will not regain capacity. Cording to [place] statutes, healthcare proxy decision making falls to his spouse Dwight. Ethical issues impacting care: No known concerns at this time. Important Contacts: * Dwight Bhatia, HCP/: [phone] or [phone] Prognosis: Overall prognosis is poor given advanced dementia/Parkinson's disease. Hospice appropriate if goals are comfort oriented. Code Status: No Code DNR Plan: * Patient is not capacitated to make his own healthcare decisions, will not regain capacity. According to [place] statutes, healthcare proxy decision making falls to his spouse Dwight. * NO CODE * 09/03/17 - Spoke with via phone to provide medical update. She verbalizes some frustrations regarding his wound. She does not seem to like Harlan and is upset he was not brought to [facility] the [facility]. [facility] has refused transfer of patient. verbalizes she knows the patient is "going to ." She wants to see how he does for another 3-5 days with NG tube feeding. She does not thinks she would want to put him through a surgery to have a permanent feeding tube placed if it was not going to change his outcome. She does not be the one to "determine his fate." She states she knows "the inevitable." She is not ready to consider hospice services. Appreciates update. * SYMPTOMS: Dyspnea: On oxygen via mask. Patient unresponsive. Does not appear in any distress. Will continue to monitor. * Palliative care number provided. * Positive care will continue to follow throughout hospital course to assist with symptom management further clarification of medical treatment goals.
[2017-09-03] MEDS: Piperacil/Tazo 4.5 GM Premix 4.5 GM/100 ML BAG IV.SIG SCH ×4 (16:20→21:10)
--- NOTE | 2017-09-03 17:31 | P.PN ---
Subjective Interval history: He is somnolent . On O2 now at 4 L. On tube feeds and better hydrated. No response to commands. Physical Exam Vital signs: Vital Signs 09/02/17 20:00 09/02/17 20:59 09/02/17 21:00 Temperature 97.5 F L Pulse Rate 76 72 Respiratory Rate 16 18 Blood Pressure 118/64 Pulse Oximetry 100 100 100 09/03/17 00:00 09/03/17 04:00 09/03/17 08:00 Temperature 97.7 F 97.9 F 98.9 F Pulse Rate 77 69 77 Respiratory Rate 16 16 20 Blood Pressure 115/69 146/90 H 156/69 H Pulse Oximetry 100 99 99 09/03/17 10:11 09/03/17 12:00 09/03/17 16:00 Temperature 99.3 F 99.5 F Pulse Rate 71 91 H 82 Respiratory Rate 17 20 20 Blood Pressure 138/65 136/72 Pulse Oximetry 98 94 L 95 09/03/17 16:50 Temperature Pulse Rate Respiratory Rate Blood Pressure Pulse Oximetry 96 Intake & Output 09/02/17 09/03/17 09/03/17 18:59 06:59 18:59 Intake Total 1400 / 1400 100 / 100 1450 / 1450 Output Total 300 / 300 104 / 104 Balance 1400 / 1400 -200 / -200 1346 / 1346 Weight 69 kg Intake: IV 1400 / 1400 100 / 100 1450 / 1450 D5W/1/2NS + KCL 10 mEq Inj 1, 1000 / 1000 1000 / 1000 000 ML @ 45 mls/hr IV.CONT . [id number] MICHELLE Rx#:[id number] Diflucan 400 mg Premix Bag 200 200 / 200 ML @ 100 mls/hr IV.SIG Q24H MICHELLE Rx#:[id number] Mycamine Inj 100 MG In NS Inj 100 / 100 100 ML @ 100 mls/hr IV.SIG Q24H MICHELLE Rx#:[id number] Zosyn 2.25 GM Premix 50 ML @ 100 / 100 100 / 100 50 / 50 100 mls/hr IV.SIG Q6H MICHELLE Rx#: [id number] KCl 20 mEq Premix Inj 20 meq In 300 / 300 100 ml @ 50 mls/hr IV.SIG Q2H MICHELLE Rx#:[id number] Oral 0 / 0 Output: Urine Amount (Catheter) 300 / 300 Indwelling Temp Sensing 300 / 300 Catheter Gastric Drainage 104 / 104 Small Bore Feeding Tube 104 / 104 Other: # Voids 200 Date of Last Bowel Movement 09/02/17 09/03/17 09/03/17 # Bowel Movements 0 # Incontinent Bowel Movements 1 2 Narrative: Subjective: Patient in bed with severe Parkinsonism and not able to talk or follow any commands. Flat affects and not engaging. He is on rebreather mask at this time , and O2 sats are 96 and he doesn't appear in acute distress. Physical exam: GENERAL: Elderly male, cachectic, chronically ill appearance with shortness of breath saturating well while on a N/C O2 SKIN: cool and dry. Stage IV sacral decubitus ulcers present on admission. CARDIOVASCULAR: Regular rate and rhythm. RESPIRATORY: Bronchial, respiratory sounds. Basal crackles GASTROINTESTINAL: Abdomen soft, non-tender, nondistended. Hepatic and splenic margins not palpable. MUSCULOSKELETAL: Extremities without clubbing, cyanosis, or edema. No obvious deformities. NEUROLOGICAL: Awake , lethargic. Nonverbal doesn't follow commands. - Urinary Catheter Management Indwelling Temp Sensing Catheter Cath placed during this visit: no Reason for continuing: Acute urinary retention Results - Labs CBC & Chem 7: 09/03/17 06:30 09/03/17 06:30 Laboratory Results - last 24 hr 09/02/17 09/02/17 09/03/17 18:40 21:22 06:30 WBC 18.8 H RBC 4.05 L Hgb 11.0 L Hct 33.3 L MCV 82.3 MCH 27.1 MCHC 33.0 RDW 15.4 Plt Count 289 MPV 7.5 Neut % (Auto) 95.4 H Lymph % (Auto) 1.7 L [place] % (Auto) 2.9 Eos % (Auto) 0.0 Baso % (Auto) 0.0 Neut # (Auto) 17.9 H Lymph # (Auto) 0.3 L [place] # (Auto) 0.5 Eos # (Auto) 0.0 Baso # (Auto) 0.0 WBC Differential . Differential Comment Auto diff final Sodium 146 H Potassium 4.0 D Chloride 113 H Carbon Dioxide 23.6 Anion Gap 9 BUN 20 H Creatinine 1.41 H Estimated GFR 49 L POC Glucose 115 H Random Glucose 133 H Calcium 8.3 L 09/03/17 09/03/17 09/03/17 06:30 06:54 11:29 WBC RBC Hgb Hct MCV MCH MCHC RDW Plt Count MPV Neut % (Auto) Lymph % (Auto) [place] % (Auto) Eos % (Auto) Baso % (Auto) Neut # (Auto) Lymph # (Auto) [place] # (Auto) Eos # (Auto) Baso # (Auto) WBC Differential Differential Comment Sodium 148 H Potassium 3.6 Chloride 114 H Carbon Dioxide 22.0 Anion Gap 12 BUN 21 H Creatinine 1.22 Estimated GFR 58 L POC Glucose 174 H 187 H Random Glucose 162 H Calcium 8.1 L 09/03/17 16:26 WBC RBC Hgb Hct MCV MCH MCHC RDW Plt Count MPV Neut % (Auto) Lymph % (Auto) [place] % (Auto) Eos % (Auto) Baso % (Auto) Neut # (Auto) Lymph # (Auto) [place] # (Auto) Eos # (Auto) Baso # (Auto) WBC Differential Differential Comment Sodium Potassium Chloride Carbon Dioxide Anion Gap BUN Creatinine Estimated GFR POC Glucose 186 H Random Glucose Calcium Microbiology 09/01/17 19:57 Blood - Peripheral Aerobic Blood Culture - Preliminary No growth in 2 days 09/01/17 19:57 Blood - Peripheral Anaerobic Blood Culture - Preliminary No growth in 2 days 09/01/17 20:11 Blood - Peripheral Aerobic Blood Culture - Preliminary No growth in 2 days 09/01/17 20:11 Blood - Peripheral Anaerobic Blood Culture - Preliminary No growth in 2 days 08/30/17 06:15 Blood - Peripheral Aerobic Blood Culture - Preliminary No growth in 4 days 08/30/17 06:15 Blood - Peripheral Anaerobic Blood Culture - Preliminary No growth in 4 days 08/30/17 06:28 Blood - Peripheral Aerobic Blood Culture - Preliminary No growth in 4 days 08/30/17 06:28 Blood - Peripheral Anaerobic Blood Culture - Preliminary No growth in 4 days 08/30/17 02:40 Blood - Peripheral Aerobic Blood Culture - Final Amelie albicans 08/30/17 02:40 Blood - Peripheral Anaerobic Blood Culture - Preliminary No growth in 4 days 08/30/17 02:35 Blood - Peripheral Aerobic Blood Culture - Preliminary No growth in 4 days 08/30/17 02:35 Blood - Peripheral Anaerobic Blood Culture - Preliminary No growth in 4 days - Imaging Impressions Chest X-Ray 09/03/17 00:00 CONCLUSION: 1. Limited exam with limited evaluation of the right upper lobe. 2. Small bilateral pleural effusions with associated lower lung zone airspace disease. 3. Cardiomegaly with positive fluid balance. Abdomen X-Ray 09/03/17 00:52 CONCLUSION: 1. Nasoenteric feeding tube tip in the proximal duodenum. Assessment and Plan - Assessment (1) Respiratory failure with hypercapnia Code(s): J96.92 - Respiratory failure, unspecified with hypercapnia Status: Acute Plan: Will use BiPAP if possible. O2 3 L N/C (2) Respiratory failure with hypoxia and hypercapnia Code(s): J96.91 - Respiratory failure, unspecified with hypoxia; J96.92 - Respiratory failure, unspecified with hypercapnia Status: Acute Plan: O2 at 3 L. Duonebs qid. Add Symbicort 160/4.5 mcg , 2puffs BID (3) Pneumonia due to aerobic bacteria Code(s): J15.6 - Pneumonia due to other Gram-negative bacteria Status: Acute Plan: Cont Antibiotics per ID (4) Dementia Code(s): F03.90 - Unspecified dementia without behavioral disturbance Status: Acute (5) Decubitus skin ulcer Code(s): L89.90 - Pressure ulcer of unspecified site, unspecified stage Status : Acute (6) Pneumonia Code(s): J18.9 - Pneumonia, unspecified organism Status: Acute (7) Bacterial UTI Code(s): N39.0 - Urinary tract infection, site not specified; A49.9 - Bacterial infection, unspecified Status: Acute (8) Hx of prosthetic heart valve Code(s): Z95.2 - Presence of prosthetic heart valve Status: Acute - Plan 1. Cont antibiotics / Zosyn . 2. Duoneb nebs qid. 3. Use BIPAP at 15/6, FIO2 30 % if possible 4. Cont Solumedrol 40 mg BID 5. Continue tube feeds at 50 CC 6. CBC,BMP , in am 7. DNR Status. (4) Dementia Qualifiers: Dementia type: vascular dementia (5) Decubitus skin ulcer Qualifiers: Pressure ulcer stage: stage 3 (6) Pneumonia Qualifiers: Pneumonia type: aspiration pneumonia Laterality: unspecified laterality Lung location: unspecified part of lung Qualified Code(s): J18.9 - Pneumonia, unspecified organism
--- NOTE | 2017-09-03 18:13 | P.PN ---
Physical Exam Vital signs: Vital Signs 09/02/17 20:00 09/02/17 20:59 09/02/17 21:00 Temperature 97.5 F L Pulse Rate 76 72 Respiratory Rate 16 18 Blood Pressure 118/64 Pulse Oximetry 100 100 100 09/03/17 00:00 09/03/17 04:00 09/03/17 08:00 Temperature 97.7 F 97.9 F 98.9 F Pulse Rate 77 69 77 Respiratory Rate 16 16 20 Blood Pressure 115/69 146/90 H 156/69 H Pulse Oximetry 100 99 99 09/03/17 10:11 09/03/17 12:00 09/03/17 16:00 Temperature 99.3 F 99.5 F Pulse Rate 71 91 H 82 Respiratory Rate 17 20 20 Blood Pressure 138/65 136/72 Pulse Oximetry 98 94 L 95 09/03/17 16:50 Temperature Pulse Rate Respiratory Rate Blood Pressure Pulse Oximetry 96 Intake & Output 09/02/17 09/03/17 09/03/17 18:59 06:59 18:59 Intake Total 1400 / 1400 100 / 100 1550 / 1550 Output Total 300 / 300 104 / 104 Balance 1400 / 1400 -200 / -200 1446 / 1446 Weight 69 kg Intake: IV 1400 / 1400 100 / 100 1550 / 1550 D5W/1/2NS + KCL 10 mEq Inj 1, 1000 / 1000 1000 / 1000 000 ML @ 45 mls/hr IV.CONT . [id number] MICHELLE Rx#:[id number] Diflucan 400 mg Premix Bag 200 200 / 200 ML @ 100 mls/hr IV.SIG Q24H MICHELLE Rx#:[id number] Mycamine Inj 100 MG In NS Inj 100 / 100 100 ML @ 100 mls/hr IV.SIG Q24H MICHELLE Rx#:[id number] Zosyn 2.25 GM Premix 50 ML @ 100 / 100 100 / 100 50 / 50 100 mls/hr IV.SIG Q6H MICHELLE Rx#: [id number] Zosyn 4.5 GM Premix 4.5 gm In 100 / 100 100 ml @ 200 mls/hr IV.SIG Q6H MICHELLE Rx#:[id number] KCl 20 mEq Premix Inj 20 meq In 300 / 300 100 ml @ 50 mls/hr IV.SIG Q2H MICHELLE Rx#:[id number] Oral 0 / 0 Output: Urine Amount (Catheter) 300 / 300 Indwelling Temp Sensing 300 / 300 Catheter Gastric Drainage 104 / 104 Small Bore Feeding Tube 104 / 104 Other: # Voids 200 Date of Last Bowel Movement 09/02/17 09/03/17 09/03/17 # Bowel Movements 0 # Incontinent Bowel Movements 1 2 Narrative: Subjective: Patient in bed with severe Parkinsonism and not able to talk or follow any commands. Flat affects and not engaging. bottom bleacher at bedside did shave the patient . Patients birthday is tomorrow. No events overnight. He is on rebreather mask at this time, and O2 sats are 96 and he doesn't appear in acute distress. Patient failed swallow eval persistently. agrees to have Dubhoff and start feedings however no shelter PEG. Physical exam: GENERAL: Elderly male, cachectic, chronically ill appearance with shortness of breath saturating well while on nonrebreather mask at this time. Nonverbal. SKIN: Warm and dry. Stage IV sacral decubitus ulcers present on admission. CARDIOVASCULAR: Regular rate and rhythm. RESPIRATORY: Bronchial, course respiratory sounds. No wheezing. GASTROINTESTINAL: Abdomen soft, non-tender, nondistended. Hepatic and splenic margins not palpable. MUSCULOSKELETAL: Extremities without clubbing, cyanosis, or edema. No obvious deformities. NEUROLOGICAL: Awake and alert. No obvious cranial nerve deficits. Nonverbal doesn't follow commands. Assessment and Plan Acute respiratory failure patient placed on BiPAP as he was dessating in 80s. Sepsis with (tachycardia, tachypnea, leukocytosis, source of infection possible pneumonia and UTI, sacral decubitus ulcers stage IV on admission) Stage 4 sacral decubitus ulcers, present on admission Atrial fibrillation. Elevated BNP possible CHF unknown EF. Will do 2D ECHO Advanced Parkinson's, bedbound Small right pleural effusion 7 mm nodular density right upper lobe of lung seen by CT recommend follow-up noncontrast CT chest in 6 months History of 3 cm thrombus in the left atrium Cholelithiasis DNR/DNI CODE STATUS Dysphagia NPO failed swallow eval . Place Dubhoff and start feedings, appointment coordinator consulted for Obtain blood cultures, urine cultures, wound cultures, follow-up results Start IV antibiotics Zosyn and vancomycin Duo nebs, steroids, Lasix by 1 time IV 20 mg. Elevated BNP poss CHF with exacerbation. Will do 2D ECHO Monitor vital signs. Monitor kidney function Trend white blood cells ABG. Maintain oxygen saturation more than 94.Consult pulm if need. Restart home medications as appropriate Consult his neurology Dr Elliott Consult wound care Consult palliative care for goals of care and hospice as had discussions with hospice while at [facility]. Appreciate recommendations. wants hospice to follow but did not decide for hospice yet Continue recommendations for wound care per wound care recommendations. CODE STATUS: DNR/ DNI Discussed with the nurse, case management CM is following for possible transfer to [facility] as per request. However [facility] will not take patient. Discussed with the at bedside and she is not happy with wound care and with wound recommendations. I spoke with Deborah from wound care to reevaluate patient. Per discussion with the regarding goals of care: she is not considering hospice at this time. Patient birthday is tomorrow [birth year]. she agrees to NG tube and and doesn't consider PEG tube. Wants to see how he does for the next 3 -5 days. - Urinary Catheter Management Indwelling Temp Sensing Catheter Cath placed during this visit: no Reason for continuing: Acute urinary retention Results - Labs CBC & Chem 7: 09/03/17 06:30 09/03/17 06:30 Laboratory Results - last 24 hr 09/02/17 09/02/17 09/03/17 18:40 21:22 06:30 WBC 18.8 H RBC 4.05 L Hgb 11.0 L Hct 33.3 L MCV 82.3 MCH 27.1 MCHC 33.0 RDW 15.4 Plt Count 289 MPV 7.5 Neut % (Auto) 95.4 H Lymph % (Auto) 1.7 L [place] % (Auto) 2.9 Eos % (Auto) 0.0 Baso % (Auto) 0.0 Neut # (Auto) 17.9 H Lymph # (Auto) 0.3 L [place] # (Auto) 0.5 Eos # (Auto) 0.0 Baso # (Auto) 0.0 WBC Differential . Differential Comment Auto diff final Sodium 146 H Potassium 4.0 D Chloride 113 H Carbon Dioxide 23.6 Anion Gap 9 BUN 20 H Creatinine 1.41 H Estimated GFR 49 L POC Glucose 115 H Random Glucose 133 H Calcium 8.3 L 09/03/17 09/03/17 09/03/17 06:30 06:54 11:29 WBC RBC Hgb Hct MCV MCH MCHC RDW Plt Count MPV Neut % (Auto) Lymph % (Auto) [place] % (Auto) Eos % (Auto) Baso % (Auto) Neut # (Auto) Lymph # (Auto) [place] # (Auto) Eos # (Auto) Baso # (Auto) WBC Differential Differential Comment Sodium 148 H Potassium 3.6 Chloride 114 H Carbon Dioxide 22.0 Anion Gap 12 BUN 21 H Creatinine 1.22 Estimated GFR 58 L POC Glucose 174 H 187 H Random Glucose 162 H Calcium 8.1 L 09/03/17 16:26 WBC RBC Hgb Hct MCV MCH MCHC RDW Plt Count MPV Neut % (Auto) Lymph % (Auto) [place] % (Auto) Eos % (Auto) Baso % (Auto) Neut # (Auto) Lymph # (Auto) [place] # (Auto) Eos # (Auto) Baso # (Auto) WBC Differential Differential Comment Sodium Potassium Chloride Carbon Dioxide Anion Gap BUN Creatinine Estimated GFR POC Glucose 186 H Random Glucose Calcium Microbiology 09/01/17 19:57 Blood - Peripheral Aerobic Blood Culture - Preliminary No growth in 2 days 09/01/17 19:57 Blood - Peripheral Anaerobic Blood Culture - Preliminary No growth in 2 days 09/01/17 20:11 Blood - Peripheral Aerobic Blood Culture - Preliminary No growth in 2 days 09/01/17 20:11 Blood - Peripheral Anaerobic Blood Culture - Preliminary No growth in 2 days 08/30/17 06:15 Blood - Peripheral Aerobic Blood Culture - Preliminary No growth in 4 days 08/30/17 06:15 Blood - Peripheral Anaerobic Blood Culture - Preliminary No growth in 4 days 08/30/17 06:28 Blood - Peripheral Aerobic Blood Culture - Preliminary No growth in 4 days 08/30/17 06:28 Blood - Peripheral Anaerobic Blood Culture - Preliminary No growth in 4 days 08/30/17 02:40 Blood - Peripheral Aerobic Blood Culture - Final Amelie albicans 08/30/17 02:40 Blood - Peripheral Anaerobic Blood Culture - Preliminary No growth in 4 days 08/30/17 02:35 Blood - Peripheral Aerobic Blood Culture - Preliminary No growth in 4 days 08/30/17 02:35 Blood - Peripheral Anaerobic Blood Culture - Preliminary No growth in 4 days - Imaging Impressions Chest X-Ray 09/03/17 00:00 CONCLUSION: 1. Limited exam with limited evaluation of the right upper lobe. 2. Small bilateral pleural effusions with associated lower lung zone airspace disease. 3. Cardiomegaly with positive fluid balance. Abdomen X-Ray 09/03/17 00:52 CONCLUSION: 1. Nasoenteric feeding tube tip in the proximal duodenum. Assessment and Plan - Plan Acute respiratory failure patient placed on BiPAP as he was dessating in 80s. Sepsis with (tachycardia, tachypnea, leukocytosis, source of infection possible pneumonia and UTI, sacral decubitus ulcers stage IV on admission) Stage 4 sacral decubitus ulcers Atrial fibrillation. Elevated BNP possible CHF unknown EF. Will do 2D ECHO Advanced Parkinson's, bedbound Small right pleural effusion 7 mm nodular density right upper lobe of lung seen by CT recommend follow-up noncontrast CT chest in 6 months History of 3 cm thrombus in the left atrium Cholelithiasis DNR/DNI CODE STATUS Obtain blood cultures, urine cultures, wound cultures, follow-up results Start IV antibiotics Zosyn and vancomycin Duo nebs, steroids, Lasix by 1 time IV 20 mg. Elevated BNP poss CHF with exacerbation. Will do 2D ECHO Monitor vital signs. Monitor kidney function Trend white blood cells ABG. Maintain oxygen saturation more than 94.Consult pulm if need. Restart home medications as appropriate Consult his neurology Dr Elliott Consult wound care Consult palliative care for goals of care and hospice as had discussions with hospice while at [facility] CODE STATUS: DNR/ DNI Discussed at length with his , nurse, case management CM is following for possible transfer to [facility] as per request.
[2017-09-04] MEDS: Heparin - SQ 10,000 UNITS/ML Vial SQ SCH ×2 (04:59→17:05)
[2017-09-04] MEDS: Piperacil/Tazo 4.5 GM Premix 4.5 GM/100 ML BAG IV.SIG SCH ×4 (04:59→21:50)
[2017-09-04 07:31] LABS: Baso % (Auto) 0.1 % (0.0-2.0); Hematocrit 34.3 % (39.0-51.0); Hemoglobin 11.2 gm/dL (13.0-17.0); Lymph # (Auto) 0.5 th/mm3 (1.0-4.8); Lymph % (Auto) 2.1 % (9.0-44.0); Mean Corpuscular HGB Conc 32.7 % (32.0-36.0); Mean Corpuscular Hemoglobin 27.3 pg (27.0-34.0); Mean Corpuscular Volume 83.4 fL (80.0-100.0); Mean Platelet Volume 7.7 fL (7.0-11.0); Mono # (Auto) 0.8 th/mm3 (0.0-0.9); Mono % (Auto) 3.3 % (0.0-8.0); Neut # (Auto) 22.1 th/mm3 (1.8-7.7); Neut % (Auto) 94.5 % (16.0-70.0); Platelet Count 294 th/mm3 (150-450); Red Blood Count 4.12 mil/mm3 (4.50-5.90); Red Cell Distribution Width 15.9 % (11.6-17.2); White Blood Count 23.4 th/mm3 (4.0-11.0)
[2017-09-04 07:51] LABS: Potassium 4.2 meq/L (3.5-5.1)
[2017-09-04] MEDS: MethylPREDNISolone Sod Succinate Inj 40 MG/ML Vial IV.PUSH SCH ×2 (08:29→21:50)
[2017-09-04] MEDS: Senna/Docusate Sodium 8.6/50 MG Tablet PO SCH ×2 (08:30→21:55)
[2017-09-04] MEDS: Lisinopril 10 MG Tablet PO SCH (08:31)
[2017-09-04] MEDS: amLODIPine 5 MG Tablet PO SCH (08:31)
[2017-09-04] MEDS: Collagenase Oint 30 GM Tube TOPICAL SCH (08:33)
[2017-09-04 10:22] LABS: Acanthocytes Occ; Platelet Estimate Normal (Normal); Platelet Morphology Normal (Normal)
[2017-09-04 12:19] LABS: ABG PCO2 30 mmHg (38-42); ABG PO2 62 mmHg (61-120)
--- NOTE | 2017-09-04 13:05 | XR ---
EXAM DATE: 09/04/2017 12:30 PM EDT AGE/SEX: 77 years / Male INDICATIONS: CHF. Short of breath. CLINICAL DATA: This is the patient's subsequent encounter. Patient reports that signs and symptoms h ave been present for 4 - 6 days and indicates a pain score of Nonresponsive. MEDICAL/SURGICAL HISTORY: . Hypertension. Stroke. Carcinoma, prostatic. Dementia. Parkinson's . Heart valve replacement. COMPARISON: [facility] [place], CHEST 1V SINGLE AP, 09/03/2017. . FINDINGS: There is dense consolidation in the lungs bilaterally, right greater than left. Bilateral effusions p resent. Patient's head partially obscures the upper right hemithorax. Feeding tube is seen entering t he stomach. There is previous sternotomy and cardiac valve replacement overall findings not significa ntly changed since September 03. CONCLUSION: Suboptimal exam. Bilateral mostly basilar lung consolidation and pleural effusions appear roughly sim ilar to September 03. Electronically signed by: Elliott Obrien MD 09/04/2017 1:04 PM EDT
[2017-09-04] MEDS: KCL 10 mEq/D5W/NaCl 0.45% Inj 1,000 ML IV.CONT SCH (17:06)
--- NOTE | 2017-09-04 17:50 | P.PN ---
Subjective Interval history: He is worse today with low O2 sats and now on a NRB mask. Chest Xray showed an extensive right lung infiltrate. Poorly responsive. is here and would not want Intubation or CPR. Physical Exam Vital signs: Vital Signs 09/03/17 20:30 09/03/17 22:00 09/04/17 00:23 Temperature 98.9 F 96.9 F L Pulse Rate 94 H 83 Respiratory Rate 21 21 Blood Pressure 146/78 H 162/83 H Pulse Oximetry 96 97 96 09/04/17 04:10 09/04/17 08:00 09/04/17 11:45 Temperature 98.2 F 99.8 F H 100.7 F H Pulse Rate 100 H 114 H 100 H Respiratory Rate 22 18 28 H Blood Pressure 165/89 H 161/88 H 129/91 H Pulse Oximetry 97 93 L 89 L 09/04/17 11:50 09/04/17 11:55 09/04/17 12:00 Temperature 100.7 F H 100.7 F H 101.1 F H Pulse Rate 115 H 107 H 109 H Respiratory Rate 28 H 19 Blood Pressure 166/90 H 153/85 H 152/82 H Pulse Oximetry 88 L 89 L 90 L 09/04/17 12:15 09/04/17 16:00 Temperature 98.0 F Pulse Rate 95 H Respiratory Rate 18 Blood Pressure 151/84 H Pulse Oximetry 96 100 Intake & Output 09/03/17 09/04/17 09/04/17 18:59 06:59 18:59 Intake Total 1850 / 1850 1550 / 1550 200 / 200 Output Total 104 / 104 1200 / 1200 Balance 1746 / 1746 350 / 350 200 / 200 Weight 69 kg Intake: IV 1850 / 1850 1550 / 1550 200 / 200 D5W/1/2NS + KCL 10 mEq Inj 1, 1000 / 1000 1000 / 1000 000 ML @ 45 mls/hr IV.CONT . [id number] MICHELLE Rx#:[id number] Diflucan 400 mg Premix Bag 200 400 / 400 ML @ 100 mls/hr IV.SIG Q24H MICHELLE Rx#:[id number] Mycamine Inj 100 MG In NS Inj 200 / 200 100 ML @ 100 mls/hr IV.SIG Q24H MICHELLE Rx#:[id number] Zosyn 2.25 GM Premix 50 ML @ 50 / 50 100 mls/hr IV.SIG Q6H MICHELLE Rx#: [id number] Zosyn 4.5 GM Premix 4.5 gm In 100 / 100 200 / 200 200 / 200 100 ml @ 200 mls/hr IV.SIG Q6H MICHELLE Rx#:[id number] Output: Urine Amount (Catheter) 1200 / 1200 Indwelling Temp Sensing 1200 / 1200 Catheter Gastric Drainage 104 / 104 Small Bore Feeding Tube 104 / 104 Other: Date of Last Bowel Movement 09/03/17 09/03/17 Narrative: Subjective: Patient in bed with severe Parkinsonism and not able to talk or follow any commands. Flat affects and not engaging. roller printing supervisor at bedside did shave the patient . Patients birthday is tomorrow. No events overnight. He is on rebreather mask at this time, and O2 sats are 96 and he doesn't appear in acute distress. Patient failed swallow eval persistently. agrees to have Dubhoff and start feedings however no terminal block assembler PEG. Physical exam: GENERAL: Elderly male, cachectic, chronically ill appearance with shortness of breath saturating well while on nonrebreather mask at this time. Nonverbal. SKIN: Warm and dry. Stage IV sacral decubitus ulcers present on admission. CARDIOVASCULAR: Regular rate and rhythm. RESPIRATORY: Bronchial, course respiratory sounds. No wheezing. GASTROINTESTINAL: Abdomen soft, non-tender, nondistended. Hepatic and splenic margins not palpable. MUSCULOSKELETAL: Extremities without clubbing, cyanosis, or edema. No obvious deformities. NEUROLOGICAL: Awake and alert. No obvious cranial nerve deficits. Nonverbal doesn't follow commands. - Constitutional obtunded - Routine HEENT Exam Head: Present: normocephalic Eye: Present: scleral injection ENT: Present: mucous membranes dry, external ear normal - Routine Respiratory Exam Present: accessory muscle use, respiratory distress, wheezes, crackles, distant breath sounds, diminished air movement - Routine Cardiovascular Exam Present: tachycardia, irregular rhythm - Routine Abdominal Exam Present: soft, distended - Routine Extremities Exam Present: cyanosis - Routine Skin Exam Present: cyanosis - Routine Neurological Exam Present: altered mental status, asterixis - Detailed Neurological Exam: Coma Scale Eye Opening: Spontaneous - Routine Psychiatric Exam Present: unable to assess - Urinary Catheter Management Indwelling Temp Sensing Catheter Cath placed during this visit: no Reason for continuing: Acute urinary retention Results - Labs CBC & Chem 7: 09/04/17 05:49 09/04/17 05:49 Laboratory Results - last 24 hr 09/03/17 09/04/17 09/04/17 21:03 05:49 05:49 WBC 23.4 H RBC 4.12 L Hgb 11.2 L Hct 34.3 L MCV 83.4 MCH 27.3 MCHC 32.7 RDW 15.9 Plt Count 294 MPV 7.7 Prelim Diff (Auto) Slide review pending Neut % (Auto) 94.5 H Lymph % (Auto) 2.1 L [place] % (Auto) 3.3 Eos % (Auto) 0.0 Baso % (Auto) 0.1 Neut # (Auto) 22.1 H Lymph # (Auto) 0.5 L [place] # (Auto) 0.8 Eos # (Auto) 0.0 Baso # (Auto) 0.0 WBC Differential . Diff Scan Auto diff confirmed Differential Comment . Platelet Estimate Normal Platelet Morphology Normal Acanthocytes (Spur) Occ H Puncture Site Patient Temperature O2 Saturation ABG pH ABG pCO2 ABG pO2 ABG HCO3 ABG O2 Content ABG Base Excess ABG Methemoglobin Hemoglobin Carboxyhemoglobin O2 Delivery Device Liter Flow Inspired O2 Critical Value Sodium 149 H Potassium 4.2 Chloride 115 H Carbon Dioxide 22.0 Anion Gap 12 BUN 31 H Creatinine 1.18 Estimated GFR 60 L POC Glucose 188 H Random Glucose 156 H Calcium 8.0 L 09/04/17 09/04/17 09/04/17 07:10 11:23 11:55 WBC RBC Hgb Hct MCV MCH MCHC RDW Plt Count MPV Prelim Diff (Auto) Neut % (Auto) Lymph % (Auto) [place] % (Auto) Eos % (Auto) Baso % (Auto) Neut # (Auto) Lymph # (Auto) [place] # (Auto) Eos # (Auto) Baso # (Auto) WBC Differential Diff Scan Differential Comment Platelet Estimate Platelet Morphology Acanthocytes (Spur) Puncture Site Right brachial Patient Temperature 98.6 O2 Saturation 91 ABG pH 7.49 H ABG pCO2 30 L ABG pO2 62 ABG HCO3 23 ABG O2 Content 14.5 ABG Base Excess 0.0 ABG Methemoglobin 0.9 Hemoglobin 11.3 L Carboxyhemoglobin 1.3 O2 Delivery Device Nonrebreather Liter Flow 15.00 Inspired O2 100 Critical Value No Sodium Potassium Chloride Carbon Dioxide Anion Gap BUN Creatinine Estimated GFR POC Glucose 164 H 149 H Random Glucose Calcium 09/04/17 16:23 WBC RBC Hgb Hct MCV MCH MCHC RDW Plt Count MPV Prelim Diff (Auto) Neut % (Auto) Lymph % (Auto) [place] % (Auto) Eos % (Auto) Baso % (Auto) Neut # (Auto) Lymph # (Auto) [place] # (Auto) Eos # (Auto) Baso # (Auto) WBC Differential Diff Scan Differential Comment Platelet Estimate Platelet Morphology Acanthocytes (Spur) Puncture Site Patient Temperature O2 Saturation ABG pH ABG pCO2 ABG pO2 ABG HCO3 ABG O2 Content ABG Base Excess ABG Methemoglobin Hemoglobin Carboxyhemoglobin O2 Delivery Device Liter Flow Inspired O2 Critical Value Sodium Potassium Chloride Carbon Dioxide Anion Gap BUN Creatinine Estimated GFR POC Glucose 127 H Random Glucose Calcium Microbiology 09/01/17 19:57 Blood - Peripheral Aerobic Blood Culture - Preliminary No growth in 3 days 09/01/17 19:57 Blood - Peripheral Anaerobic Blood Culture - Preliminary No growth in 3 days 09/01/17 20:11 Blood - Peripheral Aerobic Blood Culture - Preliminary No growth in 3 days 09/01/17 20:11 Blood - Peripheral Anaerobic Blood Culture - Preliminary No growth in 3 days 08/30/17 06:15 Blood - Peripheral Aerobic Blood Culture - Final No growth in 5 days 08/30/17 06:15 Blood - Peripheral Anaerobic Blood Culture - Final No growth in 5 days 08/30/17 06:28 Blood - Peripheral Aerobic Blood Culture - Final No growth in 5 days 08/30/17 06:28 Blood - Peripheral Anaerobic Blood Culture - Final No growth in 5 days 08/30/17 02:40 Blood - Peripheral Aerobic Blood Culture - Final Amelie albicans 08/30/17 02:40 Blood - Peripheral Anaerobic Blood Culture - Final No growth in 5 days 08/30/17 02:35 Blood - Peripheral Aerobic Blood Culture - Final No growth in 5 days 08/30/17 02:35 Blood - Peripheral Anaerobic Blood Culture - Final No growth in 5 days - Imaging Impressions Chest X-Ray 09/04/17 12:03 CONCLUSION: Suboptimal exam. Bilateral mostly basilar lung consolidation and pleural effusions appear roughly similar to September 03. Assessment and Plan - Assessment (1) Respiratory failure with hypercapnia Code(s): J96.92 - Respiratory failure, unspecified with hypercapnia Status: Acute Plan: Place on BiPAP 15/8, FIo2 50% Duonebs qid. Mucomyst 10 % nebs qid. (2) Respiratory failure with hypoxia and hypercapnia Code(s): J96.91 - Respiratory failure, unspecified with hypoxia; J96.92 - Respiratory failure, unspecified with hypercapnia Status: Acute Plan: Cont BiPAP 15/8 CM FIO2 50 % (3) Pneumonia due to aerobic bacteria Code(s): J15.6 - Pneumonia due to other Gram-negative bacteria Status: Acute (4) Dementia Code(s): F03.90 - Unspecified dementia without behavioral disturbance Status: Acute (5) Decubitus skin ulcer Code(s): L89.90 - Pressure ulcer of unspecified site, unspecified stage Status : Acute (6) Pneumonia Code(s): J18.9 - Pneumonia, unspecified organism Status: Acute (7) Bacterial UTI Code(s): N39.0 - Urinary tract infection, site not specified; A49.9 - Bacterial infection, unspecified Status: Acute Plan: Antibiotics per ID (8) Hx of prosthetic heart valve Code(s): Z95.2 - Presence of prosthetic heart valve Status: Acute - Plan 1. Cont antibiotics / Zosyn , Flagyl. 2. Duoneb nebs qid. 3. Use BIPAP at 15/6, FIO2 30 % if possible 4. Cont Solumedrol 40 mg BID 5. Continue tube feeds at 50 CC 6. Add Mucomyst 10 % solution 2 CC QID Nebs 7. DNR Status. 8. Discussed at length with here. (4) Dementia Qualifiers: Dementia type: vascular dementia (5) Decubitus skin ulcer Qualifiers: Pressure ulcer stage: stage 3 (6) Pneumonia Qualifiers: Pneumonia type: aspiration pneumonia Laterality: unspecified laterality Lung location: unspecified part of lung Qualified Code(s): J18.9 - Pneumonia, unspecified organism
--- NOTE | 2017-09-04 18:07 | P.PN ---
Subjective Interval history: Follow-up for Parkinson's disease, atrial fibrillation, likely recurrent aspiration. Patient is resting in bed. However a rapid response (Halicat) was called due to significant respiratory decline today. I went to evaluate patient along with clinical courier. Patient is requiring nonrebreather 100% oxygen to maintain saturation in 90-92 percent. We stopped patients feeding through NG tube and stopped his fluid as well. We discussed with patient's who was contemplating hospice choice before today. She expressed understanding of her 's situation. She decided to consider hospice during this admission. Physical Exam Vital signs: Vital Signs 09/03/17 20:30 09/03/17 22:00 09/04/17 00:23 Temperature 98.9 F 96.9 F L Pulse Rate 94 H 83 Respiratory Rate 21 21 Blood Pressure 146/78 H 162/83 H Pulse Oximetry 96 97 96 09/04/17 04:10 09/04/17 08:00 09/04/17 11:45 Temperature 98.2 F 99.8 F H 100.7 F H Pulse Rate 100 H 114 H 100 H Respiratory Rate 22 18 28 H Blood Pressure 165/89 H 161/88 H 129/91 H Pulse Oximetry 97 93 L 89 L 09/04/17 11:50 09/04/17 11:55 09/04/17 12:00 Temperature 100.7 F H 100.7 F H 101.1 F H Pulse Rate 115 H 107 H 109 H Respiratory Rate 28 H 19 Blood Pressure 166/90 H 153/85 H 152/82 H Pulse Oximetry 88 L 89 L 90 L 09/04/17 12:15 09/04/17 16:00 Temperature 98.0 F Pulse Rate 95 H Respiratory Rate 18 Blood Pressure 151/84 H Pulse Oximetry 96 100 Intake & Output 09/03/17 09/04/17 09/04/17 18:59 06:59 18:59 Intake Total 1850 / 1850 1550 / 1550 200 / 200 Output Total 104 / 104 1200 / 1200 Balance 1746 / 1746 350 / 350 200 / 200 Weight 69 kg Intake: IV 1850 / 1850 1550 / 1550 200 / 200 D5W/1/2NS + KCL 10 mEq Inj 1, 1000 / 1000 1000 / 1000 000 ML @ 45 mls/hr IV.CONT . [id number] [facility] Rx#:[id number] Diflucan 400 mg Premix Bag 200 400 / 400 ML @ 100 mls/hr IV.SIG Q24H [facility] Rx#:[id number] Mycamine Inj 100 MG In NS Inj 200 / 200 100 ML @ 100 mls/hr IV.SIG Q24H [facility] Rx#:[id number] Zosyn 2.25 GM Premix 50 ML @ 50 / 50 100 mls/hr IV.SIG Q6H [facility] Rx#: [id number] Zosyn 4.5 GM Premix 4.5 gm In 100 / 100 200 / 200 200 / 200 100 ml @ 200 mls/hr IV.SIG Q6H [facility] Rx#:[id number] Output: Urine Amount (Catheter) 1200 / 1200 Indwelling Temp Sensing 1200 / 1200 Catheter Gastric Drainage 104 / 104 Small Bore Feeding Tube 104 / 104 Other: Date of Last Bowel Movement 09/03/17 09/03/17 Narrative: GENERAL: Not very responsive, eyes slightly open, on Non-rebreather. SKIN: Warm and dry. HEAD: Normocephalic. EYES: No scleral icterus. No injection or drainage. NECK: Unable to straighten his neck. CARDIOVASCULAR: Regular rate and rhythm without murmurs, gallops, or rubs. RESPIRATORY: Somewhat coarse breath sounds, moderate air entry. GASTROINTESTINAL: Abdomen soft, non-tender, nondistended. MUSCULOSKELETAL: No cyanosis, or edema. BACK: Nontender without obvious deformity. No CVA tenderness. - Urinary Catheter Management Indwelling Temp Sensing Catheter Cath placed during this visit: no Reason for continuing: Acute urinary retention Results - Labs CBC & Chem 7: 09/04/17 05:49 09/04/17 05:49 Laboratory Results - last 24 hr 09/03/17 09/04/17 09/04/17 21:03 05:49 05:49 WBC 23.4 H RBC 4.12 L Hgb 11.2 L Hct 34.3 L MCV 83.4 MCH 27.3 MCHC 32.7 RDW 15.9 Plt Count 294 MPV 7.7 Prelim Diff (Auto) Slide review pending Neut % (Auto) 94.5 H Lymph % (Auto) 2.1 L [place] % (Auto) 3.3 Eos % (Auto) 0.0 Baso % (Auto) 0.1 Neut # (Auto) 22.1 H Lymph # (Auto) 0.5 L [place] # (Auto) 0.8 Eos # (Auto) 0.0 Baso # (Auto) 0.0 WBC Differential . Diff Scan Auto diff confirmed Differential Comment . Platelet Estimate Normal Platelet Morphology Normal Acanthocytes (Spur) Occ H Puncture Site Patient Temperature O2 Saturation ABG pH ABG pCO2 ABG pO2 ABG HCO3 ABG O2 Content ABG Base Excess ABG Methemoglobin Hemoglobin Carboxyhemoglobin O2 Delivery Device Liter Flow Inspired O2 Critical Value Sodium 149 H Potassium 4.2 Chloride 115 H Carbon Dioxide 22.0 Anion Gap 12 BUN 31 H Creatinine 1.18 Estimated GFR 60 L POC Glucose 188 H Random Glucose 156 H Calcium 8.0 L 09/04/17 09/04/17 09/04/17 07:10 11:23 11:55 WBC RBC Hgb Hct MCV MCH MCHC RDW Plt Count MPV Prelim Diff (Auto) Neut % (Auto) Lymph % (Auto) [place] % (Auto) Eos % (Auto) Baso % (Auto) Neut # (Auto) Lymph # (Auto) [place] # (Auto) Eos # (Auto) Baso # (Auto) WBC Differential Diff Scan Differential Comment Platelet Estimate Platelet Morphology Acanthocytes (Spur) Puncture Site Right brachial Patient Temperature 98.6 O2 Saturation 91 ABG pH 7.49 H ABG pCO2 30 L ABG pO2 62 ABG HCO3 23 ABG O2 Content 14.5 ABG Base Excess 0.0 ABG Methemoglobin 0.9 Hemoglobin 11.3 L Carboxyhemoglobin 1.3 O2 Delivery Device Nonrebreather Liter Flow 15.00 Inspired O2 100 Critical Value No Sodium Potassium Chloride Carbon Dioxide Anion Gap BUN Creatinine Estimated GFR POC Glucose 164 H 149 H Random Glucose Calcium 09/04/17 16:23 WBC RBC Hgb Hct MCV MCH MCHC RDW Plt Count MPV Prelim Diff (Auto) Neut % (Auto) Lymph % (Auto) [place] % (Auto) Eos % (Auto) Baso % (Auto) Neut # (Auto) Lymph # (Auto) [place] # (Auto) Eos # (Auto) Baso # (Auto) WBC Differential Diff Scan Differential Comment Platelet Estimate Platelet Morphology Acanthocytes (Spur) Puncture Site Patient Temperature O2 Saturation ABG pH ABG pCO2 ABG pO2 ABG HCO3 ABG O2 Content ABG Base Excess ABG Methemoglobin Hemoglobin Carboxyhemoglobin O2 Delivery Device Liter Flow Inspired O2 Critical Value Sodium Potassium Chloride Carbon Dioxide Anion Gap BUN Creatinine Estimated GFR POC Glucose 127 H Random Glucose Calcium Microbiology 09/01/17 19:57 Blood - Peripheral Aerobic Blood Culture - Preliminary No growth in 3 days 09/01/17 19:57 Blood - Peripheral Anaerobic Blood Culture - Preliminary No growth in 3 days 09/01/17 20:11 Blood - Peripheral Aerobic Blood Culture - Preliminary No growth in 3 days 09/01/17 20:11 Blood - Peripheral Anaerobic Blood Culture - Preliminary No growth in 3 days 08/30/17 06:15 Blood - Peripheral Aerobic Blood Culture - Final No growth in 5 days 08/30/17 06:15 Blood - Peripheral Anaerobic Blood Culture - Final No growth in 5 days 08/30/17 06:28 Blood - Peripheral Aerobic Blood Culture - Final No growth in 5 days 08/30/17 06:28 Blood - Peripheral Anaerobic Blood Culture - Final No growth in 5 days 08/30/17 02:40 Blood - Peripheral Aerobic Blood Culture - Final Amelie albicans 08/30/17 02:40 Blood - Peripheral Anaerobic Blood Culture - Final No growth in 5 days 08/30/17 02:35 Blood - Peripheral Aerobic Blood Culture - Final No growth in 5 days 08/30/17 02:35 Blood - Peripheral Anaerobic Blood Culture - Final No growth in 5 days - Imaging Impressions Chest X-Ray 09/04/17 12:03 CONCLUSION: Suboptimal exam. Bilateral mostly basilar lung consolidation and pleural effusions appear roughly similar to September 03. Assessment and Plan - Plan Mr. Bhatia is a 77-year-old male with a history of Parkinson's disease, previous stroke, endocarditis who was brought to the hospital due to shortness of breath and O2 desaturation. She will workup indicated significant leukocytosis, pulmonary edema. Urinalysis showed significant pyuria. Probable Amelie sepsis likely source Possible bilateral pneumonia Probable recurrent aspiration pneumonia -Continue Zosyn and micafungin -Discussed with patient's and family members at length. At this point, starting tube feeding would be risky because patient will keep aspirating. -Consulted hospice per 's request. Advanced Parkinson's disease -Continue carbidopa and levodopa. -Continue memantine Hypertension -continue amlodipine 5 mg daily, lisinopril 10 mg daily. However, giving oral medications would not be possible at this point. Full code. Heparin subQ
--- NOTE | 2017-09-04 19:07 | P.PNID ---
Subjective Remarks: Patient is a 76-year-old male, resides in a long-term, with advanced Parkinson's disease, and bedbound, brought into the hospital for further evaluation of shortness of breath and desaturation. There was no mention of any problem with congestion or cough. There is no mention of any fever or chills, or any nausea or vomiting. Since admission the patient has not been febrile. His WBC was 23.4, and it is up to 28.2. Chest x-ray showed pulmonary edema. CT of the chest did not show any pulmonary embolism, there is filling defect in the left atrium suggestive of thrombus, and there is also bilateral lower lobe consolidation/atelectasis and bilateral small effusion as well as a right upper lung nodule. His urinalysis did show significant pyuria. Patient was admitted for sepsis and UTI, and the blood culture done in the emergency room now is growing William. Patient had a Zhang catheter placed on admission. His creatinine went up to 2.03 today. Infectious disease consultation has been requested to assist with evaluation of sepsis, and blood culture with William. Overnight events reviewed. Tk was called this a.m. for decreased level of consciousness. Remains on floor. Lethargic. Dw concern for aspiration. Temps ok No interaction On PNRB, sats 99% One BC with yeast No new (+) BC UC with William albicans Renal US no hydro WBC down to 20.3 Creatinine better, down to 1.56 from 2+ Antibiotics: Diflucan Micafungin Zosyn IV Lines: No evidence of infection Past Medical History: Atrial fibrillation CVA (cerebral vascular accident) Dementia Edema Endocarditis of mitral valve GERD (gastroesophageal reflux disease) Hydrocele in adult Hypertension Hypokalemia PTSD (post-traumatic stress disorder) Parkinson disease Pressure ulcer Prostate cancer H/O mitral valve replacement with tissue graft History of appendectomy History of cryosurgery History of tonsillectomy Allergies/Adverse Reactions: Allergies No Known Allergies Allergy (Mild, Uncoded 08/27/05 01:39) Objective Vital Signs 09/03/17 20:30 09/03/17 22:00 09/04/17 00:23 Temperature 98.9 F 96.9 F L Pulse Rate 94 H 83 Respiratory Rate 21 21 Blood Pressure 146/78 H 162/83 H Pulse Oximetry 96 97 96 09/04/17 04:10 09/04/17 08:00 09/04/17 11:45 Temperature 98.2 F 99.8 F H 100.7 F H Pulse Rate 100 H 114 H 100 H Respiratory Rate 22 18 28 H Blood Pressure 165/89 H 161/88 H 129/91 H Pulse Oximetry 97 93 L 89 L 09/04/17 11:50 09/04/17 11:55 09/04/17 12:00 Temperature 100.7 F H 100.7 F H 101.1 F H Pulse Rate 115 H 107 H 109 H Respiratory Rate 28 H 19 Blood Pressure 166/90 H 153/85 H 152/82 H Pulse Oximetry 88 L 89 L 90 L 09/04/17 12:15 09/04/17 16:00 Temperature 98.0 F Pulse Rate 95 H Respiratory Rate 18 Blood Pressure 151/84 H Pulse Oximetry 96 100 Intake & Output 09/04/17 09/04/17 09/05/17 06:59 18:59 06:59 Intake Total 1550 / 1550 300 / 300 Output Total 1200 / 1200 50 / 50 Balance 350 / 350 250 / 250 Weight 69 kg Intake: IV 1550 / 1550 300 / 300 D5W/1/2NS + KCL 10 mEq Inj 1, 1000 / 1000 000 ML @ 45 mls/hr IV.CONT . [id number] [facility] Rx#:[id number] Mycamine Inj 100 MG In NS Inj 100 / 100 100 ML @ 100 mls/hr IV.SIG Q24H [facility] Rx#:[id number] Zosyn 4.5 GM Premix 4.5 gm In 200 / 200 200 / 200 100 ml @ 200 mls/hr IV.SIG Q6H [facility] Rx#:[id number] Oral 0 / 0 Output: Urine 50 / 50 Urine Amount (Catheter) 1200 / 1200 Indwelling Temp Sensing 1200 / 1200 Catheter Other: Date of Last Bowel Movement 09/03/17 # Bowel Movements 2 09/01/17 19:57 Blood - Peripheral Aerobic Blood Culture - Preliminary No growth in 3 days 09/01/17 19:57 Blood - Peripheral Anaerobic Blood Culture - Preliminary No growth in 3 days 09/01/17 20:11 Blood - Peripheral Aerobic Blood Culture - Preliminary No growth in 3 days 09/01/17 20:11 Blood - Peripheral Anaerobic Blood Culture - Preliminary No growth in 3 days 08/30/17 06:15 Blood - Peripheral Aerobic Blood Culture - Final No growth in 5 days 08/30/17 06:15 Blood - Peripheral Anaerobic Blood Culture - Final No growth in 5 days 08/30/17 06:28 Blood - Peripheral Aerobic Blood Culture - Final No growth in 5 days 08/30/17 06:28 Blood - Peripheral Anaerobic Blood Culture - Final No growth in 5 days 08/30/17 02:40 Blood - Peripheral Aerobic Blood Culture - Final William albicans 08/30/17 02:40 Blood - Peripheral Anaerobic Blood Culture - Final No growth in 5 days 08/30/17 02:35 Blood - Peripheral Aerobic Blood Culture - Final No growth in 5 days 08/30/17 02:35 Blood - Peripheral Anaerobic Blood Culture - Final No growth in 5 days Lab - Hematology Results 09/03/17 09/04/17 06:30 05:49 WBC 18.8 H 23.4 H RBC 4.05 L 4.12 L Hgb 11.0 L 11.2 L Hct 33.3 L 34.3 L MCV 82.3 83.4 MCH 27.1 27.3 MCHC 33.0 32.7 RDW 15.4 15.9 Plt Count 289 294 MPV 7.5 7.7 Prelim Diff (Auto) Slide review pending Neut % (Auto) 95.4 H 94.5 H Lymph % (Auto) 1.7 L 2.1 L [place] % (Auto) 2.9 3.3 Eos % (Auto) 0.0 0.0 Baso % (Auto) 0.0 0.1 Neut # (Auto) 17.9 H 22.1 H Lymph # (Auto) 0.3 L 0.5 L [place] # (Auto) 0.5 0.8 Eos # (Auto) 0.0 0.0 Baso # (Auto) 0.0 0.0 WBC Differential . . Diff Scan Auto diff confirmed Differential Comment Auto diff final . Platelet Estimate Normal Platelet Morphology Normal Acanthocytes (Spur) Occ H Lab - Chemistry Results 09/02/17 09/02/17 09/03/17 18:40 21:22 06:30 Sodium 146 H 148 H Potassium 4.0 D 3.6 Chloride 113 H 114 H Carbon Dioxide 23.6 22.0 Anion Gap 9 12 BUN 20 H 21 H Creatinine 1.41 H 1.22 Estimated GFR 49 L 58 L POC Glucose 115 H Random Glucose 133 H 162 H Calcium 8.3 L 8.1 L 09/03/17 09/03/17 09/03/17 06:54 11:29 16:26 Sodium Potassium Chloride Carbon Dioxide Anion Gap BUN Creatinine Estimated GFR POC Glucose 174 H 187 H 186 H Random Glucose Calcium 09/03/17 09/04/17 09/04/17 21:03 05:49 07:10 Sodium 149 H Potassium 4.2 Chloride 115 H Carbon Dioxide 22.0 Anion Gap 12 BUN 31 H Creatinine 1.18 Estimated GFR 60 L POC Glucose 188 H 164 H Random Glucose 156 H Calcium 8.0 L 09/04/17 09/04/17 11:23 16:23 Sodium Potassium Chloride Carbon Dioxide Anion Gap BUN Creatinine Estimated GFR POC Glucose 149 H 127 H Random Glucose Calcium Imaging: ITS Impressions Chest CTA 08/30/17 03:47 CONCLUSION: 1. No evidence of pulmonary embolus. 2. 3 cm filling defect in the left atrium suspicious for thrombus. 3. Moderate severity bilateral lower lobe pulmonary consolidation/atelectasis and small pleural effusions. 4. 7 mm nodular density right upper lobe. Recommend six-month follow-up noncontrast chest CT. 5. Cholelithiasis. Abdomen/Bladder Ultrasound 09/02/17 00:00 CONCLUSION: Echogenic kidneys bilaterally compatible with medical renal disease. Bladder stone Abdomen X-Ray 09/03/17 00:52 CONCLUSION: 1. Nasoenteric feeding tube tip in the proximal duodenum. Chest X-Ray 09/04/17 12:03 CONCLUSION: Suboptimal exam. Bilateral mostly basilar lung consolidation and pleural effusions appear roughly similar to September 03. Physical Exam: GENERAL: Did not open eyes, not responsive, body very stiff, not in distress SKIN: Cool and dry, no generalized rash, no ecchymoses and no evidence of embolic lesions. HEAD: Atraumatic. Normocephalic. No temporal wasting, or tenderness. EYES: Overly conjunctiva. No petechia or hemorrhage. Pupils equal, round and reactive to light. No scleral icterus. No injection or drainage. EARS, NOSE AND THROAT: Nose without bleeding or purulent nasal discharge. Mucous membranes pink and moist. Limited exam NECK: Neck very stiff and he keeps it in slightly flexed position CARDIOVASCULAR: Regular rate and rhythm. Soft heart sounds RESPIRATORY: Scattered rhonchi L, decreased at bases ABDOMEN: Soft, not distended, no reaction to deep palpation, not guarding. Bowel sounds present and normoactive. EXTREMITIES: No clubbing, cyanosis. Has mild pedal edema. Very rigid extremities, and BLE flexure contractures NEUROLOGICAL: Lethargic. PSYCHIATRIC: Unable to assess LINE: No evidence of infection Assessment and Plan - Plan Impression William sepsis, source, likely - concern with other source S/P MVR with bovine tissue 2005 for Strep sanguis IE Bilateral infiltrates, ?pulmonary edema, ?PNA Severe Parkinson's. bedbound Stage 4 decubitus, looks pretty clean Acute renal failure, etiology? improving - ?due to IV contrast - ?due to sepsis - ?obstruction, has zhang placed here Hx prostate CA, S/P cryoablation Leukocytosis, decreasing Recommendation Continue Diflucan and Micafungin until william has been identified Continue Zosyn Palliative medicine following to determine goals of care, appreciate input notes reviewed. If more (+) BC, will do echo and prob ask ophtha consult Will determine course of Rx once work-up completed D/W RN kevin Carmona. Poor prognosis. covering this weekend. covering for me this weekend.
[2017-09-04] MEDS ORDERED: RESP: Acetylcysteine 10% 4 ML Neb NEB SCH (22:00)
[2017-09-05] MEDS: Heparin - SQ 10,000 UNITS/ML Vial SQ SCH ×2 (05:14→18:02)
[2017-09-05] MEDS: Piperacil/Tazo 4.5 GM Premix 4.5 GM/100 ML BAG IV.SIG SCH ×3 (05:15→15:55)
[2017-09-05 06:23] LABS: Baso % (Auto) 0.1 % (0.0-2.0); Eos % (Auto) 0.1 % (0.0-4.0); Hematocrit 33.5 % (39.0-51.0); Lymph # (Auto) 0.7 th/mm3 (1.0-4.8); Lymph % (Auto) 2.5 % (9.0-44.0); Mean Corpuscular HGB Conc 32.7 % (32.0-36.0); Mean Corpuscular Hemoglobin 27.2 pg (27.0-34.0); Mean Platelet Volume 7.7 fL (7.0-11.0); Mono # (Auto) 0.9 th/mm3 (0.0-0.9); Mono % (Auto) 3.4 % (0.0-8.0); Neut # (Auto) 25.5 th/mm3 (1.8-7.7); Neut % (Auto) 93.9 % (16.0-70.0); Platelet Count 243 th/mm3 (150-450); Red Blood Count 4.03 mil/mm3 (4.50-5.90); Red Cell Distribution Width 15.6 % (11.6-17.2); White Blood Count 27.2 th/mm3 (4.0-11.0)
[2017-09-05 06:57] LABS: Calcium 8.3 mg/dL (8.5-10.1); Potassium 3.5 meq/L (3.5-5.1)
[2017-09-05] MEDS: Senna/Docusate Sodium 8.6/50 MG Tablet PO SCH (09:42)
[2017-09-05] MEDS: amLODIPine 5 MG Tablet PO SCH (09:42)
[2017-09-05] MEDS: Lisinopril 10 MG Tablet PO SCH (09:42)
[2017-09-05] MEDS: MethylPREDNISolone Sod Succinate Inj 40 MG/ML Vial IV.PUSH SCH (09:43)
[2017-09-05 11:14] LABS: Lymphocytes 3 % (9-44); Metamyelocytes 1 % (0-1); Monocytes 1 % (0-8); RBC Morphology Normal (Normal); Tallied Nucleated RBC 2 (0-0)
[2017-09-05 11:15] LABS: Platelet Estimate Normal (Normal); Platelet Morphology Normal (Normal)
[2017-09-05] MEDS: Collagenase Oint 30 GM Tube TOPICAL SCH (14:20)
--- NOTE | 2017-09-05 14:55 | P.PN ---
Subjective Interval history: Nursing denies any deterioration since last night. Patient did have a highly cat yesterday during the day shift when he was desaturating. This is suspected to be due to for further aspiration. Patient has pretty progressive/advanced Parkinson's disease and is a significant aspiration risk despite the possibility of PEG tube placement. Is DNR/DNI. was supposed to meet with hospice today earlier at noon but now that meeting has been pushed back to around 6 PM due to her transportation issues. Physical Exam Vital signs: Vital Signs 09/04/17 16:00 09/04/17 20:00 09/05/17 00:00 Temperature 98.0 F 97.8 F 97.2 F L Pulse Rate 95 H 92 H 91 H Respiratory Rate 18 14 15 Blood Pressure 151/84 H 161/72 H 167/72 H Pulse Oximetry 100 99 100 09/05/17 00:31 09/05/17 03:47 09/05/17 04:00 Temperature 97.3 F L Pulse Rate 91 H 103 H 113 H Respiratory Rate 28 H 15 Blood Pressure 145/75 H Pulse Oximetry 98 98 09/05/17 08:00 09/05/17 09:29 09/05/17 12:00 Temperature 97.9 F Pulse Rate 111 H 85 101 H Respiratory Rate 24 16 26 H Blood Pressure 132/77 122/69 Pulse Oximetry 96 99 98 Intake & Output 09/04/17 09/05/17 09/05/17 18:59 06:59 18:59 Intake Total 300 / 300 1500 / 1500 Output Total 50 / 50 550 / 550 Balance 250 / 250 950 / 950 Weight 69 kg Intake: IV 300 / 300 1400 / 1400 D5W/1/2NS + KCL 10 mEq Inj 1, 1000 / 1000 000 ML @ 42 mls/hr IV.CONT . [id number] [facility] Rx#:[id number] Diflucan 400 mg Premix Bag 200 200 / 200 ML @ 100 mls/hr IV.SIG Q24H [facility] Rx#:[id number] Mycamine Inj 100 MG In NS Inj 100 / 100 100 ML @ 100 mls/hr IV.SIG Q24H [facility] Rx#:[id number] Zosyn 4.5 GM Premix 4.5 gm In 200 / 200 200 / 200 100 ml @ 200 mls/hr IV.SIG Q6H [facility] Rx#:[id number] Oral 0 / 0 100 / 100 Output: Urine 50 / 50 300 / 300 Urine Amount (Catheter) 250 / 250 Indwelling Temp Sensing 250 / 250 Catheter Other: Date of Last Bowel Movement 09/03/17 # Bowel Movements 2 2 Narrative: Coarse breath sounds bilaterally, unlabored breathing Patient will occasionally open his eyes but does not respond to his name at all nor does he wake up anymore with a sternal rub. Heart sounds regular rate and rhythm - Urinary Catheter Management Indwelling Temp Sensing Catheter Cath placed during this visit: no Reason for continuing: Acute urinary retention Results - Labs CBC & Chem 7: 09/05/17 05:08 09/05/17 05:08 Laboratory Results - last 24 hr 09/04/17 09/05/17 09/05/17 16:23 00:55 05:08 WBC 27.2 H RBC 4.03 L Hgb 11.0 L Hct 33.5 L MCV 83.0 MCH 27.2 MCHC 32.7 RDW 15.6 Plt Count 243 MPV 7.7 Prelim Diff (Auto) Slide review pending Neut % (Auto) 93.9 H Lymph % (Auto) 2.5 L [place] % (Auto) 3.4 Eos % (Auto) 0.1 Baso % (Auto) 0.1 Neut # (Auto) 25.5 H Lymph # (Auto) 0.7 L [place] # (Auto) 0.9 Eos # (Auto) 0.0 Baso # (Auto) 0.0 WBC Differential Manual diff final Seg Neuts % (Manual) 91 H Band Neuts % (Manual) 4 Lymphocytes % (Manual) 3 L Monocytes % (Manual) 1 Metamyelocytes % (Man) 1 Abs Neuts (Manual) 26.1 H Nucleated RBCs/100 WBC 2 H Differential Comment . Platelet Estimate Normal Platelet Morphology Normal RBC Morphology Normal Sodium Potassium Chloride Carbon Dioxide Anion Gap BUN Creatinine Estimated GFR POC Glucose 127 H 125 H Random Glucose Calcium 09/05/17 09/05/17 05:08 11:59 WBC RBC Hgb Hct MCV MCH MCHC RDW Plt Count MPV Prelim Diff (Auto) Neut % (Auto) Lymph % (Auto) [place] % (Auto) Eos % (Auto) Baso % (Auto) Neut # (Auto) Lymph # (Auto) [place] # (Auto) Eos # (Auto) Baso # (Auto) WBC Differential Seg Neuts % (Manual) Band Neuts % (Manual) Lymphocytes % (Manual) Monocytes % (Manual) Metamyelocytes % (Man) Abs Neuts (Manual) Nucleated RBCs/100 WBC Differential Comment Platelet Estimate Platelet Morphology RBC Morphology Sodium 149 H Potassium 3.5 Chloride 113 H Carbon Dioxide 23.0 Anion Gap 13 BUN 47 H Creatinine 1.15 Estimated GFR 62 L POC Glucose 141 H Random Glucose 121 H Calcium 8.3 L Microbiology 09/01/17 19:57 Blood - Peripheral Aerobic Blood Culture - Preliminary No growth in 4 days 09/01/17 19:57 Blood - Peripheral Anaerobic Blood Culture - Preliminary No growth in 4 days 09/01/17 20:11 Blood - Peripheral Aerobic Blood Culture - Preliminary No growth in 4 days 09/01/17 20:11 Blood - Peripheral Anaerobic Blood Culture - Preliminary No growth in 4 days 08/30/17 06:15 Blood - Peripheral Aerobic Blood Culture - Final No growth in 5 days 08/30/17 06:15 Blood - Peripheral Anaerobic Blood Culture - Final No growth in 5 days 08/30/17 06:28 Blood - Peripheral Aerobic Blood Culture - Final No growth in 5 days 08/30/17 06:28 Blood - Peripheral Anaerobic Blood Culture - Final No growth in 5 days 08/30/17 02:40 Blood - Peripheral Aerobic Blood Culture - Final Amelie albicans 08/30/17 02:40 Blood - Peripheral Anaerobic Blood Culture - Final No growth in 5 days 08/30/17 02:35 Blood - Peripheral Aerobic Blood Culture - Final No growth in 5 days 08/30/17 02:35 Blood - Peripheral Anaerobic Blood Culture - Final No growth in 5 days Assessment and Plan - Plan Mr. Bhatia is a 77-year-old male with a history of Parkinson's disease, previous stroke, endocarditis who was brought to the hospital due to shortness of breath and O2 desaturation. Workup indicated significant leukocytosis, pulmonary edema. Urinalysis showed significant pyuria. Probable Amelie sepsis likely source Possible bilateral pneumonia Probable recurrent aspiration pneumonia -Continue Zosyn and micafungin -At this point, starting tube feeding would be risky because patient will keep aspirating. NPO -Consulted hospice per 's request now pushed to later this evening. Advanced Parkinson's disease -Continue carbidopa and levodopa. -Continue memantine Hypertension - prn vasotec since pt can't tolerate oral meds at this point. Full code. Heparin subQ
[2017-09-05] MEDS: KCL 10 mEq/D5W/NaCl 0.45% Inj 1,000 ML IV.CONT SCH (17:28)
--- NOTE | 2017-09-18 09:40 | P.DS ---
Date of admission: 08/30/17 05:47 Primary care physician: Herminio Mendez MD Brief History from admission: The patient is chronically ill 76-year-old male with past medical history of advanced Parkinson's, bedbound, atrial fibrillation, endocarditis status post valve replacement, prostate cancer. [facility] of respiratory distress. He was saturating 70% on 2 L by nasal cannula with Rales in all lung [place] when EMS arrived. Patient also has stage IV ulcer and he receive IV Zosyn for sepsis. The patient is DNR/ DNI. History is obtained from records, staff and spoke with his by phone. also is telling me she was talking with hospice halfway facility and she is considering hospice. However what the is very upset because EMS brought the patient [place] and she wanted the patient to go to [facility] was he always being there admitted and he was recently admitted at [facility] for sepsis stage 4 decub ulcers. The patient follows with neurologist Dr. Childress and also with his PCP. DS: Summary Hospital Course: Patient was treated with IV antibiotics and IV antifungals for Amelie sepsis and suspected bilateral aspiration recurrent pneumonia. Patient was a high risk of aspiration even with a feeding tube. Patient was ultimately discharged hospice per 's decision. - Time Spent with Patient Total time spent providing and/or coordinating discharge services: Less than 30 minutes - Quality: VTE Deep Vein Thrombosis/Pulmonary Embolism Present on Admission: No Results Procedures completed during hospitalization: . - Impressions ITS Impressions Chest CTA 08/30/17 03:47 CONCLUSION: 1. No evidence of pulmonary embolus. 2. 3 cm filling defect in the left atrium suspicious for thrombus. 3. Moderate severity bilateral lower lobe pulmonary consolidation/atelectasis and small pleural effusions. 4. 7 mm nodular density right upper lobe. Recommend six-month follow-up noncontrast chest CT. 5. Cholelithiasis. Abdomen/Bladder Ultrasound 09/02/17 00:00 CONCLUSION: Echogenic kidneys bilaterally compatible with medical renal disease. Bladder stone Abdomen X-Ray 09/03/17 00:52 CONCLUSION: 1. Nasoenteric feeding tube tip in the proximal duodenum. Chest X-Ray 09/04/17 12:03 CONCLUSION: Suboptimal exam. Bilateral mostly basilar lung consolidation and pleural effusions appear roughly similar to September 03. Discharge Plan - Discharge Disposition Patient Disposition: [facility] Hospice/Med Facility - Discharge Condition Condition: Fair - Discharge Order Discharge Orders: Discharge Order (Routine); Ordered 09/05/17 Ordered By: Kervin Oropeza - Physicians Team Primary Care Provider: Herminio Mendez Attending Provider: Kervin Oropeza Other Providers: Donn Vu MD ; Alan Brown MD, PhD ; Andrews Yu MD ; Gregoria Molina MD
== END 2017-09-05 20:19 | disposition hospice, inpatient (51) ==
LOC: NEPE 01:48 → NEDA 05:47 → N07 08:24
PROVIDERS: ADMIT Hospitalist; ATTEND Hospitalist